=== PATIENT | female | born 1955 | race Caucasian/White ===

== ENCOUNTER 2016-08-11 07:30 | Outpatient (CLI) | payer OTHER ==
[~2016-08-11] VITALS: Ht 162.6 cm; Wt 79.4 kg
[~2016-08-11 07:30] MED LIST: ALBUTEROL MDI; ASPI1TAB PO; ATOR1TAB21 PO; COMBVENT; FISH100049 PO; GLIP5TAB15 PO; LEVA500T; LISI10TA2 PO; METF1000 PO; NICO21DI4; NS 1,000 ML IV SCH; PRED10TA2; PRED20TA; [UNRECOGNIZED DRUG - OTHER] PO
[2016-08-11] MEDS ORDERED: PROPOFOL 200 MG/20 ML VIAL As Ordered ONE (08:12)
--- NOTE | 2016-08-11 08:46 | ROOR ---
Patient Name: Ashlyn Moyer Procedure Date: 08/11/2016 8:18 AM Date of : 1955 Age: 60 Room: [facility] Gender: Female Note Status: Finalized Procedure: Colonoscopy Indications: High risk colon cancer surveillance: Personal history of colonic polyps Providers: Charles MACEDO MD Referring MD: Ace Brewster MD Requesting Provider: Medicines: Monitored Anesthesia Care Complications: No immediate complications. Procedure: Pre-Anesthesia Assessment: - The heart rate, respiratory rate, oxygen saturations, blood pressure, adequacy of pulmonary ventilation, and response to care were monitored throughout the procedure. The Colonoscope was introduced through the anus and advanced to the cecum, identified by appendiceal orifice and ileocecal valve. The colonoscopy was performed without difficulty. The patient tolerated the procedure well. The quality of the bowel preparation was good. Findings: The perianal and digital rectal examinations were normal. Two sessile polyps were found in the sigmoid colon. The polyps were 4 to 5 mm in size. These polyps were removed with a cold snare. Resection and retrieval were complete. Multiple medium-mouthed diverticula were found in the sigmoid colon. Internal hemorrhoids were found during retroflexion. The hemorrhoids were mild. The exam was otherwise without abnormality on direct and retroflexion views. (Exam: Complete, Prep: Good or Excellent.) Impression: - Two 4 to 5 mm polyps in the sigmoid colon, removed with a cold snare. Resected and retrieved. - Mild diverticulosis in the sigmoid colon. - Internal hemorrhoids. - The examination was otherwise normal on direct and retroflexion views. Recommendation: - Repeat colonoscopy in 5 years for surveillance. Charles Maecdo MD Charles MACEDO MD 08/11/2016 8:45:41 AM This report has been signed electronically. Number of Addenda: 0 Note Initiated On: 08/11/2016 8:18 AM Estimated Blood Loss: Estimated blood loss: none.
[2016-08-11 09:10] VITALS: BP 140/79
== END 2016-08-11 09:48 ==
LOC: M OPP 07:30
PROVIDERS: ATTEND Internal Medicine Gastroenterology
DX: Z12.11 Encounter for screening for malignant neoplasm of colon (principal); Z86.010 Personal history of colon polyps; D12.5 Benign neoplasm of sigmoid colon; K57.30 Diverticulosis of large intestine without perforation or abscess without bleeding; K64.8 Other hemorrhoids; I10 Essential (primary) hypertension; J44.9 Chronic obstructive pulmonary disease, unspecified; E11.9 Type 2 diabetes mellitus without complications; M19.90 Unspecified osteoarthritis, unspecified site; M54.2 Cervicalgia; Z79.82 Long term (current) use of aspirin; Z79.84 Long term (current) use of oral hypoglycemic drugs; Z79.899 Other long term (current) drug therapy

== ENCOUNTER 2016-08-21 15:43 | Inpatient (IN) | payer OTHER ==
[~2016-08-21] VITALS: Ht 162.6 cm; Wt 85.3 kg
[~2016-08-21 15:43] MED LIST changes: -NS 1,000 ML IV SCH
[2016-08-21] MEDS ORDERED: ANORO (16:09)
[2016-08-21] MEDS ORDERED: LASI40TA PO (16:09)
[2016-08-21] MEDS ORDERED: methylPREDNISolone INJ 125 MG/2 ML VIAL (J2930) IV ONE (16:30)
[2016-08-21] MEDS: IPRATROPIUM 0.5MG/ALBUTEROL 2.5MG INH SOL UD 3ML (DUONEB)(J7620) NEB PRN ×3 (16:44→18:00)
[2016-08-21 16:51] LABS: ABG BASE EXCESS 4.7 (-2.0-2.0); ABG HCO3 33.3 MEQ/L (22.0-26.0); ABG PARTIAL PRESSURE O2 71.5 mmHg (75.0-100.0); ABG STANDARD HCO3 28.6 MEQ/L (22.0-26.0); ABG TOTAL CO2 35.3 MEQ/L (23.0-31.0); ABG pH (ARTERIAL) 7.324 UNITS (7.350-7.450)
[2016-08-21 16:52] LABS: ABG PARTIAL PRESSURE CO2 65.5 mmHg (35.0-45.0)
[2016-08-21 17:06] LABS: BASO % 0.6 % (0.0-1.0); EOS % 0.4 % (0.0-3.0); LARGE UNSTAINED CELL # 0.2 K/mm3 (0.0-0.4); LARGE UNSTAINED CELL % 2.7 % (0.0-4.0); LYMPH # 1.1 K/mm3 (1.5-4.5); LYMPH % 19.5 % (24.0-44.0); MEAN CORPUSCULAR HEMOGLOBIN 30.6 pg (27.0-33.0); MEAN CORPUSCULAR HGB CONC 30.9 g/dl (32.0-36.5); MEAN CORPUSCULAR VOLUME 99.2 fl (80.0-96.0); MONO # 0.3 K/mm3 (0.0-0.8); MONO % 5.8 % (0.0-5.0); NEUTROPHILS % 70.9 % (36.0-66.0); PLATELET COUNT, AUTOMATED 190 k/mm3 (150-450); RED CELL DISTRIBUTION WIDTH 13.8 % (11.5-14.5); WHITE BLOOD COUNT 5.7 K/mm3 (4.0-10.0)
[2016-08-21 17:09] LABS: CREATININE FOR GFR 1.02 MG/DL (0.55-1.02); GLOMERULAR FILTRATION RATE 58.8 (>45); POTASSIUM SERUM 4.7 MEQ/L (3.5-5.1)
[2016-08-21] MEDS ORDERED: ISOVUE-370 76% 100ML VIAL (Q9967) As Ordered ONE (17:34)
--- NOTE | 2016-08-21 17:54 | REP ---
Portable chest x-ray: Single view. History: Dyspnea and cough. Comparison study: August 13, 2016. Findings: EKG monitoring electrodes overlie the chest. The lungs are well inflated and clear. Pleural angles are sharp. Heart is near the upper range of normal in size. Pulmonary vasculature appears slightly cephalized. There is no evidence of pulmonary edema or pleural effusion. Impression: Cephalization of pulmonary vasculature. Fullness in the azygos venous region. Question CHF. No acute infiltrate. No pleural effusion seen. Signed by Berhane Al MD 08/21/2016 07:02 P
[2016-08-21] MEDS ORDERED: ONGL1TAB9 PO (18:47)
[2016-08-21] MEDS ORDERED: GLIP5TAB8 PO (18:47)
[2016-08-21] MEDS ORDERED: LISI10TA4 PO (18:47)
[2016-08-21] MEDS ORDERED: COMBAER6 INH (18:47)
--- NOTE | 2016-08-21 19:02 | REP ---
CT pulmonary angiogram: With IV contrast. History: Question pulmonary embolism. Comparison studies: March 13, 2009 Contrast dose: 75 cc's of Isovue [address] technique: Helical scanning is acquired and overlapping 1.5 mm and contiguous 3 mm axial images are reformatted. In addition, a 3-D work station is deployed to generate thick slab maximum intensity projection images in sagittal and coronal imaging projections. CT pulmonary angiographic findings: There is good opacification of the pulmonary arterial tree. There is no CT evidence of pulmonary embolism. No hilar or mediastinal mass is seen. There are a few pretracheal and subcarinal and hilar lymph nodes, but these are not enlarged. Indeed they are unchanged from the 2009 prior study. Lung hinds show no evidence of infiltrate. No pleural effusion or pericardial effusion is seen. No extrathoracic mass or adenopathy is observed. No adrenal lesion is seen. The visualized upper abdominal structures are unremarkable. No bony lesion is seen. Impression: 1. No CT evidence of pulmonary embolism. 2. No active cardiopulmonary disease. Stable mediastinal and hilar lymph nodes. Signed by Berhane Al MD 08/21/2016 07:03 P
[2016-08-21] MEDS ORDERED: ACETAMINOPHEN TAB 650MG DOSE (2X325MG) PO PRN (20:00)
[2016-08-21] MEDS ORDERED: DEXTROSE 50% 50 ML SYRINGE IV PRN (20:00)
[2016-08-21] MEDS ORDERED: ALBUTEROL SULFATE 2.5 MG/0.5 ML INH NEB SOLN INH PRN (20:00)
[2016-08-21] MEDS ORDERED: GLUCAGON FOR INJ 1 MG VIAL (J1610) SC PRN (20:00)
[2016-08-21] MEDS ORDERED: ONDANSETRON 4MG/2ML VIAL (J2405) IV PRN (20:00)
[2016-08-21] MEDS ORDERED: GLUCOSE 4 GM CHEW TABLET PO PRN (20:00)
--- NOTE | 2016-08-21 20:49 | HPEPDOC ---
General Date of Admission Aug 21, 2016 at 19:46 Primary Care Physician: NIKA NEGRON MD [facility] Attending Physician: BRENDON GRANT MD Chief Complaint The patient is a 60-year-old female admitted with a reason for visit of Copd W/ Exacerbation. Source: Patient, Family Exam Limitations: No limitations Timing/Duration: Week(s), Constant, Getting worse Severity: Moderate Associated Symptoms: Cough, Shortness of breath History of Present Illness PRIMARY CARE PROVIDER: Hardeep Negron MD [facility] CHIEF COMPLAINT: Worsening shortness of breath HISTORY OF PRESENT ILLNESS: 60 year old female with past medical history of COPD, insulin- dependent diabetes mellitus, history of pneumonia many years ago, diverticulosis , sigmoid colon polyps status post near polypectomy with a path report stating: adenomatous polyps/tubular adenomas, heavy tobacco smoking is presenting today for a greater than 1 week history of progressively worsening shortness of breath which was the worst last night and today. Daughter at bedside states that patient had colonoscopy the week of August 14 at which time after the procedure, her oxygen level was not able to go above 78%, she was put on 4 L of oxygen which brought her O2 sat up to the low 90s. When taken off the oxygen, the O2 sat went back down to 82%. She was then referred to her PCP Dr. Negron to get oxygen. On August 13, she went to Dr. Negron realized that the patient was retaining fluid. He referred for a chest x-ray and echocardiogram. Chest x- ray was done at [facility] and the family had found out this week that there were fluid in the patient's lungs. Dr. Negron started the patient on water pills and doubled up the pills this week because the patient was still having symptoms of shortness of breath. [facility] [place] [facility] [place] [facility] [place] but the patient had gotten severe shortness of breath last night could not sleep and could not take deep breaths. She was then brought to the emergency department around 3 PM and her oxygen saturation was 69% as per daughter. Upon review of systems, the patient reports ankle swelling, retaining fluid, dry cough, and daytime sleepiness as per daughter. Daughter states that patient does fall asleep in the middle of a conversation. Patient denies fevers , chills, chest pain, dizziness, sore throat, runny nose, phlegm production, abdominal pain, nausea, vomiting, diarrhea, constipation, rashes or lesions. When the patient came to the ED, her vital signs were significant for a tachycardia with a pulse of 106, tachypnea with respiratory failure 4, a blood pressure was elevated at 167/80, and a pulse ox which was 82% on room air. In the ED, an ABG was done which showed a pH of 7.324/PCO2 65.5/PaO2 of 71.5 which is consistent with primary disorder of respiratory acidosis with metabolic alkalosis. Labs were significant for a bicarbonate of 39, a glucose of 369, a BNP of 424, a negative troponin of 0.03, CK-MB of 17, a TSH of 0.589, a lactic acid of 1.6, a neutrophil percent of 70.9, a lymphocyte percent of 19.5, a monocyte percent of 5.8, and a lymphocyte number of 1.1. EKG was done today that showed sinus rhythm with a short OR interval, normal axis, right ventricular hypertrophy and ST-T change with a ventricular rate of 98 bpm, OR interval 110 ms, QRS duration 78 ms, and a QTc interval 409 ms. Previous EKG done on 03/12/2009 had shown sinus tachycardia with a ventricular rate of 102. In addition, a CT and of the chest with IV contrast was done which showed no evidence of PE, no active cardiopulmonary disease, stable mediastinal and hilar lymph nodes. A portable chest x-ray that showed no evidence of pulmonary edema, pleural effusion, cephalization of pulmonary vasculature, fullness in the azygous vein venous region, no acute infiltrate, and questionable CHF. In the ED, the patient was administered 3 doses of DuoNeb 0.5 mg/2.5 mg every 20 minutes when necessary shortness of breath, Solu-Medrol 125 mg IV once, and 4 L of oxygen via nasal cannula. After the patient was placed on 4 L of oxygen, her pulse oximetry readings range from 92-98%. ALLERGIES: None reported. PAST MEDICAL HISTORY: COPD NIDDM History of pneumonia many years ago Diverticulosis Sigmoid colon: Polyps status post near polypectomy with adenomatous polyps/ tubular adenomas on pathology Umbilical hernia Wears eyeglasses for reading Heavy tobacco smoker PAST SURGICAL HISTORY: Tubal ligation Appendectomy with hernia repair 1996 Colonoscopy to cecum with cold snare polypectomy SOCIAL HISTORY: Smoked greater than one pack per day for at least 40 years," a couple cartons per week". Now, smokes a few cigarettes per day. Tried vaporizer cigarettes. No EtOH use. No illicit drug use. Lives with at home with one dog Does not work Has received the flu shot this season Admits she has received the pneumonia shot but cannot remember when FAMILY HISTORY: Multiple myeloma Heart disease Diabetes mellitus in mother, father, aunt Son who of esophageal cancer at age 39 Throat cancer CODE STATUS: FULL CODE for now and does not have MOLST form yet. Healthcare Proxy: Ethan Moyer REVIEW OF SYSTEMS: All review of systems were negative except for as stated above. PHYSICAL EXAMINATION: Vitals: T: 98.8, BP: 167/80, RR: 24, P:106, O2 Saturation: 82% room air General: Cooperative, obese elderly female sitting up at head of bed, in no acute distress. HEENT: Head: normocephalic, atraumatic. Eyes: sclera are nonicteric. Nose: No external lesions Throat: no pharyngeal erythema or exudates, moist buccal mucosa Neck: No thyromegaly. Respiratory: Positive and expiratory wheezes in all lung hinds bilaterally. Minimal crackles appreciated in right lung base. No accessory muscle usage noted. Cardiovascular: regular rate and rhythm, with no murmurs, rubs or gallops. Abdomen: soft, nontender, nondistended, no hepatosplenomegaly appreciated. Bowel sounds present. Extremities: +2 pitting lower extremity edema bilaterally. Neurological: No focal neurologic deficits appreciated bilaterally. Musculoskeletal: Normal range of motion. Lymphatics: No cervical lymphadenopathy bilaterally. Integumentary: No rashes or lesions appreciated. Vascular: +2 left radial pulse, +2 dorsalis pedis/+2 posterior tibialis pulses bilaterally LABORATORY DATA: Please see below. MICROBIOLOGY: Blood cultures pending. ELECTROCARDIOGRAM: As stated above. RADIOLOGY: CT scan of the chest with IV contrast: No evidence of PE, no active cardiopulmonary disease, stable mediastinal hilar lymph nodes. Portable chest x-ray: No evidence of pulmonary edema or pleural effusion, cephalization of pulmonary vasculature, fullness in the azygous venous region, no acute infiltrate, questionable CHF. ASSESSMENT: 60-year-old female with a past medical history significant for COPD, heavy tobacco smoking, history of pneumonia many years ago, xxa-cokirkd-ovmasthih diabetes mellitus, presents for acute on chronic hypoxic respiratory failure with chronic hypercapnic respiratory failure/acute on chronic COPD exacerbation. She also presents with lower extremity edema. PLAN: -Acute on Chronic Hypoxic Respiratory Failure with Chronic Hypercapnic Respiratory Failure/Acute on Chronic COPD exacerbation: Will start Solu-Medrol 60 mg IV every 8 hours, DuoNeb 3 mL nebulizer routine 4 times a day/every 20 minutes when necessary shortness of breath. Continue Proventil neb 2.5 mg every 2 hours when necessary shortness of breath/wheezing. We will keep on oxygen via nasal cannula and titrate to 88-92%. Will do accapella and do aggressive pulmonary toilet. Patient with no evidence of fever, leukocytosis or cough with sputum production. We'll hold off on antibiotics at this point in time. Have ordered blood cultures. We'll follow up when available. Have placed patient on nicotine patch 21 mg per 24 hours 1 patch TD daily. -Lower Extremity Edema: We'll give Lasix 40 mg IV twice a day. We'll monitor kidney function with BMPs daily and magnesium level daily. We'll replete electrolytes as necessary. Keep magnesium greater than 2 and potassium > 4. Monitor daily I's and O's and weights. -Insulin-dependent diabetes mellitus: We'll continue aspirin 81 mg by mouth daily, atorvastatin 20 mg by mouth daily, and placed on sliding scale insulin Humalog subcutaneous daily at bedtime and before meals. For hypoglycemia, have D50W 50% 25 mL IV when necessary, glucagon 1 mg subcutaneous when necessary, and glucose 16 grams PRN. -Heavy tobacco smoker: Had a long discussion regarding tobacco cessation. Have placed on nicotine patch as above. -Continue home medications. FULL CODE status for now. Will plan on discussing and completing MOLST form with patient tomorrow. DVT ppx: Lovenox 40 mg subcutaneous daily. Immunizations as per protocol. My preceptor for this patient encounter was Dr. Brendon Grant, and was physically present in the building during the encounter and was fully available. As needed , all aspects of the patient interview, examination, medical decision making process, and medical care plan development were reviewed and approved by the preceptor. Preceptor is aware and concurs with the plan as stated in the body of this note and will attest to such by his/her cosignature. Home Medications Scheduled Albuterol/Ipratropium (Combivent Respimat 20-100 Mcg/Act) 1 Aer Aer 1 PUFF INH QID (Reported) Aspirin (Aspirin 81) 81 Mg Tab 81 MG PO DAILY (Reported) Atorvastatin Calcium (Atorvastatin Calcium) 20 Mg Tab 20 MG PO DAILY (Reported ) Fish Oil (Fish Oil 1000 mg) 1 Cap Cap 1 CAP PO BID (Reported) Furosemide (Lasix) 40 Mg Tab 40 MG PO DAILY (Reported) Glipizide (Glipizide) 5 Mg Tab 5 MG PO BID (Reported) Lisinopril (Lisinopril) 10 Mg Tab 10 MG PO DAILY (Reported) Metformin Hydrochloride (Metformin HCl) 1,000 Mg Tab 1,000 MG PO BID (Reported ) Saxagliptin Hydrochloride (Onglyza) 5 Mg Tab 5 MG PO DAILY (Reported) Allergies Coded Allergies: No Known Drug Allergy (Verified Allergy, Unknown, 09/13/12) Vital Signs As above. Laboratory Data Labs 24H Laboratory Tests 2 08/21/16 16:37: B-Type Natriuretic Peptide 424H, White Blood Count 5.7, Red Blood Count 5.13, Hemoglobin 15.7, Hematocrit 50.9H, Mean Corpuscular Volume 99.2H, Mean Corpuscular Hemoglobin 30.6, Mean Corpuscular Hemoglobin Concent 30.9L, Red Cell Distribution Width 13.8, Platelet Count 190, Neutrophils (%) (Auto) 70.9H, Lymphocytes (%) (Auto) 19.5L, Monocytes (%) (Auto) 5.8H, Eosinophils (%) (Auto) 0.4, Basophils (%) (Auto) 0.6, Neutrophils # (Auto) 4.0, Lymphocytes # (Auto) 1.1L, Monocytes # (Auto) 0.3, Eosinophils # (Auto) 0.0, Basophils # (Auto) 0.0, Lactic Acid (Sepsis) 1.6, Large Unclassified Cells # 0.2, Large Unclassified Cells % 2.7, Thyroid Stimulating Hormone (TSH) 0.589 08/21/16 16:38: Anion Gap 5L, Blood Urea Nitrogen 15, Creatinine 1.02, Sodium Level 138, Potassium Level 4.7, Chloride Level 94L, Carbon Dioxide Level 39H, Calcium Level 8.0L, Total Creatine Kinase 68, Creatine Kinase MB 1.7, Creatine Kinase MB Relative Index 2.50, Glomerular Filtration Rate 58.8, Troponin I 0.03 08/21/16 16:39: Arterial Blood pH 7.324L, Arterial Blood Partial Pressure CO2 65.5*H, Arterial Blood Partial Pressure O2 71.5L, Arterial Blood Total CO2 35.3H, Arterial Blood HCO3 33.3H, Arterial Blood Base Excess 4.7H, Arterial Blood Oxygen Saturation 94.3L, Blood Gas Bicarbonate Standard 28.6H CBC/BMP Laboratory Tests 08/21/16 16:37 Red Blood Count 5.13, Mean Corpuscular Volume 99.2 H, Mean Corpuscular Hemoglobin 30.6, Mean Corpuscular Hemoglobin Concent 30.9 L, Red Cell Distribution Width 13.8, Neutrophils (%) (Auto) 70.9 H, Lymphocytes (%) (Auto) 19.5 L, Monocytes (%) (Auto) 5.8 H, Eosinophils (%) (Auto) 0.4, Basophils (%) ( Auto) 0.6, Neutrophils # (Auto) 4.0, Lymphocytes # (Auto) 1.1 L, Monocytes # ( Auto) 0.3, Eosinophils # (Auto) 0.0, Basophils # (Auto) 0.0 08/21/16 16:38 Calcium Level 8.0 L, Total Creatine Kinase 68 Microbiology Microbiology 08/21/16 Blood Culture, Received Pending 08/21/16 Blood Culture, Received Pending Plan / VTE VTE Prophylaxis Ordered?: Yes (Lovenox) [place] [facility] [place] 20:[place] [facility] [place] 2016 20:49
[2016-08-21] MEDS: IPRATROPIUM 0.5MG/ALBUTEROL 2.5MG INH SOL UD 3ML (DUONEB)(J7620) NEB SCH (21:17)
[2016-08-21] MEDS: NICOTINE 21MG/24HR 1 EA TRANSDERMAL TD SCH (22:10)
[2016-08-21] MEDS: HumaLOG INSULIN (NovoLOG) PER UNIT SC SCH (22:11)
[2016-08-21 22:25] VITALS: BP 140/58
[2016-08-21] MEDS: OMEGA-3 1050MG CAPSULE PO SCH (22:38)
[2016-08-21 23:00] VITALS: O2SAT 90
[2016-08-22] VITALS (17 sets, daily range): BP systolic 124–155; BP diastolic 62–81; O2SAT 92–98
[2016-08-22] MEDS: methylPREDNISolone INJ 125 MG/2 ML VIAL (J2930) IV SCH ×3 (00:10→20:30)
[2016-08-22] MEDS ORDERED: SLF 3 ML SYR IV PRN (00:30)
[2016-08-22] MEDS: SLF 3 ML SYR IV SCH ×3 (04:24→20:31)
[2016-08-22] MEDS ORDERED: HumaLOG INSULIN (NovoLOG) PER UNIT SC ONE (05:45)
[2016-08-22] MEDS: IPRATROPIUM 0.5MG/ALBUTEROL 2.5MG INH SOL UD 3ML (DUONEB)(J7620) NEB SCH ×4 (07:46→19:55)
[2016-08-22 07:59] LABS: MEAN CORPUSCULAR HEMOGLOBIN 30.3 pg (27.0-33.0); MEAN CORPUSCULAR HGB CONC 29.3 g/dl (32.0-36.5); MEAN CORPUSCULAR VOLUME 103.5 fl (80.0-96.0); RED CELL DISTRIBUTION WIDTH 13.5 % (11.5-14.5); WHITE BLOOD COUNT 3.5 K/mm3 (4.0-10.0)
[2016-08-22 08:07] LABS: CALCIUM LEVEL 8.5 MG/DL (8.8-10.2); CREATININE FOR GFR 1.09 MG/DL (0.55-1.02); GLOMERULAR FILTRATION RATE 54.5 (>45); MAGNESIUM LEVEL 2.1 MG/DL (1.8-2.4)
[2016-08-22 08:16] LABS: POTASSIUM SERUM 5.5 MEQ/L (3.5-5.1)
[2016-08-22] MEDS: ENOXAPARIN 40 MG/0.4 ML SYRINGE (J1650) SC SCH (08:53)
[2016-08-22] MEDS: FUROSEMIDE 40 MG/4 ML VIAL (J1940) IV SCH ×2 (08:54→17:07)
[2016-08-22] MEDS: ASPIRIN 81 MG ENTERIC TAB PO SCH (08:55)
[2016-08-22] MEDS: ATORVASTATIN 20 MG TAB PO SCH (08:55)
[2016-08-22] MEDS: NICOTINE 21MG/24HR 1 EA TRANSDERMAL TD SCH (08:55)
[2016-08-22] MEDS: OMEGA-3 1050MG CAPSULE PO SCH ×2 (08:55→20:31)
[2016-08-22] MEDS: HumaLOG INSULIN (NovoLOG) PER UNIT SC SCH ×4 (08:56→20:30)
[2016-08-22] MEDS: DOXYCYCLINE HYCLATE 100 MG in D5W MINI-BAG PLUS 100 ML IV SCH ×2 (10:18→21:41)
--- NOTE | 2016-08-22 12:17 | IPNPDOC ---
Text Note Date of Service The patient was seen on 08/22/16. NOTE SUBJECTIVE: 60 yo F was seen and examined at bedside. Denies fevers, chills, chest pain, dizziness, headache, nausea, vomiting, abdominal pain, diarrhea, constipation. Admits she still has leg swelling. Admits she has paroxysmal nocturnal dyspnea, orthopnea, and has to sleep with 3 pillows propped up. She admits to SOB with exertion. Patient's daughter at bedside also reports patient' s sugar level went into the 500s overnight, the patient became agitated and confused, and she refused her labs this morning because of that. According to day nursing report, patient became combative and her blood glucose was 593, 10 units of insulin were administered, and blood glucose is now down to 516. Labs were eventually drawn this morning at 8 AM. Please see below. In addition, daughter states patient has not had echocardiogram that was ordered by Dr. Brewster yet. Patient is also not on home oxygen or CPAP normally, but patient just got home oxygen last night that Dr. Brewster had ordered for her. In addition, patient has not had a sleep study nor does she follow with a receiving clerk. OBJECTIVE: Vitals: T: 98.1, BP: 141/76, RR: 22, P:96, O2 Saturation: 93% on 3 L nasal cannula. General: Cooperative, obese elderly female sitting up in middle of bed, in no acute distress, AAO x 3. HEENT: Head: normocephalic, atraumatic. Eyes: sclera are nonicteric. Nose: No external lesions Neck: No thyromegaly. Respiratory: Positive end expiratory wheezes in all lung hinds bilaterally. Minimal crackles appreciated in right lung base. No accessory muscle usage noted. Cardiovascular: regular rate and rhythm, with no murmurs, rubs or gallops. Abdomen: soft, nontender, nondistended, no hepatosplenomegaly appreciated. Bowel sounds present. Extremities: +2 pitting lower extremity edema bilaterally. Neurological: No focal neurologic deficits appreciated bilaterally. Musculoskeletal: Normal range of motion. Lymphatics: No cervical lymphadenopathy bilaterally. Integumentary: No rashes or lesions appreciated. Vascular: +2 left radial pulse, +2 dorsalis pedis pulses bilaterally. LABORATORY DATA: Please see below. Morning Labs from 08/22/16 WBC: 3.5 (L) K: 5.5 (H) CO2: 37 (H) BUN: 23 (H) Cr: 1.09 (H) Glucose: 516 (H) M.1 (N) MICROBIOLOGY: Blood cultures pending. ELECTROCARDIOGRAM from 08/22/16 (Repeat): Showed: Intervals [place] Rate: 98 P: 73 MA: 123 QRS: 105 QRSD: 94 T: 48 QT: 332 QTc: [address] Garcia: "Normal sinus rhythm at 98 bpm. P pulmonale? Right axis deviation with low voltages and poor precordial R-wave progression; body habitus versus pulmonary disease." RADIOLOGY: No new imaging today. Echocardiogram will be pending. ASSESSMENT: 60-year-old female with a past medical history significant for COPD, heavy tobacco smoking, history of pneumonia many years ago, xix-vrldbvw-rgedamvnv diabetes mellitus, presents for acute on chronic hypoxic respiratory failure with chronic hypercapnic respiratory failure/acute on chronic COPD exacerbation. She also presents with lower extremity edema. PLAN: -Acute on Chronic Hypoxic Respiratory Failure with Chronic Hypercapnic Respiratory Failure/Acute on Chronic COPD exacerbation: Suspect additionally obstructive sleep apnea that patient should definitely have evaluation for as outpatient as she reports PND. Also have some suspicion for R heart failure as patient reports SOB with exertion as well as orthopnea and has edema in lower extremities, for which we will order Echocardiogram today as it was not done when Dr. Brewster ordered it. Will decrease dose of Solu-Medrol from 60 mg IV every 8 hours to 40 mg IV q12 hours as it is most likely causing patient's hyperglycemia. Patient satting in 90s% on 3 L nasal cannula down from 4 L. Continue DuoNeb 3 mL nebulizer routine 4 times a day routine. Continue Proventil neb 2.5 mg every 2 hours when necessary shortness of breath/wheezing. We will keep on oxygen via nasal cannula and titrate to 88-92%. Will do accapella and do aggressive pulmonary toilet. Patient with no evidence of fever , leukocytosis or cough with sputum production. Will start doxycycline hyclate 100 mg PO BID to treat/prevent any potential for infection. Blood cx pending. We 'll follow up when available. Have placed patient on nicotine patch 21 mg per 24 hours 1 patch TD daily. -Lower Extremity Edema: Still some pitting edema in lower extremities bilaterally. Patient admits she has urinated a lot. We'll continue Lasix 40 mg IV twice a day. Echocardiogram later today. We'll monitor kidney function with BMPs daily and magnesium level daily. We'll replete electrolytes as necessary. Keep magnesium > 2 and potassium > 4. Monitor daily I's and O's and weights. -Acute Kidney Injury: BUN has gone up to 23 today from 15 yesterday. Cr has bumped up to 1.09 from 1.02 yesterday. This is likely due to lasix as well as dehydration. Will encourage oral rehydration for now and follow daily renal function with daily BMPs. -Insulin-dependent diabetes mellitus/Hyperglycemia: Fasting sugars are high in the 500s this AM. Anion gap is not high and is 5 (low). Bicarb is still high at 37. We'll continue on sliding scale insulin Humalog subcutaneous daily at bedtime and before meals and add Levemir long acting insulin, and titrate dose up until glucose levels reach between low 100s to 180. We'll continue aspirin 81 mg by mouth daily, atorvastatin 20 mg by mouth daily. For hypoglycemia, have D50W 50% 25 mL IV when necessary, glucagon 1 mg subcutaneous when necessary, and glucose 16 grams PRN. Continue carbohydrate consistent diet. -Heavy tobacco smoker: Had a long discussion regarding tobacco cessation. Have placed on nicotine patch as above. -Continue home medications. FULL CODE status for now. Will plan on discussing and completing MOLST form today. DVT ppx: Lovenox 40 mg subcutaneous daily. Immunizations as per protocol. My preceptor for this patient encounter was Dr. Charles Grant, and was physically present in the building during the encounter and was fully available. As needed , all aspects of the patient interview, examination, medical decision making process, and medical care plan development were reviewed and approved by the preceptor. Preceptor is aware and concurs with the plan as stated in the body of this note and will attest to such by his/her cosignature. VS,Fishbone, I+O VS, Fishbone, I+O Laboratory Tests 08/21/16 16:37 Red Blood Count 5.13, Mean Corpuscular Volume 99.2 H, Mean Corpuscular Hemoglobin 30.6, Mean Corpuscular Hemoglobin Concent 30.9 L, Red Cell Distribution Width 13.8, Neutrophils (%) (Auto) 70.9 H, Lymphocytes (%) (Auto) 19.5 L, Monocytes (%) (Auto) 5.8 H, Eosinophils (%) (Auto) 0.4, Basophils (%) ( Auto) 0.6, Neutrophils # (Auto) 4.0, Lymphocytes # (Auto) 1.1 L, Monocytes # ( Auto) 0.3, Eosinophils # (Auto) 0.0, Basophils # (Auto) 0.0 08/21/16 16:38 Calcium Level 8.0 L, Total Creatine Kinase 68 08/22/16 07:32 Red Blood Count 5.07, Mean Corpuscular Volume 103.5 H, Mean Corpuscular Hemoglobin 30.3, Mean Corpuscular Hemoglobin Concent 29.3 L, Red Cell Distribution Width 13.5, Calcium Level 8.5 L Vital Signs Date Time Temp Pulse Resp B/P Pulse Ox O2 Delivery O2 Flow Rate FiO2 08/22/16 08:00 97.7 101 20 124/66 94 Nasal Cannula 3.0 I&O- Last 24 Hours up to 6 AM 08/22/16 06:00 Output Total 750 ml Balance -750 ml GME ATTESTATION GME ATTESTATION My preceptor for this patient encounter was Dr. Charles Grant, and was physically present in the building during the encounter and was fully available. As needed , all aspects of the patient interview, examination, medical decision making process, and medical care plan development were reviewed and approved by the preceptor. Preceptor is aware and concurs with the plan as stated in the body of this note and will attest to such by his/her cosignature. MARISOL TURNER OGME-1 Aug 22, 2016 12:17
--- NOTE | 2016-08-22 13:46 | ECGEPIP ---
Stationary ECG Study [facility] Test Date: 2016-08-22 Pat Name: REBEL KENT Department: Room: Y9781-16 Gender: F Shipping Assistant: JOSE ARMANDO : 1955 Requested By: BRENDON Montenegro Order Number: [id number] Reading MD: Gabriele Garcia Measurements Intervals [place] Rate: 98 P: 73 CT: 123 QRS: 105 QRSD: 94 T: 48 QT: 332 QTc: 425 Interpretive Statements Normal sinus rhythm at 98 bpm. P pulmonale? Right axis deviation with low voltages and poor precordial R-wave progression; body habitus versus pulmonary disease. No prior tracing for comparison. Electronically Signed On 08-22-2016 13:45:49 EDT by Gabriele Garcia
[2016-08-22 17:34] LABS: CREATININE FOR GFR 1.22 MG/DL (0.55-1.02); GLOMERULAR FILTRATION RATE 47.9 (>45); POTASSIUM SERUM 5.1 MEQ/L (3.5-5.1)
--- NOTE | 2016-08-22 19:49 | ECGEPIP ---
Stationary ECG Study [facility] - ED Test Date: 2016-08-21 Pat Name: REBEL KENT Department: Room: - Gender: F Union Steward: jackie : 1955 Requested By: Rosalio Kuo Order Number: [id number] Reading MD: Diane rOtega Measurements Intervals [place] Rate: 98 P: 77 PA: 110 QRS: 117 QRSD: 78 T: 39 QT: 354 QTc: 453 Interpretive Statements SINUS RHYTHM WITH SHORT PA INTERVAL RIGHT AXIS DEVIATION PRWP NSTTW ABNORMALITY NO PRIOR FOR COMPARISON Electronically Signed On 08-22-2016 19:49:28 EDT by Diane Ortega
[2016-08-22] MEDS ORDERED: LEVEMIR (INSULIN DETEMIR) 1 UNITS/0.01ML SC SCH ×2 (21:00)
[2016-08-23] VITALS (16 sets, daily range): BP systolic 134–176; BP diastolic 71–82; O2SAT 88–99
[2016-08-23 05:28] LABS: MEAN CORPUSCULAR HEMOGLOBIN 30.8 pg (27.0-33.0); MEAN CORPUSCULAR HGB CONC 29.9 g/dl (32.0-36.5); MEAN CORPUSCULAR VOLUME 103.1 fl (80.0-96.0); RED CELL DISTRIBUTION WIDTH 13.6 % (11.5-14.5); WHITE BLOOD COUNT 7.5 K/mm3 (4.0-10.0)
[2016-08-23] MEDS: SLF 3 ML SYR IV SCH ×3 (05:39→21:20)
[2016-08-23 05:48] LABS: ANION GAP 1 MEQ/L (8-16); BLOOD UREA NITROGEN 26 MG/DL (7-18); CALCIUM LEVEL 8.8 MG/DL (8.8-10.2); CARBON DIOXIDE LEVEL 44 MEQ/L (21-32); CHLORIDE LEVEL 90 MEQ/L (98-107); CREATININE FOR GFR 0.93 MG/DL (0.55-1.02); GLOMERULAR FILTRATION RATE > 60.0 (>45); GLUCOSE, FASTING 353 MG/DL (80-110); MAGNESIUM LEVEL 1.9 MG/DL (1.8-2.4); SODIUM LEVEL 135 MEQ/L (136-145)
[2016-08-23] MEDS: IPRATROPIUM 0.5MG/ALBUTEROL 2.5MG INH SOL UD 3ML (DUONEB)(J7620) NEB SCH ×4 (07:25→19:54)
[2016-08-23] MEDS: HumaLOG INSULIN (NovoLOG) PER UNIT SC SCH ×4 (08:23→21:19)
[2016-08-23] MEDS: methylPREDNISolone INJ 125 MG/2 ML VIAL (J2930) IV SCH (08:23)
[2016-08-23] MEDS: ENOXAPARIN 40 MG/0.4 ML SYRINGE (J1650) SC SCH (08:23)
[2016-08-23] MEDS: FUROSEMIDE 40 MG/4 ML VIAL (J1940) IV SCH (08:23)
[2016-08-23] MEDS: OMEGA-3 1050MG CAPSULE PO SCH ×2 (08:24→21:20)
[2016-08-23] MEDS: NICOTINE 21MG/24HR 1 EA TRANSDERMAL TD SCH (08:24)
[2016-08-23] MEDS: ATORVASTATIN 20 MG TAB PO SCH (08:24)
[2016-08-23] MEDS: ASPIRIN 81 MG ENTERIC TAB PO SCH (08:24)
[2016-08-23] MEDS: DOXYCYCLINE HYCLATE 100 MG in D5W MINI-BAG PLUS 100 ML IV SCH ×2 (09:44→21:19)
[2016-08-23] MEDS: LEVEMIR (INSULIN DETEMIR) 1 UNITS/0.01ML SC SCH ×2 (09:44→21:20)
[2016-08-23] MEDS: predniSONE 20 MG TAB PO SCH (21:20)
[2016-08-24] VITALS (12 sets, daily range): BP systolic 125–153; BP diastolic 65–78; O2SAT 89–95
[2016-08-24 05:52] LABS: MEAN CORPUSCULAR HEMOGLOBIN 31.3 pg (27.0-33.0); MEAN CORPUSCULAR HGB CONC 30.6 g/dl (32.0-36.5); MEAN CORPUSCULAR VOLUME 102.5 fl (80.0-96.0); RED CELL DISTRIBUTION WIDTH 13.5 % (11.5-14.5); WHITE BLOOD COUNT 7.2 K/mm3 (4.0-10.0)
[2016-08-24] MEDS: SLF 3 ML SYR IV SCH ×3 (06:00→21:22)
[2016-08-24 06:09] LABS: ANION GAP 4 MEQ/L (8-16); BLOOD UREA NITROGEN 29 MG/DL (7-18); CALCIUM LEVEL 8.8 MG/DL (8.8-10.2); CARBON DIOXIDE LEVEL 44 MEQ/L (21-32); CHLORIDE LEVEL 89 MEQ/L (98-107); CREATININE FOR GFR 0.88 MG/DL (0.55-1.02); GLOMERULAR FILTRATION RATE > 60.0 (>45); GLUCOSE, FASTING 395 MG/DL (80-110); MAGNESIUM LEVEL 1.8 MG/DL (1.8-2.4); POTASSIUM SERUM 4.3 MEQ/L (3.5-5.1); SODIUM LEVEL 137 MEQ/L (136-145)
--- NOTE | 2016-08-24 06:12 | ECHO ---
DATE OF PROCEDURE: 08/23/2016 AGE: 60 GENDER: Female REFERRING PHYSICIAN: Dr. Bryn Pleitez. HEIGHT: 64 inches. WEIGHT: 200 pounds. BODY SURFACE AREA: 1.96 sq m. INPATIENT: PCU Room 3216. INDICATION: Edema. MEASUREMENTS: 2D MEASUREMENTS: RV - 3.6 cm LV- 4.3 cm Septum - 1.2 cm Posterior wall - 1.2 cm Aortic root: 3.4 cm LA - 3.8 cm LVEF - 65% DOPPLER MEASUREMENTS: AV - 1.3 m/s LVOT - 1.2 m/s LVOT diameter - 1.8 cm MV - 110 E- 100 EA ratio 1.1 Early mitral deacceleration time - 180 ms E-prime - 9 A-prime - 9.6 E/E prime ratio 12 PV - 1.0 m/s Pulmonary artery acceleration time - 82 ms PASP - 42 mmHg IVC - 1.8 cm COMMENT: Normal sinus rhythm without intraventricular conduction disturbance. Technically challenging study in light of the patient's body habitus but diagnostically useful information was still obtained. Left atrial size was upper limits of normal to mildly dilated. Normal left ventricular size. Right heart chamber sizes appear to be normal. On real-time imaging from the parasternal and apical projections, there appeared to be a localized proximal septal wall motion abnormality suspected to be due to right ventricular pressure overload. Other left ventricular blake move normally or were hyperkinetic. Right ventricular wall motion appeared to be normal. Normal appearing mitral valvular apparatus and leaflet excursion with no posterior systolic buckling. Three equal size aortic cusps of normal thickness and cusp separation. Normal aortic root size. No apparent intracardiac mass or pericardial effusion. Color flow Doppler study taken from the parasternal and apical projection showed trace mitral, very mild tricuspid and no aortic insufficiency. Guided continuous wave Doppler of her aortic valve showed a normal peak systolic velocity against LV outflow tract obstruction. Pulsed and continuous wave Doppler of her LV inflow tract taken from the apical four-chamber projection showed normal diastolic filling velocities against mitral stenosis. The filling pattern was also normal. This was confirmed by tissue Doppler of her mitral annulus with estimated mean left atrial pressure within normal limits. Pulsed and continuous wave Doppler of her pulmonary trunk taken from the parasternal short axis projection showed a normal peak systolic velocity against RV outflow tract obstruction. Her pulmonary artery acceleration time was abbreviated in keeping with an elevation in pulmonary vascular resistance. Her estimated pulmonary arterial systolic pressure was moderately increased. We attempted to further estimate her right ventricular systolic pressure using guided continuous wave Doppler of her tricuspid valve but could not get a clear spectral envelope. Her inferior vena cava appeared to be at least upper limits of normal to mildly dilated with reduced respiratory collapse suggestive of a slightly elevated central venous pressure. CONCLUSIONS: Somewhat technically challenging study in light of the patient's body habitus. Borderline concentric left ventricle hypertrophy with localized septal wall motion abnormality attributed to right ventricular pressure overload. Preserved global left ventricular systolic function. Borderline left atrial enlargement with currently normal Doppler assessment of LV diastolic function and estimated mean left atrial pressure. Normal right heart chamber sizes and motion with Doppler sign of moderate pulmonary hypertension. IVC size upper limits of normal to mildly dilated with reduced respiratory collapse suggestive of a slightly elevated central venous pressure. The above test findings are consistent with cor pulmonale. Recommend rule out obstructive sleep apnea.
[2016-08-24] MEDS: IPRATROPIUM 0.5MG/ALBUTEROL 2.5MG INH SOL UD 3ML (DUONEB)(J7620) NEB SCH ×3 (07:25→20:32)
[2016-08-24] MEDS: HumaLOG INSULIN (NovoLOG) PER UNIT SC SCH ×4 (08:56→21:22)
[2016-08-24] MEDS: predniSONE 20 MG TAB PO SCH ×2 (08:57→21:22)
[2016-08-24] MEDS: ASPIRIN 81 MG ENTERIC TAB PO SCH (08:57)
[2016-08-24] MEDS: OMEGA-3 1050MG CAPSULE PO SCH ×2 (08:57→21:22)
[2016-08-24] MEDS: FUROSEMIDE 40 MG TAB PO SCH (08:57)
[2016-08-24] MEDS: ATORVASTATIN 20 MG TAB PO SCH (08:57)
[2016-08-24] MEDS: NICOTINE 21MG/24HR 1 EA TRANSDERMAL TD SCH (08:58)
[2016-08-24] MEDS: ENOXAPARIN 40 MG/0.4 ML SYRINGE (J1650) SC SCH (08:58)
[2016-08-24] MEDS: LEVEMIR (INSULIN DETEMIR) 1 UNITS/0.01ML SC SCH ×2 (08:58→21:21)
[2016-08-24] MEDS: DOXYCYCLINE HYCLATE 100 MG in D5W MINI-BAG PLUS 100 ML IV SCH (08:59)
--- NOTE | 2016-08-24 10:24 | IPN ---
DATE: 08/24/2016 Ms Moyer is feeling much better today. She has no complaints of pain, chest pain, shortness of breath. She is tolerating a diet. She does become hypoxic at night. She was somewhat confused this morning as she thought I was the respiratory therapist who had been here earlier today but apart from that was alert and oriented times three. Temperature 99.0, pulse 103, respiratory rate 24, blood pressure 129/71, 94% on 4 liters. Ins and outs notable for a negative fluid balance of -2080, weight 87.7 kilograms. She is awake and appropriately interactive, pleasantly conversant. No acute distress. Breathing is notable for an I/E ratio of 1:4 improved aeration but still diminished from normal. Heart is distant sounding. Normal S1, S2. No significant arrhythmia, moderate. Pedal pulses are 2+. Capillary refill is less than 2 seconds. Abdomen soft, doughy, not tender. No lower extremity edema. White cell count 7.2 hemoglobin 15.5, BUN 29, creatinine 0.88, potassium 4.3. Blood culture negative at 48 hours. Echocardiogram shows a normal ejection fraction, normal diastolic dysfunction. Evidence of some right-sided heart failure. ASSESSMENT: This is a 60-year-old with acute on chronic hypoxic respiratory failure with chronic hypercapnic respiratory failure due to COPD exacerbation and as follows: 1. Patient's respiratory failure is improved. She is still on supplemental oxygen, which she will likely need at the time of discharge. Would like followup with pulmonology, which is currently scheduled for initial visit sometime in November. We have weaned her steroids and we have changed her Lasix to oral. I believe the combination of steroids and diuresis has improved her status. We are also continuing on doxycycline, which can also be switched to oral. 2. Patient has evidence of acute kidney injury during her stay, which has resolved to baseline. 3. Patient has insulin dependent diabetes. Fingersticks have been quite high during her stay. We will adjust the sliding scale again today. Will likely need increase in her long-acting medications tomorrow. 4. Patient is currently DO NOT RESUSCITATE.
--- NOTE | 2016-08-24 21:16 | IPN ---
DATE: 08/23/2016 Ms. Moyer is feeling much better. She is breathing more easily. No complaints of chest pain. Feels somewhat short of breath, but much better than she was yesterday. The patient has been using Acapella device without much success, but will continue using it today. Temperature is 98.7, pulse 101, respirations 22, blood pressure 128/72, 93% on 4 liters nasal cannula. Intake and output normal for a negative fluid balance of -810 yesterday and -1040 thus far today. Weighs 87.8 kg with body mass index (BMI) of 33.2. She is awake, sitting up at bedside making jokes, generally her harassing her medical staff. Mucous membranes moist. Neck is supple. Breathing is symmetrical. I:E ratio is 1 to 4. Somewhat diminished throughout but improved. Heart: Distant sounds, normal S1, S2. No significant arrhythmia on monitor. Abdomen is soft, nontender with normoactive bowel sounds. White cell count is 7.5, hemoglobin 15.1, BUN 26, creatine 0.93. My assessment is as follows: This is a 60-year-old with a chronic obstructive pulmonary disease (COPD) exacerbation and acute on chronic hypoxic respiratory failure and chronic hypercapnic respiratory failure. Plan is as follows: 1. Respiratory: The patient is generally improving. Had to wean steroids. Continue aggressive pulmonary toilet. Treat her malclearance of secretions with current use of Acapella device. Continue empiric antibiotics. 2. The patient has lower extremity edema, which has improved. Will switch Lasix to once daily orally at this point. 3. The patient has decline in renal function, which has actually improved with the use of Lasix. At this point, she would appear to be at baseline. 4. The patient has insulin-dependent diabetes and difficult to control hyperglycemia in the setting of steroid use. Will decrease the dose of her steroids and I have added Levemir. 5. The patient is an ongoing user of tobacco. We have had a long discussion regarding tobacco cessation. Hopefully, that will be successful.
[2016-08-24] MEDS: DOXYCYCLINE HYCLATE 100 MG TAB PO SCH (21:22)
[2016-08-25] MEDS: SLF 3 ML SYR IV SCH ×3 (05:04→21:26)
[2016-08-25 06:00] VITALS: BP 142/84
[2016-08-25] MEDS: IPRATROPIUM 0.5MG/ALBUTEROL 2.5MG INH SOL UD 3ML (DUONEB)(J7620) NEB SCH ×4 (08:00→20:42)
[2016-08-25 08:14] LABS: MEAN CORPUSCULAR HEMOGLOBIN 31.9 pg (27.0-33.0); MEAN CORPUSCULAR HGB CONC 31.9 g/dl (32.0-36.5); MEAN CORPUSCULAR VOLUME 100.2 fl (80.0-96.0); RED CELL DISTRIBUTION WIDTH 13.4 % (11.5-14.5); WHITE BLOOD COUNT 7.8 K/mm3 (4.0-10.0)
[2016-08-25 08:29] LABS: ANION GAP 3 MEQ/L (8-16); BLOOD UREA NITROGEN 29 MG/DL (7-18); CALCIUM LEVEL 8.7 MG/DL (8.8-10.2); CARBON DIOXIDE LEVEL 44 MEQ/L (21-32); CHLORIDE LEVEL 92 MEQ/L (98-107); CREATININE FOR GFR 0.71 MG/DL (0.55-1.02); GLOMERULAR FILTRATION RATE > 60.0 (>45); GLUCOSE, FASTING 278 MG/DL (80-110); MAGNESIUM LEVEL 1.8 MG/DL (1.8-2.4); POTASSIUM SERUM 4.6 MEQ/L (3.5-5.1); SODIUM LEVEL 139 MEQ/L (136-145)
[2016-08-25] MEDS: ENOXAPARIN 40 MG/0.4 ML SYRINGE (J1650) SC SCH (08:34)
[2016-08-25] MEDS: HumaLOG INSULIN (NovoLOG) PER UNIT SC SCH ×4 (08:35→21:23)
[2016-08-25] MEDS: LEVEMIR (INSULIN DETEMIR) 1 UNITS/0.01ML SC SCH ×2 (08:36→21:22)
[2016-08-25] MEDS: NICOTINE 21MG/24HR 1 EA TRANSDERMAL TD SCH (08:37)
[2016-08-25] MEDS: ASPIRIN 81 MG ENTERIC TAB PO SCH (08:38)
[2016-08-25] MEDS: ATORVASTATIN 20 MG TAB PO SCH (08:38)
[2016-08-25] MEDS: predniSONE 20 MG TAB PO SCH (08:38)
[2016-08-25] MEDS: DOXYCYCLINE HYCLATE 100 MG TAB PO SCH ×2 (08:38→21:22)
[2016-08-25] MEDS: FUROSEMIDE 40 MG TAB PO SCH (08:39)
[2016-08-25] MEDS: OMEGA-3 1050MG CAPSULE PO SCH ×2 (08:39→21:22)
[2016-08-25 09:23] VITALS: BP 133/78
[2016-08-25] MEDS: MAG SULF 1GM/100ML (MAG RUN) 1 GM in APPROPRIATE DILUENT 1 EA IV SCH ×2 (11:30→12:46)
[2016-08-25 14:00] VITALS: BP 161/78
[2016-08-25 15:10] VITALS: BP 144/76
[2016-08-25 22:00] VITALS: BP 142/84
--- NOTE | 2016-08-25 23:30 | IPNPDOC ---
Text Note Date of Service The patient was seen on 08/25/16. NOTE SUBJECTIVE: 60 yo F was seen and examined at bedside. Denies fevers, chills, chest pain, dizziness, headache, nausea, vomiting, abdominal pain, diarrhea, constipation. Denies any significant leg swelling. Admits to SOB with exertion. Asking whether she can have some sugar in her tea, whether she can go home today and have her IV taken out, and asking whether she can get her Pulmonology appointment that is scheduled in November to be pushed earlier. OBJECTIVE: Vitals: T: 97.4, BP: 142/84, RR: 20, P:100, O2 Saturation: 91% on 3 L nasal cannula. BMs: 1 today General: Cooperative, obese elderly female lying in bed in no acute distress, AAO x 3. HEENT: Head: normocephalic, atraumatic. Eyes: sclera are nonicteric. Nose: No external lesions Neck: No thyromegaly. Respiratory: Minimal but audible end expiratory wheezes in all lung hinds bilaterally. No rales or rhonchi appreciated. No accessory muscle usage noted. Cardiovascular: regular rate and rhythm, with no murmurs, rubs or gallops. Abdomen: soft, nontender, nondistended, no hepatosplenomegaly appreciated. Bowel sounds present. Extremities: very mild edema in lower extremities bilaterally. Neurological: No focal neurologic deficits appreciated bilaterally. Musculoskeletal: Normal range of motion. Lymphatics: No cervical lymphadenopathy bilaterally. Integumentary: No rashes or lesions appreciated. Vascular: +2 left radial pulse, +2 dorsalis pedis pulses bilaterally. LABORATORY DATA: Please see below. CBC WNL. BMP showed CO2 44, BUN 29, Cr 0.71, Ca: 8.7, Fasting Glucose: 278, and fingerstick POC at 7:31 of 253 this AM. MICROBIOLOGY: Blood cultures: NGTD x 72 hours. RADIOLOGY: No new imaging today. ASSESSMENT: 60-year-old female with a past medical history significant for COPD, heavy tobacco smoking, history of pneumonia many years ago, lti-kxjepxl-fjaiwisji diabetes mellitus, presents for acute on chronic hypoxic respiratory failure with chronic hypercapnic respiratory failure/acute on chronic COPD exacerbation. She also presents with lower extremity edema. PLAN: -Acute on Chronic Hypoxic Respiratory Failure with Chronic Hypercapnic Respiratory Failure/Acute on Chronic COPD exacerbation: Suspect additionally obstructive sleep apnea that patient should definitely have evaluation for as outpatient as she reports PND. Also have some suspicion for R heart failure as patient reports SOB with exertion as well as orthopnea and has edema in lower extremities. Echocardiogram showed findings consistent with Cor Pulmonale and it was recommended for patient to have PETE ruled out. She has an appointment with Dr. Hurtado Pulmonology on November 16 at 1:30, however patient does not wish to quit smoking despite our counseling/recommendations which will make it difficult to get an early appointment at the Pulmonology office. Patient satting in 90s% on 3 L nasal cannula down from 4 L. Walk test on room air today showed O2 saturation drop to 82% Patient in need of full-time oxygen at this time. Have prescribed continous oxygen therapy for home. Continue DuoNeb 3 mL nebulizer routine 4 times a day. Continue Proventil neb 2.5 mg every 2 hours when necessary shortness of breath/wheezing. Will taper prednisone down from 40 mg BID to 40 mg PO qdaily. We will keep on oxygen via nasal cannula and titrate to 88-92%. Will do accapella and do aggressive pulmonary toilet. Patient with no evidence of fever, leukocytosis or cough with sputum production. Will continue doxycycline hyclate 100 mg PO BID to treat/prevent any potential for infection. Blood cx show NGTD x 72 hours. We'll follow up when available. Have placed patient on nicotine patch 21 mg per 24 hours 1 patch TD daily. -Lower Extremity Edema: Much improved from prior but not completely resolved. We 'll continue Lasix 40 mg IV qdaily. We'll monitor kidney function with BMPs daily and magnesium level daily. We'll replete electrolytes as necessary. Keep magnesium > 2 and potassium > 4. Monitor daily I's and O's and weights. -Acute Kidney Injury: BUN is 29 and Cr 0.71. This is likely due to lasix as well as dehydration. Will encourage oral rehydration for now and follow daily renal function with daily BMPs. -Insulin-dependent diabetes mellitus/Hyperglycemia: Fasting sugars are high in the high 200s and 300s. Anion gap is not high and is 3 (low). Bicarb is still high at 44. We'll continue on sliding scale insulin Humalog subcutaneous daily at bedtime and before meals and continue Levemir 20 units BID. We'll continue aspirin 81 mg by mouth daily, atorvastatin 20 mg by mouth daily. For hypoglycemia, have D50W 50% 25 mL IV when necessary, glucagon 1 mg subcutaneous when necessary, and glucose 16 grams PRN. Continue carbohydrate consistent diet. -Heavy tobacco smoker: Had a long discussion regarding tobacco cessation. Continue nicotine patch. -Continue home medications. DNR/DNI as per MOLST form DVT ppx: Lovenox 40 mg subcutaneous daily. Immunizations as per protocol. My preceptor for this patient encounter was Dr. Hardeep Julio, and was physically present in the building during the encounter and was fully available. As needed , all aspects of the patient interview, examination, medical decision making process, and medical care plan development were reviewed and approved by the preceptor. Preceptor is aware and concurs with the plan as stated in the body of this note and will attest to such by his/her cosignature. VS,Fishbone, I+O VS, Fishbone, I+O Laboratory Tests 08/25/16 07:54 Calcium Level 8.7 L, Red Blood Count 4.98, Mean Corpuscular Volume 100.2 H, Mean Corpuscular Hemoglobin 31.9, Mean Corpuscular Hemoglobin Concent 31.9 L, Red Cell Distribution Width 13.4 Vital Signs Date Time Temp Pulse Resp B/P Pulse Ox O2 Delivery O2 Flow Rate FiO2 08/25/16 22:00 97.6 98 20 142/84 95 Nasal Cannula 3.0 I&O- Last 24 Hours up to 6 AM 08/25/16 06:00 Intake Total 1960 ml Output Total 1425 ml Balance 535 ml MARISOL TURNER-1 Aug 25, 2016 23:30 Balance 535 ml MARISOL TURNER-1 Aug 25, 2016 23:30
[2016-08-26] MEDS: SLF 3 ML SYR IV SCH (05:03)
[2016-08-26 06:00] VITALS: BP 125/79
[2016-08-26 07:22] LABS: MEAN CORPUSCULAR HEMOGLOBIN 30.8 pg (27.0-33.0); MEAN CORPUSCULAR HGB CONC 31.1 g/dl (32.0-36.5); MEAN CORPUSCULAR VOLUME 99.1 fl (80.0-96.0); RED CELL DISTRIBUTION WIDTH 13.4 % (11.5-14.5); WHITE BLOOD COUNT 7.8 K/mm3 (4.0-10.0)
[2016-08-26 08:03] LABS: ANION GAP 3 MEQ/L (8-16); BLOOD UREA NITROGEN 29 MG/DL (7-18); CALCIUM LEVEL 8.9 MG/DL (8.8-10.2); CARBON DIOXIDE LEVEL 44 MEQ/L (21-32); CHLORIDE LEVEL 96 MEQ/L (98-107); CREATININE FOR GFR 0.76 MG/DL (0.55-1.02); GLOMERULAR FILTRATION RATE > 60.0 (>45); GLUCOSE, FASTING 78 MG/DL (80-110); MAGNESIUM LEVEL 1.9 MG/DL (1.8-2.4); POTASSIUM SERUM 3.5 MEQ/L (3.5-5.1); SODIUM LEVEL 143 MEQ/L (136-145)
[2016-08-26] MEDS: HumaLOG INSULIN (NovoLOG) PER UNIT SC SCH (08:19)
[2016-08-26] MEDS ORDERED: predniSONE 20 MG TAB PO SCH (09:00)
[2016-08-26] MEDS: ATORVASTATIN 20 MG TAB PO SCH (09:03)
[2016-08-26] MEDS: ASPIRIN 81 MG ENTERIC TAB PO SCH (09:03)
[2016-08-26] MEDS: OMEGA-3 1050MG CAPSULE PO SCH (09:04)
[2016-08-26] MEDS: DOXYCYCLINE HYCLATE 100 MG TAB PO SCH (09:04)
[2016-08-26] MEDS: FUROSEMIDE 40 MG TAB PO SCH (09:04)
[2016-08-26] MEDS: NICOTINE 21MG/24HR 1 EA TRANSDERMAL TD SCH (09:05)
[2016-08-26] MEDS: ENOXAPARIN 40 MG/0.4 ML SYRINGE (J1650) SC SCH (09:05)
[2016-08-26] MEDS: LEVEMIR (INSULIN DETEMIR) 1 UNITS/0.01ML SC SCH (09:05)
[2016-08-26] MEDS: IPRATROPIUM 0.5MG/ALBUTEROL 2.5MG INH SOL UD 3ML (DUONEB)(J7620) NEB SCH (09:17)
[2016-08-26] MEDS ORDERED: PRED10PA2 PO (10:51)
[2016-08-26] MEDS ORDERED: DOXY10CA PO (10:51)
[2016-08-26] MEDS ORDERED: ADV250INH INH (10:51)
[2016-08-26] MEDS ORDERED: NICO21PAT TD (10:51)
[2016-08-26] MEDS ORDERED: DOXY100T16 PO (15:53)
[2016-08-26] MEDS ORDERED: BREO1INH INH (15:53)
--- NOTE | 2016-08-26 20:01 | DS.PDOC ---
Discharge Summary General Date of Admission Aug 21, 2016 at 19:46 Date of Discharge Aug 26, 2016 at 11:59 Primary Care Physician: NIKA NEGRON MD [facility] Attending Physician: GAGANDEEP HANKINS MD Discharge Summary Consults: None Discharge diagnosis: Acute on Chronic Hypoxic Respiratory Failure with Chronic Hypercapnic Respiratory Failure Acute on Chronic COPD exacerbation Secondary diagnosis: Acute Kidney Injury IDDM/Hyperglycemia Lower Extremity Edema Echocardiogram findings consistent with Cor Pulmonale--recommendation for ruling out PETE History of pneumonia many years ago Diverticulosis Sigmoid colon: Polyps status post near polypectomy with adenomatous polyps/ tubular adenomas on pathology Umbilical hernia Wears eyeglasses for reading Heavy tobacco smoker Hospital course: 60 year old female with past medical history of COPD, insulin- dependent diabetes mellitus, history of pneumonia many years ago, diverticulosis , sigmoid colon polyps status post near polypectomy with a path report stating: adenomatous polyps/tubular adenomas, heavy tobacco smoking is presenting today for a greater than 1 week history of progressively worsening shortness of breath which was the worst last night and today. Daughter at bedside states that patient had colonoscopy the week of August 14 at which time after the procedure, her oxygen level was not able to go above 78%, she was put on 4 L of oxygen which brought her O2 sat up to the low 90s. When taken off the oxygen, the O2 sat went back down to 82%. She was then referred to her PCP Dr. Negron to get oxygen. On August 13, she went to Dr. Negron realized that the patient was retaining fluid. He referred for a chest x-ray and echocardiogram. Chest x- ray was done at [facility] and the family had found out this week that there were fluid in the patient's lungs. Dr. Negron started the patient on water pills and doubled up the pills this week because the patient was still having symptoms of shortness of breath. He was going to give night oxygen starting tonight, but the patient had gotten severe shortness of breath last night could not sleep and could not take deep breaths. She was then brought to the emergency department around 3 PM and her oxygen saturation was 69% as per daughter. Upon review of systems, the patient reports ankle swelling, retaining fluid, dry cough, and daytime sleepiness as per daughter. Daughter states that patient does fall asleep in the middle of a conversation. Patient denies fevers , chills, chest pain, dizziness, sore throat, runny nose, phlegm production, abdominal pain, nausea, vomiting, diarrhea, constipation, rashes or lesions. When the patient came to the ED, her vital signs were significant for a tachycardia with a pulse of 106, tachypnea with respiratory failure 4, a blood pressure was elevated at 167/80, and a pulse ox which was 82% on room air. In the ED, an ABG was done which showed a pH of 7.324/PCO2 65.5/PaO2 of 71.5 which is consistent with primary disorder of respiratory acidosis with metabolic alkalosis. Labs were significant for a bicarbonate of 39, a glucose of 369, a BNP of 424, a negative troponin of 0.03, CK-MB of 17, a TSH of 0.589, a lactic acid of 1.6, a neutrophil percent of 70.9, a lymphocyte percent of 19.5, a monocyte percent of 5.8, and a lymphocyte number of 1.1. EKG was done today that showed sinus rhythm with a short ID interval, normal axis, right ventricular hypertrophy and ST-T change with a ventricular rate of 98 bpm, ID interval 110 ms, QRS duration 78 ms, and a QTc interval 409 ms. Previous EKG done on 03/12/2009 had shown sinus tachycardia with a ventricular rate of 102. In addition, a CT and of the chest with IV contrast was done which showed no evidence of PE, no active cardiopulmonary disease, stable mediastinal and hilar lymph nodes. A portable chest x-ray that showed no evidence of pulmonary edema, pleural effusion, cephalization of pulmonary vasculature, fullness in the azygous vein venous region, no acute infiltrate, and questionable CHF. In the ED, the patient was administered 3 doses of DuoNeb 0.5 mg/2.5 mg every 20 minutes when necessary shortness of breath, Solu-Medrol 125 mg IV once, and 4 L of oxygen via nasal cannula. After the patient was placed on 4 L of oxygen, her pulse oximetry readings range from 92-98%. Progress note on date of discharge: Subjective: 60 yo F was seen and examined at bedside. Denies fevers, chills, chest pain, dizziness, headache, nausea, vomiting, abdominal pain, diarrhea, constipation. Denies any significant leg swelling. Admits to SOB with exertion. Is truly wanting to go home now. Objective: Vitals: T: 97.8, BP: 125/79, RR: 19, P:92, O2 Saturation: 96% on 3 L nasal cannula. General: Cooperative, obese elderly female lying in bed in no acute distress, AAO x 3. HEENT: Head: normocephalic, atraumatic. Eyes: sclera are nonicteric. Nose: No external lesions Neck: No thyromegaly. Respiratory: Minimal but audible end expiratory wheezes in all lung hinds bilaterally. No rales or rhonchi appreciated. No accessory muscle usage noted. Cardiovascular: regular rate and rhythm, with no murmurs, rubs or gallops. Abdomen: soft, nontender, nondistended, no hepatosplenomegaly appreciated. Bowel sounds present. Extremities: very mild edema in lower extremities bilaterally. Neurological: No focal neurologic deficits appreciated bilaterally. Musculoskeletal: Normal range of motion. Lymphatics: No cervical lymphadenopathy bilaterally. Integumentary: No rashes or lesions appreciated. Vascular: +2 left radial pulse, +2 dorsalis pedis pulses bilaterally. Labs: Please see below. Assessment: Blood cultures: NGTD x 72 hours. RADIOLOGY: No new imaging today. ASSESSMENT: 60-year-old female with a past medical history significant for COPD, heavy tobacco smoking, history of pneumonia many years ago, [id number] diabetes mellitus, presents for acute on chronic hypoxic respiratory failure with chronic hypercapnic respiratory failure/acute on chronic COPD exacerbation. She also presents with lower extremity edema. PLAN: -Acute on Chronic Hypoxic Respiratory Failure with Chronic Hypercapnic Respiratory Failure/Acute on Chronic COPD exacerbation: Suspect additionally obstructive sleep apnea that patient should definitely have evaluation for as outpatient as she reports PND. Also have some suspicion for R heart failure as patient reports SOB with exertion as well as orthopnea and has edema in lower extremities. Echocardiogram showed findings consistent with Cor Pulmonale and it was recommended for patient to have PETE ruled out. She has an appointment with Dr. Hurtado Pulmonology on November 16 at 1:30, however patient does not wish to quit smoking despite our counseling/recommendations which will make it difficult to get an early appointment at the Pulmonology office. Patient satting in 90s% on 3 L nasal cannula down from 4 L. Walk test on room air today showed O2 saturation drop to 82% Patient in need of full-time oxygen at this time. Have prescribed continous oxygen therapy for home. Continue DuoNeb 3 mL nebulizer routine 4 times a day. Continue Proventil neb 2.5 mg every 2 hours when necessary shortness of breath/wheezing. Will taper prednisone down from 40 mg BID to 40 mg PO qdaily. We will keep on oxygen via nasal cannula and titrate to 88-92%. Will do accapella and do aggressive pulmonary toilet. Patient with no evidence of fever, leukocytosis or cough with sputum production. Will continue doxycycline hyclate 100 mg PO BID to treat/prevent any potential for infection. Blood cx show NGTD x 72 hours. We'll follow up when available. Have placed patient on nicotine patch 21 mg per 24 hours 1 patch TD daily. -Lower Extremity Edema: Much improved from prior but not completely resolved. We 'll continue Lasix 40 mg IV qdaily. We'll monitor kidney function with BMPs daily and magnesium level daily. We'll replete electrolytes as necessary. Keep magnesium > 2 and potassium > 4. Monitor daily I's and O's and weights. -Acute Kidney Injury: BUN is 29 and Cr 0.71. This is likely due to lasix as well as dehydration. Will encourage oral rehydration for now and follow daily renal function with daily BMPs. -Insulin-dependent diabetes mellitus/Hyperglycemia: Fasting sugars are high in the high 200s and 300s. Anion gap is not high and is 3 (low). Bicarb is still high at 44. We'll continue on sliding scale insulin Humalog subcutaneous daily at bedtime and before meals and continue Levemir 20 units BID. We'll continue aspirin 81 mg by mouth daily, atorvastatin 20 mg by mouth daily. For hypoglycemia, have D50W 50% 25 mL IV when necessary, glucagon 1 mg subcutaneous when necessary, and glucose 16 grams PRN. Continue carbohydrate consistent diet. -Heavy tobacco smoker: Had a long discussion regarding tobacco cessation. Continue nicotine patch. -Continue home medications. DNR/DNI as per [facility]OLST form DVT ppx: Lovenox 40 mg subcutaneous daily. Immunizations as per protocol. Disposition: Follow-up: Activity: Diet: Medications on discharge: Cc: Time spent on discharge: Vital Signs/I&Os Vital Signs Date Time Temp Pulse Resp B/P Pulse Ox O2 Delivery O2 Flow Rate FiO2 08/26/16 09:04 Nasal Cannula 3.0 08/26/16 06:00 97.8 92 19 125/79 96 I&O- Last 24 Hours up to 6 AM 08/26/16 06:00 Intake Total 1730 ml Output Total 3350 ml Balance -1620 ml Laboratory Data Labs 24H Laboratory Tests 2 08/25/16 20:14: Bedside Glucose (Misc Panel) 400H 08/26/16 07:02: Anion Gap 3L, Blood Urea Nitrogen 29H, Creatinine 0.76, Sodium Level 143, Potassium Level 3.5#, Chloride Level 96L, Carbon Dioxide Level 44H, Calcium Level 8.9, Glomerular Filtration Rate > 60.0, Magnesium Level 1.9 08/26/16 09:02: Bedside Glucose (Misc Panel) 173H CBC/BMP Laboratory Tests 08/26/16 07:02 Calcium Level 8.9, Red Blood Count 5.35, Mean Corpuscular Volume 99.1 H, Mean Corpuscular Hemoglobin 30.8, Mean Corpuscular Hemoglobin Concent 31.1 L, Red Cell Distribution Width 13.4 FSBS Laboratory Tests Test 08/25/16 20:14 08/26/16 09:02 Range/Units Bedside Glucose (Misc Panel) 400 173 80-115 MG/DL Microbiology Microbiology 08/21/16 Blood Culture - Final, Complete NO GROWTH AFTER 5 DAYS 08/21/16 Blood Culture - Final, Complete NO GROWTH AFTER 5 DAYS Discharge Medications Scheduled Albuterol/Ipratropium (Combivent Respimat 20-100 Mcg/Act) 1 Aer Aer 1 PUFF INH QID (Reported) Aspirin (Aspirin 81) 81 Mg Tab 81 MG PO DAILY (Reported) Atorvastatin Calcium (Atorvastatin Calcium) 20 Mg Tab 20 MG PO DAILY (Reported ) Doxycycline Monohydrate (Doxycycline Monohydrate) 100 Mg Tab 100 MG PO BID Fish Oil (Fish Oil 1000 mg) 1 Cap Cap 1 CAP PO BID (Reported) Fluticasone/Vilanterol (Breo Ellipta 100-25 Mcg/INH) 1 Inh Inh 1 PUFF INH DAILY Furosemide (Lasix) 40 Mg Tab 40 MG PO DAILY (Reported) Glipizide (Glipizide) 5 Mg Tab 5 MG PO BID (Reported) Lisinopril (Lisinopril) 10 Mg Tab 10 MG PO DAILY (Reported) Metformin Hydrochloride (Metformin HCl) 1,000 Mg Tab 1,000 MG PO BID (Reported ) Nicotine (Nicotine Transdermal Syst) 21 Mg/24 Hr Dis 1 PATCH TD DAILY Prednisone (Prednisone) 10 Mg Get 10 MG PO DAILY Saxagliptin Hydrochloride (Onglyza) 5 Mg Tab 5 MG PO DAILY (Reported) Allergies Coded Allergies: No Known Drug Allergy (Verified Allergy, Unknown, 09/13/12) MARISOL TURNER OGME-1 Aug 26, 2016 20:01
== END 2016-08-26 11:59 | disposition home or self-care (01) | DRG 133 ==
LOC: M ED 16:49 → M ED INP 19:46 → M PCU 22:18 → M MSPAV 08-24 14:54
PROVIDERS: ADMIT Internal Medicine; ATTEND Internal Medicine
DX: J96.21 Acute and chronic respiratory failure with hypoxia (principal); N17.9 Acute kidney failure, unspecified; I27.81 Cor pulmonale (chronic); E11.65 Type 2 diabetes mellitus with hyperglycemia; J44.1 Chronic obstructive pulmonary disease with (acute) exacerbation; F17.210 Nicotine dependence, cigarettes, uncomplicated; Z66 Do not resuscitate; G47.33 Obstructive sleep apnea (adult) (pediatric); K42.9 Umbilical hernia without obstruction or gangrene; R60.0 Localized edema; K57.90 Diverticulosis of intestine, part unspecified, without perforation or abscess without bleeding; Z79.82 Long term (current) use of aspirin; Z79.52 Long term (current) use of systemic steroids; Z97.3 Presence of spectacles and contact lenses; Z79.84 Long term (current) use of oral hypoglycemic drugs; Z98.51 Tubal ligation status; Z83.3 Family history of diabetes mellitus; Z82.49 Family history of ischemic heart disease and other diseases of the circulatory system; Z80.0 Family history of malignant neoplasm of digestive organs; J96.12 Chronic respiratory failure with hypercapnia

== ENCOUNTER → 2016-09-16 | Outpatient (CLI) | payer OTHER ==
[~2016-09-16] MED LIST changes: +ADV250INH INH; +ANORO; +BREO1INH INH; +COMBAER6 INH; +DOXY100T16 PO; +DOXY10CA PO; +GLIP5TAB8 PO; +LASI40TA PO; +LISI10TA4 PO; +NICO21PAT TD; +ONGL1TAB9 PO; +PRED10PA2 PO
== END ==
LOC: M SLEEP HO 09:52
PROVIDERS: ATTEND Internal Medicine Pulmonary Disease
DX: R40.0 Somnolence (principal)

== ENCOUNTER 2016-09-29 18:05 | Emergency (ER) | payer OTHER ==
[~2016-09-29] VITALS: Ht 162.6 cm; Wt 84.4 kg
[2016-09-29 18:51] VITALS: BP 145/69
[2016-09-29] MEDS ORDERED: FLUCONAZOLE 50MG TABLET PO ONE (20:00)
== END 2016-09-29 19:27 | disposition home or self-care (01) ==
LOC: M ED 19:01
DX: B37.3 Candidiasis of vulva and vagina (principal); E78.5 Hyperlipidemia, unspecified; K57.90 Diverticulosis of intestine, part unspecified, without perforation or abscess without bleeding; Z87.891 Personal history of nicotine dependence; Z79.2 Long term (current) use of antibiotics; Z79.899 Other long term (current) drug therapy; Z79.82 Long term (current) use of aspirin; Z79.84 Long term (current) use of oral hypoglycemic drugs

== ENCOUNTER → 2016-10-20 | Outpatient (CLI) | payer OTHER ==
--- NOTE | 2016-10-23 10:29 | SLEEPCENT ---
DATE OF PROCEDURE: 10/20/2016 ORDERED BY: Dr. Hurtado Nocturnal polysomnography was performed for the titration of pressure therapy in this patient with a clinical diagnosis of obstructive sleep apnea syndrome, respiratory event index of 38.5 on home testing. For testing, the patient was fit with a ResMed Quattro full face mask of small size. 4 cm of water pressure were applied to the circuit and the lights were extinguished. 7 hours and 34 minutes of data were reviewed. There were 431 minutes of sleep identified. Sleep latency was normal at 11 minutes. Rapid eye movement (REM) latency was mildly delayed at 103 minutes. Sleep architecture was good with prolonged REM late in the study suggesting REM rebound. Overall sleep efficiency 96.3%. EKG a sinus rhythm with an average heart rate of 76 beats per minute. EEG showed normal waveforms for awake and sleep. Respiratory events were fully palliated with CPAP at pressure of 13. Hypoventilatory oxygen desaturation seen early in the study prompted the addition of supplemental oxygen and optimal sleep was seen on a CPAP pressure of 13 with 3 liters of oxygen bled through the system. Significant limb activity was also noted during the study but arousals from the limb events were few. IMPRESSION: Obstructive sleep apnea syndrome (G47.33). RECOMMENDATION: Nightly use of pressure therapy 13 cm of water with 3 liters of oxygen bled through the system.
== END ==
LOC: M SLEEP 19:51
PROVIDERS: ATTEND Family Medicine
DX: G47.33 Obstructive sleep apnea (adult) (pediatric) (principal)

== ENCOUNTER → 2016-11-23 | Outpatient (CLI) | payer OTHER ==
[2016-11-23 17:07] LABS: ANION GAP 4 MEQ/L (8-16); BLOOD UREA NITROGEN 13 MG/DL (7-18); CARBON DIOXIDE LEVEL 39 MEQ/L (21-32); CHLORIDE LEVEL 95 MEQ/L (98-107); CREATININE FOR GFR 0.83 MG/DL (0.55-1.02); GLOMERULAR FILTRATION RATE > 60.0 (>45); GLUCOSE, FASTING 334 MG/DL (80-110); POTASSIUM SERUM 4.2 MEQ/L (3.5-5.1); SODIUM LEVEL 138 MEQ/L (136-145)
== END ==
LOC: M WUC 15:13
PROVIDERS: ATTEND Family Medicine
DX: E11.9 Type 2 diabetes mellitus without complications (principal); I27.81 Cor pulmonale (chronic)

== ENCOUNTER 2017-05-21 14:26 | Emergency (ER) | payer OTHER ==
[~2017-05-21] VITALS: Ht 170.2 cm; Wt 90.0 kg
[~2017-05-21 14:26] MED LIST changes: -CIPR-249 PO; -CIPR500T3 PO; -FLAG500T PO; -GLIP10TA6 PO; -METR1TAB66 PO; -OXYC1TAB23 PO; -PERC5TAB12 PO; -oxygen
[2017-05-21] MEDS ORDERED: oxygen (14:39)
[2017-05-21 16:31] LABS: BASO # 0.1 10^3/uL (0.0-0.2); BASO % 0.3 % (0.0-1.0); EOS # 0.1 10^3/uL (0.0-0.50); EOS % 0.8 % (0.0-3.0); IMMATURE GRANULOCYTE % 0.5 % (0-0); LYMPH # 2.7 10^3/uL (1.5-4.5); LYMPH % 15.9 % (24.0-44.0); MEAN CORPUSCULAR HEMOGLOBIN 32.8 pg (27.0-33.0); MEAN CORPUSCULAR HGB CONC 34.5 g/dl (32.0-36.5); MEAN CORPUSCULAR VOLUME 95.1 fl (80.0-96.0); MONO # 0.8 10^3/uL (0.0-0.8); MONO % 4.9 % (0.0-5.0); NEUTROPHILS # 13.3 10^3/uL (1.8-7.7); NEUTROPHILS % 77.6 % (36.0-66.0); PLATELET COUNT, AUTOMATED 264 10^3/uL (150-450); RED CELL DISTRIBUTION WIDTH 11.8 % (11.5-14.5); WHITE BLOOD COUNT 17.1 10^3/uL (4.0-10.0)
[2017-05-21 16:48] LABS: ALBUMIN 4.1 GM/DL (3.2-5.2); ALBUMIN/GLOBULIN RATIO 1.11 (1.00-1.93); ALKALINE PHOSPHATASE 96 U/L (45-117); ALT/SGPT 18 U/L (12-78); ANION GAP 7 MEQ/L (8-16); AST/SGOT 4 U/L (7-37); BLOOD UREA NITROGEN 14 MG/DL (7-18); CALCIUM LEVEL 9.2 MG/DL (8.8-10.2); CARBON DIOXIDE LEVEL 34 MEQ/L (21-32); CHLORIDE LEVEL 95 MEQ/L (98-107); CREATININE FOR GFR 0.88 MG/DL (0.55-1.02); GLOMERULAR FILTRATION RATE > 60.0 (>45); GLUCOSE, FASTING 180 MG/DL (80-110); POTASSIUM SERUM 3.7 MEQ/L (3.5-5.1); SODIUM LEVEL 136 MEQ/L (136-145); TOTAL PROTEIN 7.8 GM/DL (6.4-8.2)
[2017-05-21 16:53] LABS: MUCUS, URINE RFX SMALL (NEGATIVE); SPECIFIC GRAVITY UR AUTO RFX 1.016 (1.002-1.035); SQUAM EPITHELIAL CELL UR AURFX 0 /HPF (0-6)
[2017-05-21] MEDS ORDERED: ISOVUE-370 76% 100ML VIAL (Q9967) As Ordered ONE (16:58)
--- NOTE | 2017-05-21 17:39 | REP ---
CHEST, TWO VIEWS: There is no evidence of acute infiltrate. No pleural effusion is seen. The heart is normal in size. The mediastinal silhouette is unremarkable. The visualized osseous structures are intact. IMPRESSION: No acute pulmonary disease. Signed by Amari Kim MD 05/24/2017 05:52 P
--- NOTE | 2017-05-21 17:51 | REP ---
CT abdomen pelvis with IV contrast, without bowel contrast: There are no comparisons. There are numerous diverticula in the descending colon and sigmoid colon. There is pericolonic phlegmon at the splenic flexure of the colon compatible with acute diverticulitis. There is no focal fluid collection to suggest abscess. There is no pneumoperitoneum or ascites. There is no hydronephrosis. No renal calculi. No renal cysts or masses. The visualized lung hinds are unremarkable. The liver, gallbladder, pancreas, spleen, adrenals, aorta, bowel and mesentery are otherwise unremarkable. Pelvis: The uterus, adnexa and bladder are unremarkable. There is no adenopathy or ascites. Impression: Diverticulitis at the splenic flexure of the colon without pericolonic abscess. Otherwise, negative CT of the abdomen and pelvis. Signed by Amari Mario MD 05/21/2017 05:42 P
[2017-05-21] MEDS ORDERED: CIPR-249 PO (18:04)
[2017-05-21] MEDS ORDERED: FLAG500T PO (18:05)
[2017-05-21] MEDS ORDERED: PERC5TAB12 PO (18:06)
[2017-05-21 18:15] VITALS: BP 100/64
[2017-05-22] MEDS ORDERED: METR1TAB66 PO (09:51)
[2017-05-22] MEDS ORDERED: GLIP10TA6 PO (09:51)
[2017-05-22] MEDS ORDERED: CIPR500T3 PO (09:51)
[2017-05-22] MEDS ORDERED: OXYC1TAB23 PO (09:51)
== END 2017-05-21 18:15 | disposition home or self-care (01) ==
LOC: M ED 14:26
DX: K57.32 Diverticulitis of large intestine without perforation or abscess without bleeding (principal); E11.9 Type 2 diabetes mellitus without complications; I10 Essential (primary) hypertension; J44.9 Chronic obstructive pulmonary disease, unspecified; Z79.84 Long term (current) use of oral hypoglycemic drugs; Z79.899 Other long term (current) drug therapy; Z79.82 Long term (current) use of aspirin; Z98.890 Other specified postprocedural states; Z87.891 Personal history of nicotine dependence
CPT/HCPCS: 36415; 71020; 74177; 80053; 81001; 83690; 85025; 99284; Q9967

== ENCOUNTER → 2017-05-21 | Outpatient (REF) | payer OTHER ==
[~2017-05-21] MED LIST changes: +CIPR-249 PO; +CIPR500T3 PO; +DOXY100T2 PO; -DOXY10CA PO; +FLAG500T PO; +GLIP10TA6 PO; +GLIP1TAB49 PO; -GLIP5TAB15 PO; -METF1000 PO; +METF10004 PO; +METR1TAB66 PO; +OXYC1TAB23 PO; +PERC5TAB12 PO; +oxygen
== END ==
LOC: M LAB REF 16:38
PROVIDERS: ATTEND Physician Assistant
DX: R10.32 Left lower quadrant pain (principal)

== ENCOUNTER → 2017-05-21 | Outpatient (CLI) | payer OTHER ==
--- NOTE | 2017-05-21 15:02 | REP ---
Supine abdomen two AP views: There are no comparisons. The bowel gas pattern is normal. There are small nonspecific calcifications inferiorly in the pelvis bilaterally. These could be ureteral or phleboliths. There are calcific densities superimposed over the abdomen on the left, nonspecific: clothing artifact, ingested material in bowel loops versus renal calculi. Skeletal structures and soft tissues otherwise are unremarkable. Signed by Amari Mario MD 05/21/2017 02:54 P
[2017-05-21 18:42] LABS: BASO % 0.2 % (0.0-1.0); EOS # 0.2 10^3/uL (0.0-0.50); EOS % 1.5 % (0.0-3.0); IMMATURE GRANULOCYTE % 0.3 % (0-0); LYMPH # 2.4 10^3/uL (1.5-4.5); LYMPH % 14.9 % (24.0-44.0); MEAN CORPUSCULAR HEMOGLOBIN 32.9 pg (27.0-33.0); MEAN CORPUSCULAR HGB CONC 34.1 g/dl (32.0-36.5); MEAN CORPUSCULAR VOLUME 96.6 fl (80.0-96.0); MONO % 6.2 % (0.0-5.0); NEUTROPHILS # 12.2 10^3/uL (1.8-7.7); NEUTROPHILS % 76.9 % (36.0-66.0); PLATELET COUNT, AUTOMATED 274 10^3/uL (150-450); WHITE BLOOD COUNT 15.9 10^3/uL (4.0-10.0)
[2017-05-21 19:01] LABS: ALBUMIN 3.9 GM/DL (3.2-5.2); ALBUMIN/GLOBULIN RATIO 1.18 (1.00-1.93); ALKALINE PHOSPHATASE 91 U/L (45-117); ALT/SGPT 19 U/L (12-78); AMYLASE 24 U/L (25-115); ANION GAP 8 MEQ/L (8-16); AST/SGOT 6 U/L (7-37); BILIRUBIN,TOTAL 0.8 MG/DL (0.2-1.0); BLOOD UREA NITROGEN 13 MG/DL (7-18); CALCIUM LEVEL 8.8 MG/DL (8.8-10.2); CARBON DIOXIDE LEVEL 33 MEQ/L (21-32); CHLORIDE LEVEL 96 MEQ/L (98-107); CREATININE FOR GFR 0.88 MG/DL (0.55-1.02); GLOMERULAR FILTRATION RATE > 60.0 (>45); GLUCOSE, FASTING 206 MG/DL (80-110); POTASSIUM SERUM 3.7 MEQ/L (3.5-5.1); SODIUM LEVEL 137 MEQ/L (136-145); TOTAL PROTEIN 7.2 GM/DL (6.4-8.2)
== END ==
LOC: M WUC 13:32
PROVIDERS: ATTEND Physician Assistant
DX: R10.12 Left upper quadrant pain (principal)

== ENCOUNTER 2017-05-22 08:26 | Inpatient (IN) | payer OTHER ==
[~2017-05-22] VITALS: Ht 170.2 cm; Wt 90.0 kg
[~2017-05-22 08:26] MED LIST changes: +CIPR-249 PO; +FLAG500T PO; +PERC5TAB12 PO; +oxygen
[2017-05-22] MEDS ORDERED: ALBUTEROL SULFATE 2.5 MG/0.5 ML INH NEB SOLN INH ONE (09:00)
[2017-05-22] MEDS ORDERED: methylPREDNISolone INJ 125 MG/2 ML VIAL (J2930) IV ONE (09:00)
[2017-05-22] MEDS ORDERED: metroNIDAZOLE 500 MG in APPROPRIATE DILUENT 1 EA IV ONE (09:00)
[2017-05-22] MEDS ORDERED: IPRATROPIUM 0.5MG/ALBUTEROL 2.5MG INH SOL UD 3ML (DUONEB)(J7620) NEB ONE (09:00)
[2017-05-22] MEDS ORDERED: NS 1,000 ML IV ONE (09:00)
[2017-05-22 09:22] LABS: BASO % 0.1 % (0.0-1.0); EOS # 0.2 10^3/uL (0.0-0.50); IMMATURE GRANULOCYTE % 0.4 % (0-0); LYMPH # 1.2 10^3/uL (1.5-4.5); LYMPH % 7.8 % (24.0-44.0); MEAN CORPUSCULAR HGB CONC 34.7 g/dl (32.0-36.5); MEAN CORPUSCULAR VOLUME 94.9 fl (80.0-96.0); MONO # 0.7 10^3/uL (0.0-0.8); MONO % 4.6 % (0.0-5.0); NEUTROPHILS # 13.3 10^3/uL (1.8-7.7); NEUTROPHILS % 86.1 % (36.0-66.0); PLATELET COUNT, AUTOMATED 234 10^3/uL (150-450); RED CELL DISTRIBUTION WIDTH 11.9 % (11.5-14.5); WHITE BLOOD COUNT 15.5 10^3/uL (4.0-10.0)
--- NOTE | 2017-05-22 09:25 | REP ---
PA and lateral chest: Comparison is 05/21/2017. The lung hinds are clear. The cardiac size is normal The jayjay, mediastinum, and bony thorax are unremarkable. Impression: Negative PA and lateral chest. There is no interval change. Signed by Amari Mario MD 05/22/2017 09:16 A
--- NOTE | 2017-05-22 09:28 | REP ---
CT of the abdomen pelvis without IV or bowel contrast: There is focal diverticulitis at the splenic flexure of the colon, unchanged from 05/21/2017. There is no pericolonic fluid collection to suggest abscess. There is no pneumoperitoneum. No ascites. There is no hydronephrosis. There are no renal, ureteral or bladder calculi. No perinephric stranding. The visualized lung hinds are unremarkable. The unenhanced hepatic parenchyma, gallbladder, pancreas, spleen, adrenals, kidneys, abdominal aorta, remainder of the bowel and mesentery are unremarkable. Pelvis: There is diverticulosis of the descending colon and sigmoid colon. There is focal diverticulitis at the splenic flexure. No ascites or adenopathy. Uterus and adnexa are unremarkable. Focal diverticulitis at the splenic flexure of the colon. No associated fluid collection to suggest abscess. Signed by Amari Mario MD 05/22/2017 09:20 A
[2017-05-22] MEDS ORDERED: ONDANSETRON 4MG/2ML VIAL (J2405) IV ONE (09:30)
[2017-05-22 09:33] LABS: INR 0.98
[2017-05-22 09:35] LABS: ABG BASE EXCESS 3.4 (-2.0-2.0); ABG PARTIAL PRESSURE O2 110.6 mmHg (75.0-100.0); ABG STANDARD HCO3 27.5 MEQ/L (22.0-26.0); ABG TOTAL CO2 31.7 MEQ/L (23.0-31.0); ABG pH (ARTERIAL) 7.355 UNITS (7.350-7.450)
[2017-05-22 09:51] LABS: ALBUMIN 3.4 GM/DL (3.2-5.2); ALBUMIN/GLOBULIN RATIO 0.81 (1.00-1.93); ALKALINE PHOSPHATASE 82 U/L (45-117); ALT/SGPT 15 U/L (12-78); ANION GAP 6 MEQ/L (8-16); AST/SGOT 6 U/L (7-37); BILIRUBIN,DIRECT 0.2 MG/DL (0.0-0.2); BILIRUBIN,TOTAL 0.8 MG/DL (0.2-1.0); BLOOD UREA NITROGEN 22 MG/DL (7-18); CALCIUM LEVEL 9.2 MG/DL (8.8-10.2); CARBON DIOXIDE LEVEL 35 MEQ/L (21-32); CHLORIDE LEVEL 93 MEQ/L (98-107); GLUCOSE, FASTING 324 MG/DL (80-110); POTASSIUM SERUM 3.9 MEQ/L (3.5-5.1); SODIUM LEVEL 134 MEQ/L (136-145); TOTAL PROTEIN 7.6 GM/DL (6.4-8.2)
[2017-05-22] MEDS ORDERED: GLIP10TA6 PO (09:51)
[2017-05-22] MEDS ORDERED: METR1TAB66 PO (09:51)
[2017-05-22] MEDS ORDERED: CIPR500T3 PO (09:51)
[2017-05-22] MEDS ORDERED: OXYC1TAB23 PO (09:51)
[2017-05-22 10:00] LABS: AMYLASE 22 U/L (25-115)
[2017-05-22] MEDS ORDERED: CIPROFLOXACIN 400 MG in APPROPRIATE DILUENT 1 EA IV ONE (10:00)
[2017-05-22] MEDS ORDERED: DEXTROSE 50% 50 ML SYRINGE IV PRN (12:00)
[2017-05-22] MEDS ORDERED: GLUCAGON FOR INJ 1 MG VIAL (J1610) SC PRN (12:00)
[2017-05-22] MEDS ORDERED: GLUCOSE 4 GM CHEW TABLET PO PRN (12:00)
[2017-05-22] MEDS ORDERED: IPRATROPIUM 0.5MG/ALBUTEROL 2.5MG INH SOL UD 3ML (DUONEB)(J7620) NEB PRN (12:15)
--- NOTE | 2017-05-22 12:40 | HPE ---
DATE OF ADMISSION: 05/22/2017 ATTENDING PHYSICIAN: Dr. Hardeep Julio PRIMARY CARE PHYSICIAN: Dr. Ace Brewster PRINCIPAL DIAGNOSIS: Diverticulitis failing outpatient therapy. HISTORY: Ashlyn Moyer is a 61-year-old patient of Dr. Brewster who was admitted to the hospitalist service with diverticulitis. She was in the emergency room yesterday for abdominal pain. CT of the abdomen and pelvis showed diverticulitis at the splenic flexure without abscess. The patient was discharged home on oral antibiotics, but she had increased pain, dizziness and lightheadedness so returned to the emergency room and is being admitted for intravenous therapy. She has a history of chronic obstructive pulmonary disease (COPD) and was hospitalized in 08/2016 for exacerbation of COPD. She is on chronic supplemental oxygen. She has type 2 diabetes, hyperlipidemia, hypertension. She is intermittently on steroids but not on these chronically. SOCIAL HISTORY: Smoker. ALLERGIES: None known. SURGICAL HISTORY: Tubal ligation and appendectomy with hernia repair in 1996. Colonoscopy 08/2016 with tubular adenomas/adenomatous colon polyps removed. FAMILY HISTORY: Multiple myeloma, heart disease, diabetes, and esophageal cancer all in the family. REVIEW OF SYSTEMS: No rectal bleeding, hematemesis, fever, chills, night sweats. Her shortness of breath is not beyond her baseline. MEDICATIONS: - Combivent inhaler two puffs four times a day - aspirin 81 mg daily - atorvastatin 20 mg daily - fish oil daily - furosemide 40 mg daily - glipizide 10 mg twice a day - Lisinopril 10 mg daily - metformin 1000 mg twice a day She was recently placed on oxycodone/acetaminophen every 6 hours for pain. - metronidazole 500 mg every 8 hours - Cipro 500 mg twice a day, which was ordered yesterday PHYSICAL EXAMINATION: 110/58, pulse 72, respiratory rate 18, 94% oxygen saturation. Afebrile, 98.6 degrees. GENERAL APPEARANCE: Lying in bed, resting comfortably. Wearing supplemental oxygen. HEENT: Unremarkable. LUNGS: Decreased breath sounds. A few wheezes. HEART: Regular rate and rhythm without murmur. ABDOMEN: Soft. Left lower quadrant, as well as left upper quadrant without guarding, rebound, or referred pain. EXTREMITIES: No clubbing, cyanosis or edema. Normal strength in the arms and legs. LABORATORY DATA: White count 15.5, hemoglobin 11.7, platelets 234. Sodium 154, potassium 3.9, BUN 22, creatinine 1.0, glucose 342. We did a blood gas. She had chronic retained CO2, pH is 7.35, PCO2 of 55, PO2 of 110. IMPRESSION: 1. Diverticulitis, failed outpatient therapy. Admitted to a medical bed. IV Cipro, IV Flagyl and IV fluids ordered. Advance diet as tolerated. 2. Chronic obstructive pulmonary disease (COPD), stable. Continue supplemental oxygen. Continue bronchodilator. 3. Diabetes. Hold oral medications. Fingerstick blood sugars with coverage until oral intake is assured. 4. Hyperlipidemia. Stop the fish oil. Continue the statin therapy. 5. Hypertension. Blood pressure is soft, 90 to 100 in the emergency room. Antihypertensives will be held. The importance of smoking cessation was reviewed with the patient. Apparently, she still smokes a few cigarettes a day.
[2017-05-22 13:45] VITALS: BP 106/57
[2017-05-22] MEDS: IPRATROPIUM 0.5MG/ALBUTEROL 2.5MG INH SOL UD 3ML (DUONEB)(J7620) NEB SCH ×2 (14:00→19:25)
[2017-05-22] MEDS: HumaLOG INSULIN (NovoLOG) PER UNIT SC SCH ×3 (15:12→20:43)
[2017-05-22 16:00] VITALS: BP 95/52
[2017-05-22] MEDS: KCL 20MEQ IN 0.45NS 1000ML 1,000 ML IV SCH ×2 (16:42→20:43)
[2017-05-22] MEDS: metroNIDAZOLE 500 MG in APPROPRIATE DILUENT 1 EA IV SCH (18:05)
--- NOTE | 2017-05-22 19:34 | ECGEPIP ---
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
[2017-05-22 20:00] VITALS: BP 116/55
[2017-05-22] MEDS: ATORVASTATIN 20 MG TAB PO SCH (20:42)
[2017-05-22] MEDS: PERCOCET 5MG/325MG TAB PO PRN (20:42)
[2017-05-22] MEDS: CIPROFLOXACIN 400 MG in APPROPRIATE DILUENT 1 EA IV SCH (23:17)
[2017-05-23] VITALS: BP 113/66
[2017-05-23] MEDS: IPRATROPIUM 0.5MG/ALBUTEROL 2.5MG INH SOL UD 3ML (DUONEB)(J7620) NEB SCH ×4 (01:45→20:25)
[2017-05-23] MEDS: metroNIDAZOLE 500 MG in APPROPRIATE DILUENT 1 EA IV SCH ×3 (02:38→17:39)
[2017-05-23 04:00] VITALS: BP 127/64
[2017-05-23 06:46] LABS: BASO % 0.1 % (0.0-1.0); IMMATURE GRANULOCYTE % 0.6 % (0-0); LYMPH # 0.8 10^3/uL (1.5-4.5); LYMPH % 6.2 % (24.0-44.0); MEAN CORPUSCULAR HEMOGLOBIN 32.7 pg (27.0-33.0); MEAN CORPUSCULAR HGB CONC 34.2 g/dl (32.0-36.5); MEAN CORPUSCULAR VOLUME 95.6 fl (80.0-96.0); MONO # 0.6 10^3/uL (0.0-0.8); MONO % 4.3 % (0.0-5.0); NEUTROPHILS # 11.5 10^3/uL (1.8-7.7); NEUTROPHILS % 88.8 % (36.0-66.0); PLATELET COUNT, AUTOMATED 211 10^3/uL (150-450); RED CELL DISTRIBUTION WIDTH 11.9 % (11.5-14.5)
[2017-05-23 07:06] LABS: ANION GAP 7 MEQ/L (8-16); BLOOD UREA NITROGEN 17 MG/DL (7-18); CALCIUM LEVEL 8.6 MG/DL (8.8-10.2); CARBON DIOXIDE LEVEL 29 MEQ/L (21-32); CHLORIDE LEVEL 101 MEQ/L (98-107); CREATININE FOR GFR 0.74 MG/DL (0.55-1.02); GLOMERULAR FILTRATION RATE > 60.0 (>45); GLUCOSE, FASTING 219 MG/DL (80-110); POTASSIUM SERUM 4.2 MEQ/L (3.5-5.1); SODIUM LEVEL 137 MEQ/L (136-145)
[2017-05-23] MEDS: KCL 20MEQ IN 0.45NS 1000ML 1,000 ML IV SCH ×2 (07:59→17:39)
[2017-05-23] MEDS: HumaLOG INSULIN (NovoLOG) PER UNIT SC SCH ×5 (07:59→20:52)
[2017-05-23 08:00] VITALS: BP 112/56
[2017-05-23] MEDS: ASPIRIN 81 MG ENTERIC TAB PO SCH (09:08)
[2017-05-23] MEDS: CIPROFLOXACIN 400 MG in APPROPRIATE DILUENT 1 EA IV SCH ×2 (11:15→22:38)
--- NOTE | 2017-05-23 11:25 | IPNPDOC ---
Text Note Date of Service The patient was seen on 05/23/17. NOTE Subjective: Patient seen and examined at bedside. Still complains of some LLQ pain, although she states this has improved. Objective: GENERAL APPEARANCE: NAD, lying comfortably in bed HEENT: NC/AT, EOMI, PERRL, nasal cannula in place LUNGS: CTA B/L HEART: RRR, +S1S2 ABDOMEN: Soft, LLQ tenderness, +BS EXTREMITIES: No clubbing, cyanosis or edema. IMPRESSION: # Diverticulitis -failed outpatient therapy with oral abx - continue IV Cipro/Flagyl/fluids - CLD for now # COPD - stable - Continue supplemental oxygen - Continue bronchodilator - active smoker # Diabetes. - ISS # Hyperlipidemia - Continue the statin therapy. # HTN - home antihypertensives on hold - continue to follow clinically #nicotine abuse - counselling provided at bedside #DVT prophylaxis VS,Fishbone, I+O VS, Fishbone, I+O Laboratory Tests 05/23/17 06:20 Red Blood Count 3.15 L, Mean Corpuscular Volume 95.6, Mean Corpuscular Hemoglobin 32.7, Mean Corpuscular Hemoglobin Concent 34.2, Red Cell Distribution Width 11.9, Neutrophils (%) (Auto) 88.8 H, Lymphocytes (%) (Auto) 6.2 L, Monocytes (%) (Auto) 4.3, Eosinophils (%) (Auto) 0.0, Basophils (%) (Auto ) 0.1, Neutrophils # (Auto) 11.5 H, Lymphocytes # (Auto) 0.8 L, Monocytes # ( Auto) 0.6, Eosinophils # (Auto) 0.0, Basophils # (Auto) 0.0, Calcium Level 8.6 L Vital Signs Date Time Temp Pulse Resp B/P (MAP) Pulse Ox O2 Delivery O2 Flow Rate FiO2 05/23/17 08:00 Nasal Cannula 3.0 05/23/17 08:00 97.5 70 18 112/56 (56) 97 I&O- Last 24 Hours up to 6 AM 05/24/17 06:00 Intake Total 555 ml Output Total 800 ml Balance -245 ml GAGANDEEP HANKINS MD May 23, 2017 11:25
[2017-05-23 12:00] VITALS: BP 116/56
[2017-05-23 16:00] VITALS: BP 127/60
[2017-05-23 20:00] VITALS: BP 124/59
[2017-05-23] MEDS: ATORVASTATIN 20 MG TAB PO SCH (20:37)
[2017-05-23] MEDS: PERCOCET 5MG/325MG TAB PO PRN (20:38)
[2017-05-24] VITALS: BP 115/65
[2017-05-24] MEDS: metroNIDAZOLE 500 MG in APPROPRIATE DILUENT 1 EA IV SCH ×3 (01:19→18:02)
[2017-05-24 04:00] VITALS: BP 111/72
[2017-05-24] MEDS: KCL 20MEQ IN 0.45NS 1000ML 1,000 ML IV SCH (04:00)
[2017-05-24 06:55] LABS: BASO % 0.2 % (0.0-1.0); EOS # 0.1 10^3/uL (0.0-0.50); EOS % 0.7 % (0.0-3.0); IMMATURE GRANULOCYTE % 0.4 % (0-0); LYMPH # 2.9 10^3/uL (1.5-4.5); LYMPH % 34.7 % (24.0-44.0); MEAN CORPUSCULAR HEMOGLOBIN 33.2 pg (27.0-33.0); MEAN CORPUSCULAR HGB CONC 33.9 g/dl (32.0-36.5); MEAN CORPUSCULAR VOLUME 97.9 fl (80.0-96.0); MONO # 0.5 10^3/uL (0.0-0.8); MONO % 5.7 % (0.0-5.0); NEUTROPHILS % 58.3 % (36.0-66.0); PLATELET COUNT, AUTOMATED 201 10^3/uL (150-450); RED CELL DISTRIBUTION WIDTH 12.2 % (11.5-14.5); WHITE BLOOD COUNT 8.5 10^3/uL (4.0-10.0)
[2017-05-24 07:20] LABS: ANION GAP 7 MEQ/L (8-16); BLOOD UREA NITROGEN 11 MG/DL (7-18); CARBON DIOXIDE LEVEL 30 MEQ/L (21-32); CHLORIDE LEVEL 104 MEQ/L (98-107); GLOMERULAR FILTRATION RATE > 60.0 (>45); GLUCOSE, FASTING 163 MG/DL (80-110); POTASSIUM SERUM 3.7 MEQ/L (3.5-5.1); SODIUM LEVEL 141 MEQ/L (136-145)
[2017-05-24] MEDS: IPRATROPIUM 0.5MG/ALBUTEROL 2.5MG INH SOL UD 3ML (DUONEB)(J7620) NEB SCH ×3 (07:38→19:44)
--- NOTE | 2017-05-24 07:38 | IPNPDOC ---
Text Note Date of Service The patient was seen on 05/24/17. NOTE Subjective: Patient seen and examined at bedside. States her pain is very minimal today, would like to advance her diet. Denies any other medical complaints. Objective: GENERAL APPEARANCE: NAD, lying comfortably in bed HEENT: NC/AT, EOMI, PERRL, nasal cannula in place LUNGS: CTA B/L HEART: RRR, +S1S2 ABDOMEN: Soft, NT, +BS EXTREMITIES: No clubbing, cyanosis or edema. IMPRESSION: # Diverticulitis -failed outpatient therapy with oral abx - continue IV Cipro/Flagyl dc IV fluids - advance to full liquids - if tolerated, can advance diet to 2 gram sodium/ carb consistent for dinner # COPD - stable - Continue supplemental oxygen - Continue bronchodilator - active smoker # Diabetes. - ISS # Hyperlipidemia - Continue the statin therapy. # HTN - home antihypertensives on hold - continue to follow clinically #nicotine abuse - counselling provided at bedside #DVT prophylaxis VS,Fishbone, I+O VS, Fishbone, I+O Laboratory Tests 05/24/17 06:29 Red Blood Count 2.89 L, Mean Corpuscular Volume 97.9 H, Mean Corpuscular Hemoglobin 33.2 H, Mean Corpuscular Hemoglobin Concent 33.9, Red Cell Distribution Width 12.2, Neutrophils (%) (Auto) 58.3, Lymphocytes (%) (Auto) 34.7, Monocytes (%) (Auto) 5.7 H, Eosinophils (%) (Auto) 0.7, Basophils (%) ( Auto) 0.2, Neutrophils # (Auto) 5.0, Lymphocytes # (Auto) 2.9, Monocytes # (Auto ) 0.5, Eosinophils # (Auto) 0.1, Basophils # (Auto) 0.0, Calcium Level 8.0 L Vital Signs Date Time Temp Pulse Resp B/P (MAP) Pulse Ox O2 Delivery O2 Flow Rate FiO2 05/24/17 04:00 97.5 84 16 111/72 (85) 96 NIPPV (BIPAP/CPAP) 05/24/17 04:00 3.0 I&O- Last 24 Hours up to 6 AM 05/25/17 05:59 Intake Total 200 ml Output Total 200 ml Balance 0 ml GAGANDEEP HANKINS MD May 24, 2017 07:37
[2017-05-24] MEDS: ASPIRIN 81 MG ENTERIC TAB PO SCH (08:19)
[2017-05-24] MEDS: HumaLOG INSULIN (NovoLOG) PER UNIT SC SCH ×4 (08:19→21:00)
[2017-05-24 08:20] VITALS: BP 136/63
[2017-05-24] MEDS: CIPROFLOXACIN 400 MG in APPROPRIATE DILUENT 1 EA IV SCH ×2 (11:24→23:52)
[2017-05-24 12:00] VITALS: BP 121/61
[2017-05-24 16:00] VITALS: BP 136/70
[2017-05-24 20:00] VITALS: BP 136/73
[2017-05-24] MEDS: ATORVASTATIN 20 MG TAB PO SCH (21:27)
[2017-05-25] VITALS: BP 124/70
--- NOTE | 2017-05-25 00:01 | DS.PDOC ---
Discharge Summary General Date of Admission May 22, 2017 at 12:00 Date of Discharge Anticipated for 05/25/17 Discharge Summary PROCEDURES PERFORMED DURING STAY: [None]. DISCHARGE DIAGNOSES: 1. Diverticulitis failing outpatient therapy 2. HTN. 3. DM 4. Dyslipidemia 5. COPD 6. Chronic hypoxic respiratory failure requiring supplemental oxygen. COMPLICATIONS/CHIEF COMPLAINT: Acute Diverticulitis. HISTORY OF PRESENT ILLNESS: 61 yo female presents for worsening abdominal pain. Seen by her PCP and failed treatment as outpatient for acute diverticulitis. HOSPITAL COURSE: Patient admitted for further evaluation and treatment. Started parenteral antimicrobial therapy with IV fluids and clear liquid diet. Patient' s symptoms improved, and diet was advanced as tolerated. Hospital stay otherwise unremarkable. Patient is anticipated for discharge 05/25/17. DISCHARGE MEDICATIONS: Please see below. ALLERGIES: Please see below. LABORATORY DATA: Please see below. IMAGING: PROGNOSIS: ACTIVITY: [As tolerated]. DIET: Low residue, 2 gram sodium carb consistent DISCHARGE PLAN: Discharge home DISCHARGE INSTRUCTIONS: 1. Follow up with PCP in 3-5 days. 2. Dietary restriction as instructed 3. Medications as directed DISCHARGE CONDITION: [Stable]. TIME SPENT ON DISCHARGE: Greater than 30 minutes. Vital Signs/I&Os Vital Signs Date Time Temp Pulse Resp B/P (MAP) Pulse Ox O2 Delivery O2 Flow Rate FiO2 05/24/17 20:00 97.9 80 20 136/73 (94) 97 Nasal Cannula 3.0 I&O- Last 24 Hours up to 6 AM 05/25/17 06:00 Intake Total 2700 ml Output Total 2650 ml Balance 50 ml Laboratory Data Labs 24H Laboratory Tests 2 05/24/17 06:29: Immature Granulocyte % (Auto) 0.4H, White Blood Count 8.5, Red Blood Count 2.89L , Hemoglobin 9.6L, Hematocrit 28.3L, Mean Corpuscular Volume 97.9H, Mean Corpuscular Hemoglobin 33.2H, Mean Corpuscular Hemoglobin Concent 33.9, Red Cell Distribution Width 12.2, Platelet Count 201, Neutrophils (%) (Auto) 58.3, Lymphocytes (%) (Auto) 34.7, Monocytes (%) (Auto) 5.7H, Eosinophils (%) (Auto) 0.7, Basophils (%) (Auto) 0.2, Neutrophils # (Auto) 5.0, Lymphocytes # (Auto) 2.9, Monocytes # (Auto) 0.5, Eosinophils # (Auto) 0.1, Basophils # (Auto) 0.0, Immature Granulocyte # (Auto) 0.0, Nucleated Red Blood Cells % (auto) 0.0, Anion Gap 7L, Glomerular Filtration Rate > 60.0, Blood Urea Nitrogen 11, Creatinine 0.70, Sodium Level 141, Potassium Level 3.7, Chloride Level 104, Carbon Dioxide Level 30, Calcium Level 8.0L 05/24/17 12:05: Bedside Glucose (Misc Panel) 271H 05/24/17 17:06: Bedside Glucose (Misc Panel) 233H 05/24/17 21:16: Bedside Glucose (Misc Panel) 206H CBC/BMP Laboratory Tests 05/24/17 06:29 Red Blood Count 2.89 L, Mean Corpuscular Volume 97.9 H, Mean Corpuscular Hemoglobin 33.2 H, Mean Corpuscular Hemoglobin Concent 33.9, Red Cell Distribution Width 12.2, Neutrophils (%) (Auto) 58.3, Lymphocytes (%) (Auto) 34.7, Monocytes (%) (Auto) 5.7 H, Eosinophils (%) (Auto) 0.7, Basophils (%) ( Auto) 0.2, Neutrophils # (Auto) 5.0, Lymphocytes # (Auto) 2.9, Monocytes # (Auto ) 0.5, Eosinophils # (Auto) 0.1, Basophils # (Auto) 0.0, Calcium Level 8.0 L FSBS Laboratory Tests Test 05/24/17 12:05 05/24/17 17:06 05/24/17 21:16 Range/Units Bedside Glucose (Misc Panel) 271 233 206 80-115 MG/DL Microbiology Microbiology 05/22/17 Blood Culture - Preliminary, Resulted No Growth after 48 hours. All Specime... 05/22/17 Blood Culture - Preliminary, Resulted No Growth after 48 hours. All Specime... Discharge Medications Scheduled Aspirin (Aspirin 81) 81 Mg Tab, 81 MG PO DAILY, (Reported) Atorvastatin Calcium (Atorvastatin Calcium) 20 Mg Tab, 20 MG PO DAILY, (Reported ) Ciprofloxacin HCl (Ciprofloxacin HCl) 500 Mg Tab, 500 MG PO BID, (Reported) 10 DAY SUPPLY FILLED 05/21 Fish Oil (Fish Oil 1000 mg) 1 Cap Cap, 1 CAP PO BID, (Reported) Furosemide (Lasix) 40 Mg Tab, 40 MG PO DAILY, (Reported) Glipizide (Glipizide) 10 Mg Tab, 10 MG PO BID, (Reported) Lisinopril (Lisinopril) 10 Mg Tab, 10 MG PO DAILY, (Reported) Metformin Hydrochloride (Metformin HCl) 1,000 Mg Tab, 1,000 MG PO BID, (Reported ) Metronidazole (Metronidazole) 500 Mg Tab, 500 MG PO Q8H, (Reported) 10 DAY SUPPLY FILLED 05/21 Scheduled PRN Albuterol/Ipratropium (Combivent Respimat 20-100 Mcg/Act) 1 Aer Aer, 1 PUFF INH QID PRN for SHORTNESS OF BREATH, (Reported) Oxycodone/Acetaminophen (Oxycodone/Acetaminophen 5-325 mg) 1 Tab Tab, 1 TAB PO Q6H PRN for PAIN, (Reported) Allergies Coded Allergies: No Known Drug Allergy (Verified Allergy, Unknown, 09/13/12) GAGANDEEP HANKINS MD May 25, 2017 00:01
[2017-05-25] MEDS: IPRATROPIUM 0.5MG/ALBUTEROL 2.5MG INH SOL UD 3ML (DUONEB)(J7620) NEB SCH ×2 (01:29→07:23)
[2017-05-25] MEDS: metroNIDAZOLE 500 MG in APPROPRIATE DILUENT 1 EA IV SCH (02:20)
[2017-05-25 04:00] VITALS: BP 144/73
[2017-05-25 07:06] LABS: BASO % 0.4 % (0.0-1.0); EOS # 0.2 10^3/uL (0.0-0.50); IMMATURE GRANULOCYTE % 0.4 % (0-0); LYMPH # 2.3 10^3/uL (1.5-4.5); LYMPH % 34.4 % (24.0-44.0); MEAN CORPUSCULAR HEMOGLOBIN 32.1 pg (27.0-33.0); MEAN CORPUSCULAR HGB CONC 33.2 g/dl (32.0-36.5); MEAN CORPUSCULAR VOLUME 96.6 fl (80.0-96.0); MONO # 0.5 10^3/uL (0.0-0.8); MONO % 6.8 % (0.0-5.0); NEUTROPHILS # 3.7 10^3/uL (1.8-7.7); PLATELET COUNT, AUTOMATED 223 10^3/uL (150-450); RED CELL DISTRIBUTION WIDTH 11.9 % (11.5-14.5); WHITE BLOOD COUNT 6.8 10^3/uL (4.0-10.0)
[2017-05-25 07:28] LABS: ANION GAP 7 MEQ/L (8-16); BLOOD UREA NITROGEN 8 MG/DL (7-18); CALCIUM LEVEL 8.7 MG/DL (8.8-10.2); CARBON DIOXIDE LEVEL 31 MEQ/L (21-32); CHLORIDE LEVEL 102 MEQ/L (98-107); CREATININE FOR GFR 0.77 MG/DL (0.55-1.02); GLOMERULAR FILTRATION RATE > 60.0 (>45); GLUCOSE, FASTING 214 MG/DL (80-110); POTASSIUM SERUM 3.9 MEQ/L (3.5-5.1); SODIUM LEVEL 140 MEQ/L (136-145)
[2017-05-25 08:00] VITALS: BP 130/70
[2017-05-25] MEDS: ASPIRIN 81 MG ENTERIC TAB PO SCH (08:42)
[2017-05-25] MEDS: HumaLOG INSULIN (NovoLOG) PER UNIT SC SCH (08:42)
[2017-05-25] MEDS: PERCOCET 5MG/325MG TAB PO PRN (10:03)
== END 2017-05-25 10:10 | disposition home or self-care (01) | DRG 244 ==
LOC: M ED 08:26 → M ED INP 12:00 → M PED 13:46
PROVIDERS: ADMIT Family Medicine; ATTEND Internal Medicine
DX: K57.92 Diverticulitis of intestine, part unspecified, without perforation or abscess without bleeding (principal); J96.11 Chronic respiratory failure with hypoxia; J44.9 Chronic obstructive pulmonary disease, unspecified; I10 Essential (primary) hypertension; E11.9 Type 2 diabetes mellitus without complications; E78.5 Hyperlipidemia, unspecified; Z79.82 Long term (current) use of aspirin; Z79.899 Other long term (current) drug therapy; F17.200 Nicotine dependence, unspecified, uncomplicated

== ENCOUNTER → 2017-10-08 | Outpatient (CLI) | payer OTHER ==
[2017-10-08 14:09] LABS: ANION GAP 4 MEQ/L (8-16); BLOOD UREA NITROGEN 15 MG/DL (7-18); CALCIUM LEVEL 9.2 MG/DL (8.8-10.2); CARBON DIOXIDE LEVEL 34 MEQ/L (21-32); CHLORIDE LEVEL 103 MEQ/L (98-107); CREATININE FOR GFR 0.79 MG/DL (0.55-1.30); GLOMERULAR FILTRATION RATE > 60.0 (>45); GLUCOSE, FASTING 131 MG/DL (70-100); POTASSIUM SERUM 4.1 MEQ/L (3.5-5.1); SODIUM LEVEL 141 MEQ/L (136-145)
== END ==
LOC: M WUC 11:06
DX: I27.81 Cor pulmonale (chronic) (principal)
CPT/HCPCS: 80048

== ENCOUNTER → 2017-11-22 | Outpatient (CLI) | payer OTHER | LOC: M RAD 08:28 | DX: J44.9 Chronic obstructive pulmonary disease, unspecified (principal); F17.210 Nicotine dependence, cigarettes, uncomplicated; Z12.2 Encounter for screening for malignant neoplasm of respiratory organs | CPT/HCPCS: G0297 ==

== ENCOUNTER → 2019-01-03 | Outpatient (CLI) | payer OTHER ==
[~2019-01-03] MED LIST changes: -ASPI1TAB PO; +ASPI81TA26 PO; +CIPR500T3 PO; +GLIP10TA6 PO; -GLIP1TAB49 PO; +GLIP5TAB20 PO; -LASI40TA PO; +LASI40TA9 PO; +METR-265 PO; +OXYC1TAB23 PO
[2019-01-03 10:10] LABS: BASO % 0.3 % (0.0-1.0); EOS # 0.3 10^3/uL (0.0-0.50); HEMATOCRIT 39.6 % (36.0-47.0); HEMOGLOBIN 13.2 g/dl (12.0-15.5); LYMPH % 29.2 % (24.0-44.0); MEAN CORPUSCULAR HEMOGLOBIN 32.9 pg (27.0-33.0); MEAN CORPUSCULAR HGB CONC 33.3 g/dl (32.0-36.5); MEAN CORPUSCULAR VOLUME 98.8 fl (80.0-96.0); MONO # 0.5 10^3/uL (0.0-0.8); MONO % 6.8 % (0.0-5.0); NEUTROPHILS # 3.9 10^3/uL (1.8-7.7); NEUTROPHILS % 58.3 % (36.0-66.0); PLATELET COUNT, AUTOMATED 238 10^3/uL (150-450); RED BLOOD COUNT 4.01 10^6/uL (4.00-5.40); WHITE BLOOD COUNT 6.8 10^3/uL (4.0-10.0)
[2019-01-03 10:49] LABS: HEMOGLOBIN A1c 9.8 %
[2019-01-03 10:54] LABS: ALBUMIN 3.5 GM/DL (3.2-5.2); ALT/SGPT 18 U/L (12-78); BILIRUBIN,TOTAL 0.4 MG/DL (0.2-1.0); BLOOD UREA NITROGEN 13 MG/DL (7-18); CALCIUM LEVEL 8.9 MG/DL (8.8-10.2); CARBON DIOXIDE LEVEL 34 MEQ/L (21-32); CHLORIDE LEVEL 102 MEQ/L (98-107); CHOLESTEROL LEVEL 112 MG/DL (<200); CHOLESTEROL RISK RATIO 3.294 (<5); CREATININE FOR GFR 0.85 MG/DL (0.55-1.30); GLOMERULAR FILTRATION RATE > 60.0 (>45); GLUCOSE, FASTING 243 MG/DL (70-100); HDL CHOLESTEROL 34 MG/DL (>40); LDL CHOLESTEROL 46 MG/DL (<100); NON-HDL-C 78 MG/DL; POTASSIUM SERUM 4.4 MEQ/L (3.5-5.1); SODIUM LEVEL 139 MEQ/L (136-145); TOTAL PROTEIN 6.6 GM/DL (6.4-8.2); TRIGLYCERIDES LEVEL 161 MG/DL (<150)
[2019-01-03 10:58] LABS: MAU/CREAT RATIO 31.1 MCG/MG (0.0-30.0)
== END ==
LOC: M WUC 08:57
PROVIDERS: ATTEND Family Medicine
DX: E11.9 Type 2 diabetes mellitus without complications (principal)

== ENCOUNTER 2019-02-10 19:44 | Emergency (ER) | payer OTHER ==
[~2019-02-10] VITALS: Ht 165.1 cm; Wt 90.0 kg
[~2019-02-10 19:44] MED LIST changes: +LISI10TA15 PO; -LISI10TA2 PO
[2019-02-10] MEDS ORDERED: NS 1,000 ML IV ONE (21:15)
[2019-02-10] MEDS ORDERED: KETOROLAC 30 MG/ML VIAL (J1885) IV ONE (22:00)
[2019-02-10 22:01] LABS: BASO % 0.3 % (0.0-1.0); EOS # 0.2 10^3/uL (0.0-0.5); HEMATOCRIT 40.6 % (36.0-47.0); HEMOGLOBIN 13.9 g/dl (12.0-15.5); LYMPH # 2.6 10^3/uL (1.5-5.0); LYMPH % 23.7 % (24.0-44.0); MEAN CORPUSCULAR HEMOGLOBIN 34.2 pg (27.0-33.0); MEAN CORPUSCULAR HGB CONC 34.2 g/dl (32.0-36.5); MEAN CORPUSCULAR VOLUME 99.8 fl (80.0-96.0); MONO # 0.7 10^3/uL (0.0-0.8); MONO % 6.6 % (0.0-5.0); NEUTROPHILS # 7.3 10^3/uL (1.5-8.5); PLATELET COUNT, AUTOMATED 249 10^3/uL (150-450); RED BLOOD COUNT 4.07 10^6/uL (4.00-5.40)
[2019-02-10] MEDS ORDERED: ISOVUE-370 76% 100ML VIAL (Q9967) As Ordered ONE (22:06)
[2019-02-10 22:42] LABS: ALBUMIN 3.5 GM/DL (3.2-5.2); ALT/SGPT 18 U/L (12-78); BILIRUBIN,DIRECT 0.2 MG/DL (0.0-0.2); BILIRUBIN,TOTAL 0.6 MG/DL (0.2-1.0); TOTAL PROTEIN 7.4 GM/DL (6.4-8.2)
--- NOTE | 2019-02-10 23:00 | REPVR ---
EXAM: CT Abdomen and Pelvis With Contrast EXAM DATE/TIME: 02/10/2019 10:13 PM CLINICAL HISTORY: 63 years old, female; Abdominal pain; Localized; Left lower quadrant (llq); Additional info: Llq pain TECHNIQUE: Imaging protocol: Computed tomography of the abdomen and pelvis with intravenous contrast. Axial, coronal and sagittal reformatted images were created and reviewed. Radiation optimization: All CT scans at this facility use at least one of these dose optimization techniques: automated exposure control; mA and/or kV adjustment per patient size (includes targeted exams where dose is matched to clinical indication); or iterative reconstruction. Contrast material: ISOVUE 370; Contrast volume: 100 ml; Contrast route: IV; COMPARISON: CT ABD/PEL W/IV CONTRAST ONLY 05/21/2017 4:59 PM FINDINGS: Lungs: Mild linear stranding at the lung bases, consistent with atelectasis and/or scarring. Mediastinum: Small hiatal hernia. Liver: Diffuse hepatic steatosis. Gallbladder and bile ducts: No radiodense gallstones. No biliary ductal dilatation. Pancreas: Mildly enlarged, edematous pancreatic tail with associated peripancreatic stranding and edema. No necrosis or hemorrhage. Spleen: Unremarkable. Adrenals: 1 cm low-density left adrenal nodule, likely a benign adenoma. Kidneys and ureters: 1.4 cm right renal cyst. No radiodense calculi. No hydronephrosis. Stomach and bowel: Colonic diverticulosis without evidence of diverticulitis. No obstruction. No bowel wall thickening. No pneumatosis. Right spigelian hernia containing a nonobstructed portion of a loop of ascending colon. Appendix: Appendix not identified with certainty but no right lower quadrant inflammatory change to suggest acute appendicitis. Intraperitoneal space: No free fluid. No organized fluid collection. No free air. Vasculature: Moderate atherosclerotic disease. No aneurysm or dissection. Lymph nodes: No pathologically enlarged lymph nodes. Bladder: Decompressed urinary bladder, which limits evaluation for wall thickening. Reproductive: Unremarkable. Bones/joints: No acute osseous abnormality. Osteopenia. Degenerative changes. Soft tissues: Small, fat-containing umbilical and inguinal hernias. IMPRESSION: 1. Acute pancreatitis, as described above. Correlate with serum amylase and lipase levels. No drainable fluid collection. No necrosis or hemorrhage. 2. Additional findings, as above. Electronically signed by: Rm Earl On 02/10/2019 22:59:52 PM
[2019-02-10 23:39] LABS: LIPASE 953 U/L (73-393)
[2019-02-10] MEDS ORDERED: NORC1TAB7 PO (23:52)
[2019-02-10] MEDS ORDERED: ONDA4TAB6 PO (23:52)
[2019-02-11 00:13] VITALS: BP 110/58
== END 2019-02-11 00:17 | disposition home or self-care (01) ==
LOC: M ED 19:44
DX: K85.90 Acute pancreatitis without necrosis or infection, unspecified (principal); E11.9 Type 2 diabetes mellitus without complications; I10 Essential (primary) hypertension; E78.5 Hyperlipidemia, unspecified; G47.33 Obstructive sleep apnea (adult) (pediatric); Z79.82 Long term (current) use of aspirin; Z79.84 Long term (current) use of oral hypoglycemic drugs; Z79.899 Other long term (current) drug therapy; Z87.891 Personal history of nicotine dependence
CPT/HCPCS: 74177; 80047; 80076; 81001; 83690; 85025; 96374; 99284; J1885; Q9967

== ENCOUNTER 2019-04-07 12:41 | Emergency (ER) | payer OTHER ==
[~2019-04-07] VITALS: Ht 162.6 cm; Wt 85.5 kg
[~2019-04-07 12:41] MED LIST changes: -DOXY100T16 PO; +DOXY100T27 PO; +NORC1TAB7 PO; +ONDA4TAB6 PO
[2019-04-07 12:42] VITALS: BP 157/75
== END 2019-04-07 13:19 | disposition home or self-care (01) ==
LOC: M ED 12:41
DX: B35.1 Tinea unguium (principal); E11.9 Type 2 diabetes mellitus without complications; I10 Essential (primary) hypertension; J44.9 Chronic obstructive pulmonary disease, unspecified; F17.210 Nicotine dependence, cigarettes, uncomplicated; Z99.81 Dependence on supplemental oxygen; Z79.899 Other long term (current) drug therapy; Z79.82 Long term (current) use of aspirin

== ENCOUNTER → 2019-05-24 | Outpatient (CLI) | payer OTHER ==
--- NOTE | 2019-05-24 13:04 | REP ---
LOW DOSE LUNG SCREENING CT: Axial low dose lung screening CT performed without the use of intravenous contrast and compared to a prior study of 11/22/2017. In the left upper lobe there is a 4 mm ground glass opacity focally. This is of doubtful significance. No other nodule is seen bilaterally. Previously noted curvilinear lingular density has resolved. Heart is not enlarged. Mediastinal countours appear unremarkable. There is mild atherosclerotic calcification of the thoracic aorta without aneurysm. There are degenerative changes of the spine. IMPRESSION: Lung-RADS category 2 benign. There is a 4 mm ground glass opacity in the left upper lobe. This is of doubtful significance. It is not seen on the prior study. As per lung-RADS recommendations yearly followup lung screening CT is recommended. Electronically Signed by Amari Kim MD 05/24/2019 08:00 P
== END ==
LOC: M RAD 10:51
PROVIDERS: ATTEND Nurse Practitioner Adult Health
DX: Z12.2 Encounter for screening for malignant neoplasm of respiratory organs (principal); R91.8 Other nonspecific abnormal finding of lung field; F17.218 Nicotine dependence, cigarettes, with other nicotine-induced disorders

== ENCOUNTER 2019-10-04 11:58 | Emergency (ER) | payer OTHER ==
[~2019-10-04] VITALS: Ht 162.6 cm; Wt 88.9 kg
[2019-10-04] MEDS ORDERED: ASPIRIN 81 MG CHEW TABLET PO ONE (13:00)
[2019-10-04 13:05] LABS: BASO % 0.3 % (0.0-1.0); EOS # 0.3 10^3/uL (0.0-0.5); EOS % 2.4 % (0.0-3.0); HEMATOCRIT 41.9 % (36.0-47.0); HEMOGLOBIN 14.4 g/dl (12.0-15.5); LYMPH # 2.9 10^3/uL (1.5-5.0); MEAN CORPUSCULAR HGB CONC 34.4 g/dl (32.0-36.5); MEAN CORPUSCULAR VOLUME 98.8 fl (80.0-96.0); MONO # 0.6 10^3/uL (0.0-0.8); MONO % 5.3 % (0.0-5.0); NEUTROPHILS # 7.6 10^3/uL (1.5-8.5); NEUTROPHILS % 66.7 % (36.0-66.0); PLATELET COUNT, AUTOMATED 252 10^3/uL (150-450); RED BLOOD COUNT 4.24 10^6/uL (4.00-5.40); WHITE BLOOD COUNT 11.4 10^3/uL (4.0-10.0)
[2019-10-04 13:34] LABS: BLOOD UREA NITROGEN 14 MG/DL (7-18); CALCIUM LEVEL 9.4 MG/DL (8.8-10.2); CARBON DIOXIDE LEVEL 34 MEQ/L (21-32); CHLORIDE LEVEL 100 MEQ/L (98-107); CK-MB VALUE MASS < 1.0 NG/ML (<3.6); CPK CREATINE PHOSPHOKINASE 53 U/L (26-192); CREATININE FOR GFR 0.81 MG/DL (0.55-1.30); GLOMERULAR FILTRATION RATE > 60.0 (>45); GLUCOSE, FASTING 156 MG/DL (70-100); MB/CK RELATIVE INDEX 1.89 (< OR =4); POTASSIUM SERUM 3.5 MEQ/L (3.5-5.1); SODIUM LEVEL 139 MEQ/L (136-145); TROPONIN I < 0.02 NG/ML (< 0.10)
[2019-10-04] MEDS ORDERED: COMBIVENT RESPIMAT 100-20MCG INHALER 4GM INH PRN (13:45)
[2019-10-04] MEDS ORDERED: IBUP-1022 PO (14:04)
[2019-10-04 14:08] VITALS: BP 118/62
--- NOTE | 2019-10-04 14:42 | REP ---
CHEST, SINGLE VIEW: There is no evidence of acute infiltrate. No pleural effusion is seen. The heart is normal in size. The mediastinal silhouette is unremarkable. The visualized osseous structures are intact. IMPRESSION: No acute pulmonary disease. Electronically Signed by Amari Kim MD 10/04/2019 02:58 P
--- NOTE | 2019-10-04 16:45 | ECGEPIP ---
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
== END 2019-10-04 14:17 | disposition home or self-care (01) ==
LOC: M ED 11:58
DX: R09.1 Pleurisy (principal); I10 Essential (primary) hypertension; J44.9 Chronic obstructive pulmonary disease, unspecified; Z99.81 Dependence on supplemental oxygen; E78.49 Other hyperlipidemia; E11.9 Type 2 diabetes mellitus without complications

== ENCOUNTER → 2020-02-07 | Outpatient (CLI) | payer OTHER ==
[~2020-02-07] MED LIST changes: +IBUP-1022 PO
[2020-02-07 07:14] LABS: HEMATOCRIT 39.3 % (36.0-47.0); HEMOGLOBIN 12.9 g/dl (12.0-15.5); MEAN CORPUSCULAR HEMOGLOBIN 33.1 pg (27.0-33.0); MEAN CORPUSCULAR HGB CONC 32.8 g/dl (32.0-36.5); MEAN CORPUSCULAR VOLUME 100.8 fl (80.0-96.0); PLATELET COUNT, AUTOMATED 256 10^3/uL (150-450); WHITE BLOOD COUNT 8.6 10^3/uL (4.0-10.0)
[2020-02-07 07:39] LABS: ALBUMIN 3.3 GM/DL (3.2-5.2); ALT/SGPT 35 U/L (12-78); BILIRUBIN,TOTAL 0.4 MG/DL (0.2-1.0); BLOOD UREA NITROGEN 12 MG/DL (7-18); CALCIUM LEVEL 8.9 MG/DL (8.8-10.2); CARBON DIOXIDE LEVEL 34 MEQ/L (21-32); CHLORIDE LEVEL 102 MEQ/L (98-107); CHOLESTEROL LEVEL 113 MG/DL (<200); CHOLESTEROL RISK RATIO 3.054 (<5); CREATININE FOR GFR 0.84 MG/DL (0.55-1.30); GLOMERULAR FILTRATION RATE > 60.0 (>45); GLUCOSE, FASTING 168 MG/DL (70-100); HDL CHOLESTEROL 37 MG/DL (>40); LDL CHOLESTEROL 30 MG/DL (<100); NON-HDL-C 76 MG/DL; POTASSIUM SERUM 4.3 MEQ/L (3.5-5.1); SODIUM LEVEL 141 MEQ/L (136-145); TOTAL PROTEIN 6.5 GM/DL (6.4-8.2); TRIGLYCERIDES LEVEL 229 MG/DL (<150)
[2020-02-07 08:02] LABS: MALB URINE SIEMENS 56.7 MG/L; MAU/CREAT RATIO 14.2 MCG/MG (0.0-30.0)
== END ==
LOC: M LAB 06:19
PROVIDERS: ATTEND Family Medicine
DX: E11.9 Type 2 diabetes mellitus without complications (principal)

== ENCOUNTER → 2020-06-20 | Outpatient (CLI) | payer OTHER ==
[~2020-06-20] MED LIST changes: +LISI10TA22 PO; -LISI10TA4 PO
--- NOTE | 2020-06-21 06:58 | REP ---
INDICATION: NICOTINE DEPENDENCE, CIGARETTES, W OTH DISORDERS COMPARISON: 05/24/2019 TECHNIQUE: Axial noncontrast images from the thoracic inlet to the upper abdomen using low-dose lung screening technique (LDCT). FINDINGS: The bilateral lung hinds are relatively well aerated and clear. Previously noted small 4 mm nodule in the periphery of the left upper lobe now measures 2 mm and may represent small residual scarring. No consolidation, suspicious nodule or mass lesion. No pleural effusion. IMPRESSION: Lung-RADS category 2. Small 2 mm nodule in the periphery of the left upper lobe likely represents scar and decreased from prior examination. Annual low-dose CT evaluation recommended. <Electronically signed by Rickie Urias > 06/21/20 [id number]
== END ==
LOC: M RAD 10:12
PROVIDERS: ATTEND Nurse Practitioner Adult Health
DX: R91.1 Solitary pulmonary nodule (principal); F17.218 Nicotine dependence, cigarettes, with other nicotine-induced disorders

== ENCOUNTER → 2020-08-13 | Outpatient (CLI) | payer OTHER ==
[2020-08-13 08:30] LABS: HEMOGLOBIN 12.4 g/dl (12.0-15.5); MEAN CORPUSCULAR HEMOGLOBIN 31.2 pg (27.0-33.0); MEAN CORPUSCULAR HGB CONC 31.8 g/dl (32.0-36.5); PLATELET COUNT, AUTOMATED 231 10^3/uL (150-450); RED BLOOD COUNT 3.98 10^6/uL (4.00-5.40); WHITE BLOOD COUNT 7.4 10^3/uL (4.0-10.0)
[2020-08-13 08:56] LABS: HEMOGLOBIN A1c 8.3 %
[2020-08-13 09:03] LABS: ALBUMIN 3.7 GM/DL (3.2-5.2); BILIRUBIN,TOTAL 0.3 MG/DL (0.2-1.0); CALCIUM LEVEL 9.1 MG/DL (8.8-10.2); CHOLESTEROL RISK RATIO 3.342 (<5); CREATININE FOR GFR 1.02 MG/DL (0.55-1.30); GLOMERULAR FILTRATION RATE 58.1 (>45); POTASSIUM SERUM 4.4 MEQ/L (3.5-5.1); TOTAL PROTEIN 6.9 GM/DL (6.4-8.2)
[2020-08-13 09:08] LABS: MALB URINE SIEMENS 93.7 MG/L; MAU/CREAT RATIO 34.1 MCG/MG (0.0-30.0)
== END ==
LOC: M LAB 07:16
PROVIDERS: ATTEND Family Medicine
DX: E11.9 Type 2 diabetes mellitus without complications (principal)

== ENCOUNTER → 2021-06-25 | Outpatient (CLI) | payer MEDICARE, OTHER ==
[~2021-06-25] MED LIST changes: -LISI10TA15 PO; +LISI10TA24 PO
== END ==
LOC: M RAD 06:46
PROVIDERS: ATTEND Nurse Practitioner Adult Health
DX: Z87.891 Personal history of nicotine dependence (principal)

== ENCOUNTER → 2022-03-05 | Outpatient (CLI) | payer OTHER ==
[2022-03-05 08:08] LABS: HEMATOCRIT 38.1 % (36.0-47.0); HEMOGLOBIN 12.1 g/dl (12.0-15.5); MEAN CORPUSCULAR HEMOGLOBIN 32.9 pg (27.0-33.0); MEAN CORPUSCULAR HGB CONC 31.8 g/dl (32.0-36.5); MEAN CORPUSCULAR VOLUME 103.5 fl (80.0-96.0); PLATELET COUNT, AUTOMATED 243 10^3/uL (150-450); RED BLOOD COUNT 3.68 10^6/uL (4.00-5.40); WHITE BLOOD COUNT 6.5 10^3/uL (4.0-10.0)
[2022-03-05 08:30] LABS: HEMOGLOBIN A1c 7.9 %
[2022-03-05 08:47] LABS: ALBUMIN 3.4 GM/DL (3.2-5.2); ALT/SGPT 18 U/L (12-78); BILIRUBIN,TOTAL 0.4 MG/DL (0.2-1.0); BLOOD UREA NITROGEN 12 MG/DL (7-18); CALCIUM LEVEL 9.1 MG/DL (8.8-10.2); CARBON DIOXIDE LEVEL 37 MEQ/L (21-32); CHLORIDE LEVEL 99 MEQ/L (98-107); CHOLESTEROL LEVEL 106 MG/DL (<200); CHOLESTEROL RISK RATIO 2.523 (<5); CREATININE FOR GFR 0.91 MG/DL (0.55-1.30); GLOMERULAR FILTRATION RATE > 60.0 (>45); GLUCOSE, FASTING 219 MG/DL (70-100); HDL CHOLESTEROL 42 MG/DL (>40); LDL CHOLESTEROL 12 MG/DL (<100); NON-HDL-C 64 MG/DL; POTASSIUM SERUM 4.6 MEQ/L (3.5-5.1); SODIUM LEVEL 138 MEQ/L (136-145); TOTAL PROTEIN 6.9 GM/DL (6.4-8.2); TRIGLYCERIDES LEVEL 262 MG/DL (<150)
[2022-03-05 10:23] LABS: MALB URINE SIEMENS 87.2 MG/L; MAU/CREAT RATIO 30.9 MCG/MG (0.0-30.0)
== END ==
LOC: M LAB 06:14 → M PLALAB 06:14
PROVIDERS: ATTEND Family Medicine
DX: E11.9 Type 2 diabetes mellitus without complications (principal)

== ENCOUNTER 2022-08-14 09:09 | Inpatient (IN) | payer MEDICARE, OTHER ==
[~2022-08-14] VITALS: Ht 160 cm; Wt 91.0 kg
[2022-08-14] VITALS (9 sets, daily range): BP systolic 87–109; BP diastolic 51–55
[2022-08-14] MEDS: ENOXAPARIN 40MG/0.4ML SYRINGE (J1650 PER 10MG) SC SCH (09:00)
[2022-08-14] MEDS ORDERED: NS 2,590 ML in IV 1 EA IV ONE (09:55)
[2022-08-14] MEDS ORDERED: methylPREDNISolone 125MG 2ML VIAL IV ONE (09:55)
[2022-08-14] MEDS ORDERED: cefTRIAXone SOD 2 GM in D5W MINI-BAG PLUS 50 ML IV ONE (09:55)
[2022-08-14] MEDS: IPRATROPIUM 0.5MG/ALBUTEROL 2.5MG INH SOL UD 3ML (DUONEB) NEB PRN ×3 (09:57→11:16)
[2022-08-14 10:31] LABS: HEMATOCRIT 34.4 % (36.0-47.0); HEMOGLOBIN 10.8 g/dl (12.0-15.5); MEAN CORPUSCULAR HGB CONC 31.4 g/dl (32.0-36.5); MEAN CORPUSCULAR VOLUME 105.2 fl (80.0-96.0); PLATELET COUNT, AUTOMATED 214 10^3/uL (150-450); RED BLOOD COUNT 3.27 10^6/uL (4.00-5.40); WHITE BLOOD COUNT 15.3 10^3/uL (4.0-10.0)
[2022-08-14 10:40] LABS: ANISOCYTOSIS 1+; LYMPHOCYTES 3 % (16-44); MONOCYTES 3 % (0-5); NEUTROPHILS 87 % (28-66); PLATELET ESTIMATE NORMAL (NORMAL); POLYCHROMASIA 1+
[2022-08-14 10:41] LABS: INR 1.13; PROTHROMBIN TIME 14.7 SECONDS (12.5-14.5)
[2022-08-14 10:45] LABS: ALBUMIN 2.7 G/DL (3.2-5.2); BILIRUBIN,DIRECT 0.2 MG/DL (<0.4); BILIRUBIN,TOTAL 0.6 MG/DL (0.3-1.2); CALCIUM LEVEL 8.5 MG/DL (8.3-10.6); CREATININE FOR GFR 1.24 MG/DL (0.55-1.30); FREE T4 0.95 NG/DL (0.89-1.76); GLOMERULAR FILTRATION RATE 46.1 (>45); POTASSIUM SERUM 4.3 MMOL/L (3.5-5.1); THYROID STIMULATING HORMONE 0.36 uIU/ML (0.55-4.78); TOTAL PROTEIN 5.9 G/DL (5.7-8.2)
[2022-08-14] MEDS ORDERED: HumuLIN R (REGULAR) INSULIN (NovoLIN R) **100U/ML** PER UNIT IV ONE (11:00)
[2022-08-14] MEDS ORDERED: JANU100T PO (11:23)
[2022-08-14] MEDS ORDERED: ALOG25TA PO (11:23)
[2022-08-14] MEDS ORDERED: FISH1CAP26 PO (11:23)
[2022-08-14] MEDS ORDERED: TOUJ1.2I SC (11:23)
[2022-08-14] MEDS ORDERED: FLUT1INH2 PO (11:23)
[2022-08-14] MEDS ORDERED: ALBU8.5H PO (11:23)
[2022-08-14] MEDS ORDERED: ACET-897 PO (11:27)
[2022-08-14] MEDS ORDERED: VITMTA PO (11:27)
[2022-08-14] MEDS ORDERED: TAB-TAB3 (11:27)
[2022-08-14] MEDS ORDERED: HOME MED LIST COMPLETE! XX SCH (11:35)
[2022-08-14] MEDS ORDERED: DEXTROSE 50% 50ML SYRINGE IV PRN (11:40)
[2022-08-14] MEDS ORDERED: GLUCOSE 4GM CHEW TABLET PO PRN (11:40)
[2022-08-14] MEDS ORDERED: ACETAMINOPHEN TAB 650MG DOSE (2X325MG) PO PRN (11:40)
[2022-08-14] MEDS ORDERED: GLUCAGON INJ 1MG VIAL SC PRN (11:40)
[2022-08-14] MEDS ORDERED: IPRATROPIUM 0.5MG/ALBUTEROL 2.5MG INH SOL UD 3ML (DUONEB) NEB PRN (11:50)
[2022-08-14] MEDS ORDERED: cefTRIAXone SOD 1 GM in D5W MINI-BAG PLUS 50 ML IV SCH (12:00)
[2022-08-14] MEDS ORDERED: AZITHROMYCIN INJ 500 MG, VIAL MATE ADAPTER 1 EACH in NS 250 ML IV SCH (12:00)
[2022-08-14] MEDS ORDERED: ALBUTEROL SULFATE 2.5MG/0.5ML INH NEB SOLN NEB PRN (12:05)
[2022-08-14] MEDS ORDERED: COMBIVENT RESPIMAT 100-20MCG INHALER 4GM INH SCH (12:05)
[2022-08-14] MEDS ORDERED: ISOVUE-370 76% 100ML VIAL As Ordered ONE (12:14)
[2022-08-14] MEDS ORDERED: NS 1,000 ML IV SCH (13:15)
[2022-08-14] MEDS ORDERED: IPRATROPIUM 0.5MG/ALBUTEROL 2.5MG INH SOL UD 3ML (DUONEB) NEB SCH (14:00)
[2022-08-14] MEDS ORDERED: LEVEMIR (INSULIN DETEMIR) 1 UNITS/0.01ML SC ONE (14:00)
[2022-08-14] MEDS: INSULIN LISPRO (NovoLOG) PER UNIT SC SCH ×3 (14:51→21:22)
[2022-08-14 15:02] LABS: ABG HCO3 29.4 MEQ/L (22.0-26.0); ABG O2 SATURATION 96.9 % (95.0-99.0); ABG PARTIAL PRESSURE O2 99.5 mmHg (75.0-100.0); ABG STANDARD HCO3 24.5 MEQ/L (22.0-26.0); ABG TOTAL CO2 31.7 MEQ/L (23.0-31.0); ABG pH (ARTERIAL) 7.205 UNITS (7.350-7.450)
[2022-08-14] MEDS: IPRATROPIUM 0.5MG/ALBUTEROL 2.5MG INH SOL UD 3ML (DUONEB) NEB SCH ×3 (15:43→23:21)
[2022-08-14] MEDS ORDERED: VANCOMYCIN HCL 1,000 MG, VIAL MATE ADAPTER 1 EACH in NS 250 ML IV SCH (16:25)
[2022-08-14] MEDS: PIPERACILLIN/TAZOBACTAM SOD 3.375 GM in D5W MINI-BAG PLUS 50 ML IV SCH ×2 (17:51→23:41)
[2022-08-14] MEDS: methylPREDNISolone 125MG 2ML VIAL IV SCH (17:51)
[2022-08-14 18:27] LABS: ABG HCO3 27.4 MEQ/L (22.0-26.0); ABG O2 SATURATION 91.6 % (95.0-99.0); ABG PARTIAL PRESSURE CO2 58.2 mmHg (35.0-45.0); ABG STANDARD HCO3 24.4 MEQ/L (22.0-26.0); ABG TOTAL CO2 29.2 MEQ/L (23.0-31.0); ABG pH (ARTERIAL) 7.291 UNITS (7.350-7.450)
[2022-08-14] MEDS ORDERED: VANCOMYCIN HCL 1,000 MG, VIAL MATE ADAPTER 1 EACH in D5W 250 ML IV ONE (20:00)
[2022-08-14] MEDS ORDERED: VANCOMYCIN HCL 750 MG, VIAL MATE ADAPTER 1 EACH in D5W 250 ML IV ONE (21:00)
[2022-08-15] VITALS (22 sets, daily range): BP systolic 91–117; BP diastolic 52–62
[2022-08-15] MEDS: methylPREDNISolone 125MG 2ML VIAL IV SCH ×3 (02:28→17:22)
[2022-08-15] MEDS: IPRATROPIUM 0.5MG/ALBUTEROL 2.5MG INH SOL UD 3ML (DUONEB) NEB SCH ×5 (04:13→19:17)
[2022-08-15] MEDS: PIPERACILLIN/TAZOBACTAM SOD 3.375 GM in D5W MINI-BAG PLUS 50 ML IV SCH ×4 (04:15→23:40)
[2022-08-15 05:49] LABS: ABG BASE EXCESS 0.9 (-2.0-2.0); ABG HCO3 29.6 MEQ/L (22.0-26.0); ABG O2 SATURATION 94.9 % (95.0-99.0); ABG PARTIAL PRESSURE CO2 70.6 mmHg (35.0-45.0); ABG PARTIAL PRESSURE O2 80.8 mmHg (75.0-100.0); ABG STANDARD HCO3 25.3 MEQ/L (22.0-26.0); ABG TOTAL CO2 31.8 MEQ/L (23.0-31.0); ABG pH (ARTERIAL) 7.241 UNITS (7.350-7.450)
[2022-08-15 06:32] LABS: MEAN CORPUSCULAR HEMOGLOBIN 33.3 pg (27.0-33.0); MEAN CORPUSCULAR HGB CONC 31.3 g/dl (32.0-36.5); MEAN CORPUSCULAR VOLUME 106.7 fl (80.0-96.0); PLATELET COUNT, AUTOMATED 216 10^3/uL (150-450); WHITE BLOOD COUNT 11.8 10^3/uL (4.0-10.0)
[2022-08-15 07:11] LABS: CALCIUM LEVEL 8.2 MG/DL (8.3-10.6); CREATININE FOR GFR 1.62 MG/DL (0.55-1.30); GLOMERULAR FILTRATION RATE 33.8 (>45); POTASSIUM SERUM 4.4 MMOL/L (3.5-5.1)
[2022-08-15] MEDS ORDERED: VANCOMYCIN HCL 750 MG, VIAL MATE ADAPTER 1 EACH in D5W 250 ML IV SCH (08:00)
[2022-08-15] MEDS: ASPIRIN 81MG ENTERIC TABLET PO SCH (08:29)
[2022-08-15] MEDS: ATORVASTATIN 20 MG TAB PO SCH (08:29)
[2022-08-15] MEDS: ENOXAPARIN 40MG/0.4ML SYRINGE (J1650 PER 10MG) SC SCH (08:30)
[2022-08-15] MEDS: AZITHROMYCIN 250MG TABLET PO SCH (08:30)
[2022-08-15] MEDS: INSULIN LISPRO (NovoLOG) PER UNIT SC SCH ×4 (08:30→21:43)
[2022-08-15] MEDS: PANTOPRAZOLE 40MG TAB (PROTONIX) PO SCH (08:30)
[2022-08-15] MEDS ORDERED: DOXYCYCLINE HYCLATE 100MG TABLET PO SCH (09:00)
[2022-08-15] MEDS ORDERED: cefTRIAXone SOD 1 GM in D5W MINI-BAG PLUS 50 ML IV SCH (09:00)
[2022-08-15] MEDS ORDERED: VANCOMYCIN HCL 500 MG in D5W MINI-BAG PLUS 100 ML IV SCH (09:00)
[2022-08-15] MEDS ORDERED: SODIUM CHLORIDE 0.9% 1000ML IV ONE (10:30)
[2022-08-15] MEDS ORDERED: LR 1,000 ML IV SCH (10:35)
[2022-08-15] MEDS ORDERED: NS 1,000 ML IV SCH (10:50)
[2022-08-15 11:50] LABS: ABG BASE EXCESS 3.1 (-2.0-2.0); ABG HCO3 30.7 MEQ/L (22.0-26.0); ABG O2 SATURATION 52.9 % (95.0-99.0); ABG STANDARD HCO3 26.4 MEQ/L (22.0-26.0); ABG TOTAL CO2 32.7 MEQ/L (23.0-31.0); ABG pH (ARTERIAL) 7.296 UNITS (7.350-7.450)
[2022-08-15 11:51] LABS: ABG PARTIAL PRESSURE CO2 64.5 mmHg (35.0-45.0); ABG PARTIAL PRESSURE O2 27.2 mmHg (75.0-100.0)
[2022-08-15] MEDS ORDERED: NICOTINE 14 MG/24 HR TRANSDERMAL TD PRN (15:10)
[2022-08-15] MEDS ORDERED: MAG SULF 1GM/100ML (MAG RUN) 1 GM in IV 1 EA IV ONE (15:10)
[2022-08-15] MEDS ORDERED: VANCOMYCIN HCL 750 MG, VIAL MATE ADAPTER 1 EACH in NS 250 ML IV SCH (20:00)
[2022-08-15] MEDS ORDERED: LEVEMIR (INSULIN DETEMIR) 1 UNITS/0.01ML SC SCH (21:00)
[2022-08-15] MEDS ORDERED: VANCOMYCIN HCL 500 MG, VIAL MATE ADAPTER 1 EACH in NS 100 ML IV SCH (21:00)
[2022-08-15] MEDS: LEVEMIR (INSULIN DETEMIR) 1 UNITS/0.01ML SC SCH (21:43)
[2022-08-16] VITALS (11 sets, daily range): BP systolic 100–124; BP diastolic 55–66
[2022-08-16] MEDS: IPRATROPIUM 0.5MG/ALBUTEROL 2.5MG INH SOL UD 3ML (DUONEB) NEB SCH ×7 (00:01→23:04)
[2022-08-16] MEDS: methylPREDNISolone 125MG 2ML VIAL IV SCH ×3 (03:05→17:18)
[2022-08-16] MEDS: PIPERACILLIN/TAZOBACTAM SOD 3.375 GM in D5W MINI-BAG PLUS 50 ML IV SCH ×4 (04:47→23:14)
[2022-08-16 04:49] LABS: HEMATOCRIT 31.3 % (36.0-47.0); HEMOGLOBIN 9.6 g/dl (12.0-15.5); MEAN CORPUSCULAR HEMOGLOBIN 32.4 pg (27.0-33.0); MEAN CORPUSCULAR HGB CONC 30.7 g/dl (32.0-36.5); MEAN CORPUSCULAR VOLUME 105.7 fl (80.0-96.0); PLATELET COUNT, AUTOMATED 252 10^3/uL (150-450); RED BLOOD COUNT 2.96 10^6/uL (4.00-5.40); WHITE BLOOD COUNT 13.5 10^3/uL (4.0-10.0)
[2022-08-16 05:11] LABS: CALCIUM LEVEL 8.3 MG/DL (8.3-10.6); CREATININE FOR GFR 1.49 MG/DL (0.55-1.30); GLOMERULAR FILTRATION RATE 37.3 (>45); MAGNESIUM LEVEL 1.9 MG/DL (1.8-2.4); POTASSIUM SERUM 4.8 MMOL/L (3.5-5.1)
[2022-08-16 06:06] LABS: ABG BASE EXCESS 0.2 (-2.0-2.0); ABG HCO3 26.9 MEQ/L (22.0-26.0); ABG PARTIAL PRESSURE CO2 53.7 mmHg (35.0-45.0); ABG PARTIAL PRESSURE O2 91.2 mmHg (75.0-100.0); ABG STANDARD HCO3 24.7 MEQ/L (22.0-26.0); ABG TOTAL CO2 28.6 MEQ/L (23.0-31.0); ABG pH (ARTERIAL) 7.318 UNITS (7.350-7.450)
[2022-08-16] MEDS: ADVAIR HFA 115/21MCG INHALER INH SCH ×2 (08:00→19:45)
[2022-08-16] MEDS: PANTOPRAZOLE 40MG TAB (PROTONIX) PO SCH (08:03)
[2022-08-16] MEDS: ENOXAPARIN 40MG/0.4ML SYRINGE (J1650 PER 10MG) SC SCH (08:03)
[2022-08-16] MEDS: AZITHROMYCIN 250MG TABLET PO SCH (08:03)
[2022-08-16] MEDS: ASPIRIN 81MG ENTERIC TABLET PO SCH (08:03)
[2022-08-16] MEDS: ATORVASTATIN 20 MG TAB PO SCH (08:03)
[2022-08-16] MEDS: INSULIN LISPRO (NovoLOG) PER UNIT SC SCH ×4 (08:03→21:14)
[2022-08-16] MEDS ORDERED: IPRATROPIUM 0.5MG/ALBUTEROL 2.5MG INH SOL UD 3ML (DUONEB) NEB ONE (13:35)
[2022-08-16] MEDS ORDERED: guaiFENesin DM LIQ 10ML UD PO PRN (14:05)
[2022-08-16] MEDS: MONTELUKAST 4MG CHEW TABLET PO SCH (17:27)
[2022-08-16] MEDS ORDERED: VANCOMYCIN HCL 500 MG, VIAL MATE ADAPTER 1 EACH in NS 100 ML IV SCH (20:00)
[2022-08-16] MEDS ORDERED: VANCOMYCIN HCL 750 MG, VIAL MATE ADAPTER 1 EACH in NS 250 ML IV SCH ×2 (20:00→21:00)
[2022-08-16] MEDS: LEVEMIR (INSULIN DETEMIR) 1 UNITS/0.01ML SC SCH (21:14)
[2022-08-17] VITALS: BP 130/64
[2022-08-17] MEDS: methylPREDNISolone 125MG 2ML VIAL IV SCH ×2 (01:58→14:52)
[2022-08-17] MEDS: IPRATROPIUM 0.5MG/ALBUTEROL 2.5MG INH SOL UD 3ML (DUONEB) NEB SCH ×6 (03:43→23:13)
[2022-08-17 04:00] VITALS: BP 124/68
[2022-08-17 05:00] LABS: HEMATOCRIT 32.2 % (36.0-47.0); MEAN CORPUSCULAR HEMOGLOBIN 32.7 pg (27.0-33.0); MEAN CORPUSCULAR HGB CONC 31.1 g/dl (32.0-36.5); MEAN CORPUSCULAR VOLUME 105.2 fl (80.0-96.0); PLATELET COUNT, AUTOMATED 264 10^3/uL (150-450); RED BLOOD COUNT 3.06 10^6/uL (4.00-5.40); WHITE BLOOD COUNT 9.7 10^3/uL (4.0-10.0)
[2022-08-17] MEDS: PIPERACILLIN/TAZOBACTAM SOD 3.375 GM in D5W MINI-BAG PLUS 50 ML IV SCH ×4 (05:07→23:25)
[2022-08-17 05:30] LABS: CALCIUM LEVEL 8.5 MG/DL (8.3-10.6); CREATININE FOR GFR 1.1 MG/DL (0.55-1.30); GLOMERULAR FILTRATION RATE 52.9 (>45); MAGNESIUM LEVEL 1.9 MG/DL (1.8-2.4); PHOSPHORUS LEVEL 3.2 MG/DL (2.4-5.1); POTASSIUM SERUM 4.9 MMOL/L (3.5-5.1)
[2022-08-17] MEDS: ADVAIR HFA 115/21MCG INHALER INH SCH ×2 (07:35→19:12)
[2022-08-17 08:00] VITALS: BP 120/66
[2022-08-17 08:13] LABS: PERCENT SATURATION 24.4 % (13.2-45.0)
[2022-08-17 08:14] LABS: FERRITIN 111.9 NG/ML (7.3-270.7); FOLATE 8.8 NG/ML (>5.4)
[2022-08-17] MEDS: ASPIRIN 81MG ENTERIC TABLET PO SCH (08:20)
[2022-08-17] MEDS: ATORVASTATIN 20 MG TAB PO SCH (08:20)
[2022-08-17] MEDS: INSULIN LISPRO (NovoLOG) PER UNIT SC SCH ×5 (08:20→20:03)
[2022-08-17] MEDS: PANTOPRAZOLE 40MG TAB (PROTONIX) PO SCH (08:20)
[2022-08-17] MEDS: AZITHROMYCIN 250MG TABLET PO SCH (08:20)
[2022-08-17] MEDS: LEVEMIR (INSULIN DETEMIR) 1 UNITS/0.01ML SC SCH ×2 (08:20→20:03)
[2022-08-17] MEDS: ENOXAPARIN 40MG/0.4ML SYRINGE (J1650 PER 10MG) SC SCH (08:21)
[2022-08-17] MEDS: MONTELUKAST 4MG CHEW TABLET PO SCH (10:49)
[2022-08-17 12:31] VITALS: BP 128/62
[2022-08-17 16:13] VITALS: BP 129/60
[2022-08-17] MEDS ORDERED: INSULIN LISPRO (NovoLOG) PER UNIT SC ONE (17:20)
[2022-08-17] MEDS: CYANOCOBALAMIN 500 MCG TAB PO SCH (17:43)
[2022-08-17 20:15] VITALS: BP 132/62
[2022-08-18] VITALS: BP 118/60
[2022-08-18] MEDS: methylPREDNISolone 125MG 2ML VIAL IV SCH (01:24)
[2022-08-18] MEDS: IPRATROPIUM 0.5MG/ALBUTEROL 2.5MG INH SOL UD 3ML (DUONEB) NEB SCH ×2 (03:05→07:43)
[2022-08-18 04:00] VITALS: BP 144/67
[2022-08-18 04:53] LABS: HEMATOCRIT 32.6 % (36.0-47.0); HEMOGLOBIN 10.2 g/dl (12.0-15.5); MEAN CORPUSCULAR HEMOGLOBIN 32.8 pg (27.0-33.0); MEAN CORPUSCULAR HGB CONC 31.3 g/dl (32.0-36.5); MEAN CORPUSCULAR VOLUME 104.8 fl (80.0-96.0); PLATELET COUNT, AUTOMATED 260 10^3/uL (150-450); RED BLOOD COUNT 3.11 10^6/uL (4.00-5.40); WHITE BLOOD COUNT 9.5 10^3/uL (4.0-10.0)
[2022-08-18] MEDS: PIPERACILLIN/TAZOBACTAM SOD 3.375 GM in D5W MINI-BAG PLUS 50 ML IV SCH (05:08)
[2022-08-18 05:19] LABS: CALCIUM LEVEL 8.5 MG/DL (8.3-10.6); CREATININE FOR GFR 1.06 MG/DL (0.55-1.30); GLOMERULAR FILTRATION RATE 55.2 (>45); MAGNESIUM LEVEL 1.8 MG/DL (1.8-2.4); PHOSPHORUS LEVEL 3.1 MG/DL (2.4-5.1); POTASSIUM SERUM 4.7 MMOL/L (3.5-5.1)
[2022-08-18] MEDS: ADVAIR HFA 115/21MCG INHALER INH SCH (07:43)
[2022-08-18 08:00] VITALS: BP 133/62
[2022-08-18] MEDS: INSULIN LISPRO (NovoLOG) PER UNIT SC SCH ×2 (08:36→08:37)
[2022-08-18] MEDS: ENOXAPARIN 40MG/0.4ML SYRINGE (J1650 PER 10MG) SC SCH (08:39)
[2022-08-18] MEDS: MONTELUKAST 4MG CHEW TABLET PO SCH (08:40)
[2022-08-18] MEDS: CYANOCOBALAMIN 500 MCG TAB PO SCH (08:41)
[2022-08-18] MEDS: ATORVASTATIN 20 MG TAB PO SCH (08:42)
[2022-08-18] MEDS: PANTOPRAZOLE 40MG TAB (PROTONIX) PO SCH (08:42)
[2022-08-18] MEDS: AZITHROMYCIN 250MG TABLET PO SCH (08:42)
[2022-08-18] MEDS: ASPIRIN 81MG ENTERIC TABLET PO SCH (08:43)
[2022-08-18] MEDS ORDERED: predniSONE 20 MG TAB PO SCH (09:00)
[2022-08-18] MEDS ORDERED: LEVEMIR (INSULIN DETEMIR) 1 UNITS/0.01ML SC SCH (09:00)
[2022-08-18] MEDS ORDERED: AZIT-12 PO (09:21)
[2022-08-18] MEDS ORDERED: PRED10TA2 PO (09:21)
[2022-08-18] MEDS ORDERED: LEVO1TAB40 PO (09:27)
[2022-08-18] MEDS ORDERED: VITA100018 PO (09:49)
[2022-08-18] MEDS ORDERED: TREL1AER PO (10:43)
[2022-08-18] MEDS ORDERED: PRED20TA PO (10:45)
[2022-08-18] MEDS ORDERED: ALBU8.5H INH (10:45)
[2022-08-18] MEDS ORDERED: PREVNAR-20 VACCINE 0.5ML SYRINGE IM.IMMUN ONE (11:00)
[2022-08-18 16:08] LABS: BODY FLUID CULTURE Not indicated. (.); LEGIONELLA ANTIGEN URINE Negative (Negative); ORGANISM ID Not indicated. (.); SPECIMEN SOURCE Urine (.); URINE STREP PNEUMONIAE ANTIGEN Negative (Negative)
== END 2022-08-18 11:51 | disposition home health service (06) | DRG 871 ==
LOC: M ED 09:09 → M ED INP 11:47 → M ICU 16:23
PROVIDERS: ADMIT Internal Medicine; ATTEND Internal Medicine
DX: A41.9 Sepsis, unspecified organism (principal); J96.21 Acute and chronic respiratory failure with hypoxia; J96.22 Acute and chronic respiratory failure with hypercapnia; J18.0 Bronchopneumonia, unspecified organism; J44.0 Chronic obstructive pulmonary disease with (acute) lower respiratory infection; J44.1 Chronic obstructive pulmonary disease with (acute) exacerbation; E87.20 Acidosis, unspecified; N17.9 Acute kidney failure, unspecified; I10 Essential (primary) hypertension; E78.5 Hyperlipidemia, unspecified; E11.65 Type 2 diabetes mellitus with hyperglycemia; G47.33 Obstructive sleep apnea (adult) (pediatric); K21.9 Gastro-esophageal reflux disease without esophagitis; M19.90 Unspecified osteoarthritis, unspecified site; D51.0 Vitamin B12 deficiency anemia due to intrinsic factor deficiency; F17.200 Nicotine dependence, unspecified, uncomplicated; E83.42 Hypomagnesemia; R65.20 Severe sepsis without septic shock; N28.1 Cyst of kidney, acquired; R59.0 Localized enlarged lymph nodes; Z98.49 Cataract extraction status, unspecified eye; Z79.82 Long term (current) use of aspirin; Z99.81 Dependence on supplemental oxygen; Z79.899 Other long term (current) drug therapy; Z79.4 Long term (current) use of insulin

== ENCOUNTER 2022-08-27 08:40 | Inpatient (IN) | payer MEDICARE, OTHER ==
[2022-08-27] VITALS (30 sets, daily range): BP systolic 70–111; BP diastolic 39–67
[~2022-08-27] VITALS: Ht 160 cm; Wt 85.0 kg
[~2022-08-27 08:40] MED LIST changes: +ACET-897 PO; +ALBU8.5H INH; +ALBU8.5H PO; +ALOG25TA PO; +AZIT-12 PO; +FISH1CAP26 PO; +FLUT1INH2 PO; +JANU100T PO; +LEVO1TAB40 PO; +PRED10TA2 PO; +PRED20TA PO; +TAB-TAB3; +TOUJ1.2I SC; +TREL1AER PO; +VITA100018 PO; +VITMTA PO
[2022-08-27] MEDS ORDERED: IPRATROPIUM 0.5MG/ALBUTEROL 2.5MG INH SOL UD 3ML (DUONEB) NEB ONE (08:50)
[2022-08-27] MEDS ORDERED: methylPREDNISolone 125MG 2ML VIAL IV ONE (08:55)
[2022-08-27] MEDS: PANTOPRAZOLE 40MG VIAL IV SCH (09:00)
[2022-08-27 09:08] LABS: ABG BASE EXCESS 8.6 (-2.0-2.0); ABG O2 SATURATION 93.7 % (95.0-99.0); ABG PARTIAL PRESSURE O2 73.6 mmHg (75.0-100.0); ABG STANDARD HCO3 32.3 MEQ/L (22.0-26.0)
[2022-08-27 09:15] LABS: ABG PARTIAL PRESSURE CO2 98.2 mmHg (35.0-45.0); ABG pH (ARTERIAL) 7.228 UNITS (7.350-7.450)
[2022-08-27 09:29] LABS: BASO % 0.3 % (0.0-1.0); EOS % 0.1 % (0.0-3.0); HEMATOCRIT 41.2 % (36.0-47.0); HEMOGLOBIN 12.6 g/dl (12.0-15.5); LYMPH # 0.6 10^3/uL (1.5-5.0); LYMPH % 5.1 % (24.0-44.0); MEAN CORPUSCULAR HEMOGLOBIN 32.7 pg (27.0-33.0); MEAN CORPUSCULAR HGB CONC 30.6 g/dl (32.0-36.5); MONO # 0.2 10^3/uL (0.0-0.8); NEUTROPHILS # 9.8 10^3/uL (1.5-8.5); NEUTROPHILS % 89.8 % (36.0-66.0); PLATELET COUNT, AUTOMATED 160 10^3/uL (150-450); RED BLOOD COUNT 3.85 10^6/uL (4.00-5.40); WHITE BLOOD COUNT 10.9 10^3/uL (4.0-10.0)
[2022-08-27 09:40] LABS: INR 0.92; PARTIAL THROMBOPLASTIN TIME 21.9 SECONDS (24.8-34.2); PROTHROMBIN TIME 12.6 SECONDS (12.5-14.5)
[2022-08-27 09:58] LABS: ETHYL ALCOHOL (ETHANOL) 0.004 % (0.000-0.010)
[2022-08-27 10:00] LABS: ACETAMINOPHEN LEVEL < 2.0 UG/ML (10.0-20.0); CPK CREATINE PHOSPHOKINASE 35 U/L (34-145); SALICYLATE LEVEL < 3.0 MG/DL (<30)
[2022-08-27 10:09] LABS: ALBUMIN 2.9 G/DL (3.2-5.2); ALKALINE PHOSPHATASE 77 U/L (46-116); ALT/SGPT 22 U/L (7.0-40); AST/SGOT 14 U/L (<34); BILIRUBIN,DIRECT 0.2 MG/DL (<0.4); BILIRUBIN,TOTAL 0.7 MG/DL (0.3-1.2); BLOOD UREA NITROGEN 21 MG/DL (9-23); CALCIUM LEVEL 7.8 MG/DL (8.3-10.6); CARBON DIOXIDE LEVEL > 40.0 MMOL/L (20-31); CHLORIDE LEVEL 95 MMOL/L (98-107); CREATININE FOR GFR 1.07 MG/DL (0.55-1.30); GLOMERULAR FILTRATION RATE 54.6 (>45); GLUCOSE, FASTING 263 MG/DL (74-106); MB/CK RELATIVE INDEX 2.85 (< OR =4); POTASSIUM SERUM 4.5 MMOL/L (3.5-5.1); SODIUM LEVEL 139 MMOL/L (136-145); THYROID STIMULATING HORMONE 0.171 uIU/ML (0.55-4.78); TOTAL PROTEIN 6.1 G/DL (5.7-8.2)
[2022-08-27 10:11] LABS: RSV AMPLIFICATION NEGATIVE (NEGATIVE)
[2022-08-27 10:17] LABS: AMPHETAMINES LEVEL URINE NEGATIVE (NEGATIVE); BARBITURATES URINE NEGATIVE (NEGATIVE); BENZODIAZEPINES URINE NEGATIVE (NEGATIVE); COCAINE METABOLITE URINE NEGATIVE (NEGATIVE); METHADONE URINE NEGATIVE (NEGATIVE); OPIATES URINE NEGATIVE (NEGATIVE); PHENCYCLIDINE URINE NEGATIVE (NEGATIVE)
[2022-08-27 10:18] LABS: CANNABINOIDS URINE NEGATIVE (NEGATIVE)
[2022-08-27 10:49] LABS: ABG BASE EXCESS 8.8 (-2.0-2.0); ABG HCO3 40.4 MEQ/L (22.0-26.0); ABG O2 SATURATION 93.8 % (95.0-99.0); ABG PARTIAL PRESSURE O2 75.4 mmHg (75.0-100.0); ABG STANDARD HCO3 32.5 MEQ/L (22.0-26.0); ABG TOTAL CO2 43.4 MEQ/L (23.0-31.0)
[2022-08-27 10:53] LABS: ABG pH (ARTERIAL) 7.223 UNITS (7.350-7.450)
[2022-08-27 10:54] LABS: ABG PARTIAL PRESSURE CO2 100.2 mmHg (35.0-45.0)
[2022-08-27] MEDS: INSULIN LISPRO (NovoLOG) PER UNIT SC SCH ×2 (12:00→18:23)
[2022-08-27] MEDS ORDERED: DEXTROSE 50% 50ML SYRINGE IV PRN (12:10)
[2022-08-27] MEDS ORDERED: GLUCAGON INJ 1MG VIAL SC PRN (12:10)
[2022-08-27] MEDS ORDERED: GLUCOSE 4GM CHEW TABLET PO PRN (12:10)
[2022-08-27] MEDS: AZITHROMYCIN INJ 500 MG, VIAL MATE ADAPTER 1 EACH in NS 250 ML IV SCH (13:08)
[2022-08-27] MEDS: IPRATROPIUM 0.5MG/ALBUTEROL 2.5MG INH SOL UD 3ML (DUONEB) NEB SCH ×2 (13:17→20:10)
[2022-08-27] MEDS ORDERED: PRED20TA PO (13:24)
[2022-08-27] MEDS ORDERED: B-12100010 PO (13:24)
[2022-08-27] MEDS ORDERED: TREL1AER INH (13:24)
[2022-08-27] MEDS ORDERED: PRED10TA2 PO (13:24)
[2022-08-27] MEDS ORDERED: HOME MED LIST COMPLETE! XX SCH (13:25)
[2022-08-27 13:49] LABS: ABG BASE EXCESS 2.7 (-2.0-2.0); ABG HCO3 33.8 MEQ/L (22.0-26.0); ABG O2 SATURATION 97.1 % (95.0-99.0); ABG PARTIAL PRESSURE O2 98.7 mmHg (75.0-100.0); ABG STANDARD HCO3 26.9 MEQ/L (22.0-26.0); ABG TOTAL CO2 36.7 MEQ/L (23.0-31.0)
[2022-08-27 13:52] LABS: ABG pH (ARTERIAL) 7.181 UNITS (7.350-7.450)
[2022-08-27 13:53] LABS: ABG PARTIAL PRESSURE CO2 92.5 mmHg (35.0-45.0)
[2022-08-27] MEDS: PIPERACILLIN/TAZOBACTAM SOD 3.375 GM in D5W MINI-BAG PLUS 50 ML IV SCH ×2 (14:00→21:32)
[2022-08-27] MEDS: methylPREDNISolone 40MG 1ML VIAL IV SCH ×2 (16:25→21:33)
[2022-08-27 16:42] LABS: ABG BASE EXCESS 7.5 (-2.0-2.0); ABG HCO3 37.7 MEQ/L (22.0-26.0); ABG O2 SATURATION 97.8 % (95.0-99.0); ABG PARTIAL PRESSURE O2 103.8 mmHg (75.0-100.0); ABG STANDARD HCO3 31.4 MEQ/L (22.0-26.0); ABG TOTAL CO2 40.3 MEQ/L (23.0-31.0); ABG pH (ARTERIAL) 7.266 UNITS (7.350-7.450)
[2022-08-27 16:56] LABS: ABG PARTIAL PRESSURE CO2 84.7 mmHg (35.0-45.0)
[2022-08-27] MEDS ORDERED: SODIUM CHLORIDE 0.9% 1000ML IV ONE (17:00)
[2022-08-27] MEDS ORDERED: NS 500 ML IV ONE (17:45)
[2022-08-27] MEDS: ENOXAPARIN 40MG/0.4ML SYRINGE (J1650 PER 10MG) SC SCH (21:33)
[2022-08-28] VITALS (25 sets, daily range): BP systolic 78–122; BP diastolic 45–59
[2022-08-28] MEDS ORDERED: DEXTROSE 50% 50ML SYRINGE IV PRN (00:10)
[2022-08-28] MEDS ORDERED: GLUCOSE 4GM CHEW TABLET PO PRN (00:10)
[2022-08-28] MEDS ORDERED: GLUCAGON INJ 1MG VIAL SC PRN (00:10)
[2022-08-28] MEDS: IPRATROPIUM 0.5MG/ALBUTEROL 2.5MG INH SOL UD 3ML (DUONEB) NEB SCH ×4 (02:28→19:00)
[2022-08-28] MEDS: PIPERACILLIN/TAZOBACTAM SOD 3.375 GM in D5W MINI-BAG PLUS 50 ML IV SCH ×4 (02:44→20:34)
[2022-08-28] MEDS: methylPREDNISolone 40MG 1ML VIAL IV SCH ×4 (04:02→21:49)
[2022-08-28 05:33] LABS: HEMATOCRIT 37.2 % (36.0-47.0); HEMOGLOBIN 11.4 g/dl (12.0-15.5); MEAN CORPUSCULAR HGB CONC 30.6 g/dl (32.0-36.5); MEAN CORPUSCULAR VOLUME 107.8 fl (80.0-96.0); PLATELET COUNT, AUTOMATED 192 10^3/uL (150-450); RED BLOOD COUNT 3.45 10^6/uL (4.00-5.40); WHITE BLOOD COUNT 6.4 10^3/uL (4.0-10.0)
[2022-08-28 05:50] LABS: ABG O2 SATURATION 98.5 % (95.0-99.0)
[2022-08-28 05:51] LABS: ABG BASE EXCESS 6.1 (-2.0-2.0); ABG HCO3 38.3 MEQ/L (22.0-26.0); ABG PARTIAL PRESSURE O2 135.6 mmHg (75.0-100.0); ABG TOTAL CO2 41.8 MEQ/L (23.0-31.0)
[2022-08-28 05:52] LABS: ABG pH (ARTERIAL) 7.155 UNITS (7.350-7.450)
[2022-08-28 05:53] LABS: ABG PARTIAL PRESSURE CO2 111.3 mmHg (35.0-45.0)
[2022-08-28 06:11] LABS: BLOOD UREA NITROGEN 45 MG/DL (9-23); CALCIUM LEVEL 7.6 MG/DL (8.3-10.6); CARBON DIOXIDE LEVEL > 40.0 MMOL/L (20-31); CHLORIDE LEVEL 94 MMOL/L (98-107); CREATININE FOR GFR 1.88 MG/DL (0.55-1.30); GLOMERULAR FILTRATION RATE 28.5 (>45); GLUCOSE, FASTING 420 MG/DL (74-106); POTASSIUM SERUM 4.7 MMOL/L (3.5-5.1); SODIUM LEVEL 137 MMOL/L (136-145)
[2022-08-28] MEDS ORDERED: HumuLIN R (REGULAR) INSULIN (NovoLIN R) **100U/ML** PER UNIT IV STA (06:12)
[2022-08-28] MEDS: PANTOPRAZOLE 40MG VIAL IV SCH (08:26)
[2022-08-28] MEDS: INSULIN LISPRO (NovoLOG) PER UNIT SC SCH ×5 (08:26→20:19)
[2022-08-28] MEDS: LEVEMIR (INSULIN DETEMIR) 1 UNITS/0.01ML SC SCH ×2 (08:27→20:35)
[2022-08-28] MEDS: AZITHROMYCIN INJ 500 MG, VIAL MATE ADAPTER 1 EACH in NS 250 ML IV SCH (08:30)
[2022-08-28] MEDS: BUDESONIDE 0.5 MG/2 ML INHALATION SUSPENSION INH SCH ×2 (11:16→19:00)
[2022-08-28] MEDS: ATORVASTATIN 20 MG TAB PO SCH (11:23)
[2022-08-28] MEDS: ASPIRIN 81MG ENTERIC TABLET PO SCH (11:23)
[2022-08-28] MEDS: CYANOCOBALAMIN 500 MCG TAB PO SCH (11:24)
[2022-08-28] MEDS: MULTIVITAMINS/MINERALS THERAP 1 TAB PO SCH (11:24)
[2022-08-28 12:43] LABS: ABG BASE EXCESS 4.9 (-2.0-2.0); ABG O2 SATURATION 97.3 % (95.0-99.0); ABG PARTIAL PRESSURE O2 92.3 mmHg (75.0-100.0); ABG STANDARD HCO3 28.9 MEQ/L (22.0-26.0); ABG TOTAL CO2 35.1 MEQ/L (23.0-31.0); ABG pH (ARTERIAL) 7.303 UNITS (7.350-7.450)
[2022-08-28 12:45] LABS: ABG PARTIAL PRESSURE CO2 68.2 mmHg (35.0-45.0)
[2022-08-28] MEDS ORDERED: SODIUM CHLORIDE 0.9% 1000ML IV ONE (18:34)
[2022-08-28] MEDS: ENOXAPARIN 40MG/0.4ML SYRINGE (J1650 PER 10MG) SC SCH (20:35)
[2022-08-29] VITALS (15 sets, daily range): BP systolic 84–138; BP diastolic 50–67
[2022-08-29] MEDS: IPRATROPIUM 0.5MG/ALBUTEROL 2.5MG INH SOL UD 3ML (DUONEB) NEB SCH ×4 (01:12→19:28)
[2022-08-29] MEDS: methylPREDNISolone 40MG 1ML VIAL IV SCH ×3 (03:28→17:59)
[2022-08-29] MEDS: PIPERACILLIN/TAZOBACTAM SOD 3.375 GM in D5W MINI-BAG PLUS 50 ML IV SCH ×2 (03:29→08:14)
[2022-08-29 04:20] LABS: HEMATOCRIT 32.9 % (36.0-47.0); HEMOGLOBIN 10.2 g/dl (12.0-15.5); MEAN CORPUSCULAR HEMOGLOBIN 32.2 pg (27.0-33.0); MEAN CORPUSCULAR VOLUME 103.8 fl (80.0-96.0); PLATELET COUNT, AUTOMATED 168 10^3/uL (150-450); RED BLOOD COUNT 3.17 10^6/uL (4.00-5.40); WHITE BLOOD COUNT 7.7 10^3/uL (4.0-10.0)
[2022-08-29 04:58] LABS: CALCIUM LEVEL 7.6 MG/DL (8.3-10.6); CREATININE FOR GFR 1.59 MG/DL (0.55-1.30); GLOMERULAR FILTRATION RATE 34.6 (>45); MAGNESIUM LEVEL 1.7 MG/DL (1.8-2.4); POTASSIUM SERUM 4.6 MMOL/L (3.5-5.1)
[2022-08-29 05:39] LABS: ABG BASE EXCESS 9.7 (-2.0-2.0); ABG HCO3 37.5 MEQ/L (22.0-26.0); ABG O2 SATURATION 94.3 % (95.0-99.0); ABG PARTIAL PRESSURE O2 73.1 mmHg (75.0-100.0); ABG STANDARD HCO3 33.4 MEQ/L (22.0-26.0); ABG TOTAL CO2 39.6 MEQ/L (23.0-31.0); ABG pH (ARTERIAL) 7.348 UNITS (7.350-7.450)
[2022-08-29] MEDS: MAG SULF 1GM/100ML (MAG RUN) 1 GM in IV 1 EA IV SCH ×2 (05:40→06:41)
[2022-08-29 05:43] LABS: ABG PARTIAL PRESSURE CO2 69.8 mmHg (35.0-45.0)
[2022-08-29] MEDS: ATORVASTATIN 20 MG TAB PO SCH (08:13)
[2022-08-29] MEDS: MULTIVITAMINS/MINERALS THERAP 1 TAB PO SCH (08:13)
[2022-08-29] MEDS: LEVEMIR (INSULIN DETEMIR) 1 UNITS/0.01ML SC SCH ×2 (08:13→20:26)
[2022-08-29] MEDS: PANTOPRAZOLE 40MG VIAL IV SCH (08:13)
[2022-08-29] MEDS: CYANOCOBALAMIN 500 MCG TAB PO SCH (08:13)
[2022-08-29] MEDS: ASPIRIN 81MG ENTERIC TABLET PO SCH (08:13)
[2022-08-29] MEDS: INSULIN LISPRO (NovoLOG) PER UNIT SC SCH ×4 (08:14→20:26)
[2022-08-29] MEDS: BUDESONIDE 0.5 MG/2 ML INHALATION SUSPENSION INH SCH ×2 (08:35→19:28)
[2022-08-29] MEDS ORDERED: AZITHROMYCIN 250MG TABLET PO SCH (09:00)
[2022-08-29] MEDS ORDERED: NS 1,000 ML IV SCH (16:35)
[2022-08-29] MEDS: NICOTINE 14 MG/24 HR TRANSDERMAL TD PRN (18:00)
[2022-08-29] MEDS: ADVAIR HFA 115/21MCG INHALER INH SCH (19:28)
[2022-08-29] MEDS: OMEGA-3 1000MG CAPSULE PO SCH (20:26)
[2022-08-29] MEDS: ENOXAPARIN 40MG/0.4ML SYRINGE (J1650 PER 10MG) SC SCH (20:26)
[2022-08-29 20:32] LABS: APPEARANCE, URINE CLEAR (CLEAR); BACTERIA, URINE AUTO NEGATIVE (NEGATIVE); BILIRUBIN, URINE AUTO NEGATIVE (NEGATIVE); BLOOD, URINE BLOOD 2+ (NEGATIVE); COLOR, URINE YELLOW (YELLOW); GLUCOSE, URINE (UA) AUTO 3+ mg/dL (NEGATIVE); KETONE, URINE AUTO NEGATIVE (NEGATIVE); LEUKOCYTE ESTERASE, URINE AUTO TRACE (NEGATIVE); NITRITE, URINE AUTO NEGATIVE (NEGATIVE); PROTEIN, URINE AUTO 1+ mg/dL (NEGATIVE); RBC, URINE AUTO 68 /HPF (0-3); SPECIFIC GRAVITY URINE AUTO 1.028 (1.002-1.035); SQUAMOUS EPITHELIAL CELL UR AU 0 /HPF (0-6); UROBILINOGEN, URINE AUTO 0.2 mg/dL (0.0-2.0); WBC, URINE AUTO 24 /HPF (0-3)
[2022-08-29 20:52] LABS: CREATININE,RANDOM URINE 77.4 MG/DL
[2022-08-30] VITALS (8 sets, daily range): BP systolic 111–152; BP diastolic 63–83; O2SAT 94–95
[2022-08-30] MEDS: methylPREDNISolone 40MG 1ML VIAL IV SCH (02:00)
[2022-08-30] MEDS: IPRATROPIUM 0.5MG/ALBUTEROL 2.5MG INH SOL UD 3ML (DUONEB) NEB SCH ×4 (02:29→20:05)
[2022-08-30 04:44] LABS: BASO % 0.1 % (0.0-1.0); HEMATOCRIT 34.8 % (36.0-47.0); HEMOGLOBIN 10.5 g/dl (12.0-15.5); LYMPH # 1.1 10^3/uL (1.5-5.0); LYMPH % 12.2 % (24.0-44.0); MEAN CORPUSCULAR HEMOGLOBIN 31.9 pg (27.0-33.0); MEAN CORPUSCULAR HGB CONC 30.2 g/dl (32.0-36.5); MEAN CORPUSCULAR VOLUME 105.8 fl (80.0-96.0); MONO # 0.4 10^3/uL (0.0-0.8); MONO % 4.8 % (2.0-8.0); NEUTROPHILS # 7.2 10^3/uL (1.5-8.5); NEUTROPHILS % 81.9 % (36.0-66.0); PLATELET COUNT, AUTOMATED 188 10^3/uL (150-450); RED BLOOD COUNT 3.29 10^6/uL (4.00-5.40); WHITE BLOOD COUNT 8.8 10^3/uL (4.0-10.0)
[2022-08-30 05:12] LABS: BLOOD UREA NITROGEN 36 MG/DL (9-23); CALCIUM LEVEL 8.3 MG/DL (8.3-10.6); CARBON DIOXIDE LEVEL > 40.0 MMOL/L (20-31); CHLORIDE LEVEL 102 MMOL/L (98-107); CREATININE FOR GFR 0.91 MG/DL (0.55-1.30); GLOMERULAR FILTRATION RATE > 60.0 (>45); GLUCOSE, FASTING 203 MG/DL (74-106); POTASSIUM SERUM 4.8 MMOL/L (3.5-5.1); SODIUM LEVEL 143 MMOL/L (136-145)
[2022-08-30] MEDS: LevoFLOXacin 750 MG TABLET PO SCH (05:49)
[2022-08-30] MEDS: INSULIN LISPRO (NovoLOG) PER UNIT SC SCH ×4 (07:27→20:53)
[2022-08-30] MEDS: CYANOCOBALAMIN 500 MCG TAB PO SCH (07:28)
[2022-08-30] MEDS: ATORVASTATIN 20 MG TAB PO SCH (07:28)
[2022-08-30] MEDS: ASPIRIN 81MG ENTERIC TABLET PO SCH (07:28)
[2022-08-30] MEDS: LEVEMIR (INSULIN DETEMIR) 1 UNITS/0.01ML SC SCH ×2 (07:28→20:53)
[2022-08-30] MEDS: MULTIVITAMINS/MINERALS THERAP 1 TAB PO SCH (07:29)
[2022-08-30] MEDS: OMEGA-3 1000MG CAPSULE PO SCH ×2 (07:29→20:52)
[2022-08-30] MEDS: PANTOPRAZOLE 40MG TAB (PROTONIX) PO SCH (07:29)
[2022-08-30] MEDS: predniSONE 20 MG TAB PO SCH (07:32)
[2022-08-30] MEDS: ADVAIR HFA 115/21MCG INHALER INH SCH ×2 (08:28→20:06)
[2022-08-30] MEDS: BUDESONIDE 0.5 MG/2 ML INHALATION SUSPENSION INH SCH ×2 (08:28→20:05)
[2022-08-30] MEDS: NICOTINE 14 MG/24 HR TRANSDERMAL TD PRN (17:14)
[2022-08-30] MEDS: ENOXAPARIN 40MG/0.4ML SYRINGE (J1650 PER 10MG) SC SCH (20:53)
[2022-08-31] MEDS: IPRATROPIUM 0.5MG/ALBUTEROL 2.5MG INH SOL UD 3ML (DUONEB) NEB SCH ×4 (01:03→19:57)
[2022-08-31 05:15] VITALS: BP 132/65
[2022-08-31] MEDS: INSULIN LISPRO (NovoLOG) PER UNIT SC SCH ×4 (07:30→20:59)
[2022-08-31] MEDS: ADVAIR HFA 115/21MCG INHALER INH SCH ×2 (07:38→19:58)
[2022-08-31] MEDS: BUDESONIDE 0.5 MG/2 ML INHALATION SUSPENSION INH SCH ×2 (07:38→19:57)
[2022-08-31 07:47] LABS: BASO % 0.1 % (0.0-1.0); EOS % 0.1 % (0.0-3.0); HEMATOCRIT 37.5 % (36.0-47.0); HEMOGLOBIN 11.5 g/dl (12.0-15.5); LYMPH # 3.5 10^3/uL (1.5-5.0); LYMPH % 32.9 % (24.0-44.0); MEAN CORPUSCULAR HEMOGLOBIN 32.2 pg (27.0-33.0); MEAN CORPUSCULAR HGB CONC 30.7 g/dl (32.0-36.5); MONO # 0.7 10^3/uL (0.0-0.8); MONO % 6.2 % (2.0-8.0); NEUTROPHILS # 6.3 10^3/uL (1.5-8.5); NEUTROPHILS % 60.1 % (36.0-66.0); PLATELET COUNT, AUTOMATED 221 10^3/uL (150-450); RED BLOOD COUNT 3.57 10^6/uL (4.00-5.40); WHITE BLOOD COUNT 10.5 10^3/uL (4.0-10.0)
[2022-08-31 07:56] LABS: BLOOD UREA NITROGEN 25 MG/DL (9-23); CALCIUM LEVEL 9.2 MG/DL (8.3-10.6); CARBON DIOXIDE LEVEL > 40.0 MMOL/L (20-31); CHLORIDE LEVEL 102 MMOL/L (98-107); CREATININE FOR GFR 0.85 MG/DL (0.55-1.30); GLOMERULAR FILTRATION RATE > 60.0 (>45); GLUCOSE, FASTING 47 MG/DL (74-106); MAGNESIUM LEVEL 1.7 MG/DL (1.8-2.4); POTASSIUM SERUM 4.1 MMOL/L (3.5-5.1); SODIUM LEVEL 145 MMOL/L (136-145)
[2022-08-31] MEDS: CYANOCOBALAMIN 500 MCG TAB PO SCH (09:43)
[2022-08-31] MEDS: MULTIVITAMINS/MINERALS THERAP 1 TAB PO SCH (09:44)
[2022-08-31] MEDS: ATORVASTATIN 20 MG TAB PO SCH (09:44)
[2022-08-31] MEDS: predniSONE 20 MG TAB PO SCH (09:44)
[2022-08-31] MEDS: PANTOPRAZOLE 40MG TAB (PROTONIX) PO SCH (09:44)
[2022-08-31] MEDS: ASPIRIN 81MG ENTERIC TABLET PO SCH (09:44)
[2022-08-31] MEDS: OMEGA-3 1000MG CAPSULE PO SCH ×2 (09:45→20:59)
[2022-08-31] MEDS: MAG SULF 1GM/100ML (MAG RUN) 1 GM in IV 1 EA IV SCH ×2 (09:55→11:05)
[2022-08-31] MEDS: LEVEMIR (INSULIN DETEMIR) 1 UNITS/0.01ML SC SCH ×3 (11:04→21:07)
[2022-08-31] MEDS ORDERED: LEVO1TAB40 PO (13:37)
[2022-08-31] MEDS ORDERED: PRED10TA2 PO (13:37)
[2022-08-31 14:00] VITALS: BP 157/64
[2022-08-31] MEDS: NICOTINE 14 MG/24 HR TRANSDERMAL TD PRN (17:17)
[2022-08-31 20:35] VITALS: BP 159/80
[2022-08-31] MEDS: ENOXAPARIN 40MG/0.4ML SYRINGE (J1650 PER 10MG) SC SCH (20:59)
[2022-08-31] MEDS ORDERED: IPRATROPIUM 0.5MG/ALBUTEROL 2.5MG INH SOL UD 3ML (DUONEB) NEB ONE (23:15)
[2022-08-31] MEDS ORDERED: guaiFENesin SYRUP 200MG 10ML UDC PO PRN (23:45)
[2022-09-01] MEDS: IPRATROPIUM 0.5MG/ALBUTEROL 2.5MG INH SOL UD 3ML (DUONEB) NEB SCH ×4 (02:16→21:34)
[2022-09-01 05:20] VITALS: BP 127/66
[2022-09-01] MEDS: LevoFLOXacin 750 MG TABLET PO SCH (05:25)
[2022-09-01 06:40] LABS: BASO % 0.1 % (0.0-1.0); EOS % 0.1 % (0.0-3.0); HEMATOCRIT 33.8 % (36.0-47.0); HEMOGLOBIN 10.4 g/dl (12.0-15.5); LYMPH # 2.3 10^3/uL (1.5-5.0); LYMPH % 28.6 % (24.0-44.0); MEAN CORPUSCULAR HEMOGLOBIN 31.7 pg (27.0-33.0); MEAN CORPUSCULAR HGB CONC 30.8 g/dl (32.0-36.5); MONO # 0.5 10^3/uL (0.0-0.8); NEUTROPHILS # 5.1 10^3/uL (1.5-8.5); NEUTROPHILS % 64.3 % (36.0-66.0); PLATELET COUNT, AUTOMATED 175 10^3/uL (150-450); RED BLOOD COUNT 3.28 10^6/uL (4.00-5.40); WHITE BLOOD COUNT 7.9 10^3/uL (4.0-10.0)
[2022-09-01 07:10] LABS: BLOOD UREA NITROGEN 20 MG/DL (9-23); CALCIUM LEVEL 8.3 MG/DL (8.3-10.6); CARBON DIOXIDE LEVEL > 40.0 MMOL/L (20-31); CHLORIDE LEVEL 101 MMOL/L (98-107); CREATININE FOR GFR 0.79 MG/DL (0.55-1.30); GLOMERULAR FILTRATION RATE > 60.0 (>45); GLUCOSE, FASTING 180 MG/DL (74-106); MAGNESIUM LEVEL 1.8 MG/DL (1.8-2.4); POTASSIUM SERUM 4.1 MMOL/L (3.5-5.1); SODIUM LEVEL 143 MMOL/L (136-145)
[2022-09-01] MEDS: ADVAIR HFA 115/21MCG INHALER INH SCH ×2 (07:20→21:33)
[2022-09-01] MEDS: BUDESONIDE 0.5 MG/2 ML INHALATION SUSPENSION INH SCH ×2 (07:20→21:33)
[2022-09-01 08:00] VITALS: BP 129/65
[2022-09-01] MEDS: INSULIN LISPRO (NovoLOG) PER UNIT SC SCH ×4 (09:54→20:49)
[2022-09-01] MEDS: OMEGA-3 1000MG CAPSULE PO SCH ×2 (10:16→20:49)
[2022-09-01] MEDS: predniSONE 20 MG TAB PO SCH (10:16)
[2022-09-01] MEDS: CYANOCOBALAMIN 500 MCG TAB PO SCH (10:16)
[2022-09-01] MEDS: PANTOPRAZOLE 40MG TAB (PROTONIX) PO SCH (10:16)
[2022-09-01] MEDS: MULTIVITAMINS/MINERALS THERAP 1 TAB PO SCH (10:16)
[2022-09-01] MEDS: ASPIRIN 81MG ENTERIC TABLET PO SCH (10:17)
[2022-09-01] MEDS: ATORVASTATIN 20 MG TAB PO SCH (10:17)
[2022-09-01] MEDS: LEVEMIR (INSULIN DETEMIR) 1 UNITS/0.01ML SC SCH ×2 (10:17→20:48)
[2022-09-01 14:00] VITALS: BP 139/59
[2022-09-01] MEDS: NICOTINE 14 MG/24 HR TRANSDERMAL TD PRN (17:09)
[2022-09-01] MEDS: ENOXAPARIN 40MG/0.4ML SYRINGE (J1650 PER 10MG) SC SCH (20:49)
[2022-09-02] MEDS: IPRATROPIUM 0.5MG/ALBUTEROL 2.5MG INH SOL UD 3ML (DUONEB) NEB SCH ×2 (02:28→08:01)
[2022-09-02 06:00] VITALS: BP 137/64
[2022-09-02 06:14] LABS: BASO % 0.2 % (0.0-1.0); EOS % 0.2 % (0.0-3.0); HEMATOCRIT 37.7 % (36.0-47.0); HEMOGLOBIN 11.6 g/dl (12.0-15.5); LYMPH # 1.9 10^3/uL (1.5-5.0); LYMPH % 21.1 % (24.0-44.0); MEAN CORPUSCULAR HGB CONC 30.8 g/dl (32.0-36.5); MEAN CORPUSCULAR VOLUME 104.1 fl (80.0-96.0); MONO # 0.5 10^3/uL (0.0-0.8); MONO % 5.7 % (2.0-8.0); NEUTROPHILS # 6.3 10^3/uL (1.5-8.5); PLATELET COUNT, AUTOMATED 184 10^3/uL (150-450); RED BLOOD COUNT 3.62 10^6/uL (4.00-5.40); WHITE BLOOD COUNT 8.8 10^3/uL (4.0-10.0)
[2022-09-02 06:52] LABS: BLOOD UREA NITROGEN 18 MG/DL (9-23); CALCIUM LEVEL 8.9 MG/DL (8.3-10.6); CARBON DIOXIDE LEVEL > 40.0 MMOL/L (20-31); CHLORIDE LEVEL 103 MMOL/L (98-107); CREATININE FOR GFR 0.86 MG/DL (0.55-1.30); GLOMERULAR FILTRATION RATE > 60.0 (>45); GLUCOSE, FASTING 183 MG/DL (74-106); MAGNESIUM LEVEL 1.8 MG/DL (1.8-2.4); POTASSIUM SERUM 4.7 MMOL/L (3.5-5.1); SODIUM LEVEL 143 MMOL/L (136-145)
[2022-09-02] MEDS: ADVAIR HFA 115/21MCG INHALER INH SCH (08:01)
[2022-09-02] MEDS: BUDESONIDE 0.5 MG/2 ML INHALATION SUSPENSION INH SCH (08:01)
[2022-09-02] MEDS ORDERED: SITagliptin 50 MG TAB (JANUVIA) PO SCH (09:00)
[2022-09-02] MEDS ORDERED: MAGNESIUM OXIDE 400MG TAB (MAG-OX) PO SCH (09:00)
[2022-09-02] MEDS ORDERED: predniSONE 20 MG TAB PO SCH (09:00)
[2022-09-02] MEDS ORDERED: FUROSEMIDE 40 MG TAB PO SCH (09:00)
[2022-09-02] MEDS: CYANOCOBALAMIN 500 MCG TAB PO SCH (09:10)
[2022-09-02] MEDS: PANTOPRAZOLE 40MG TAB (PROTONIX) PO SCH (09:10)
[2022-09-02] MEDS: MULTIVITAMINS/MINERALS THERAP 1 TAB PO SCH (09:10)
[2022-09-02] MEDS: ATORVASTATIN 20 MG TAB PO SCH (09:11)
[2022-09-02] MEDS: ASPIRIN 81MG ENTERIC TABLET PO SCH (09:11)
[2022-09-02] MEDS: INSULIN LISPRO (NovoLOG) PER UNIT SC SCH ×2 (09:12→12:36)
[2022-09-02] MEDS: LEVEMIR (INSULIN DETEMIR) 1 UNITS/0.01ML SC SCH (09:12)
[2022-09-02] MEDS: OMEGA-3 1000MG CAPSULE PO SCH (09:13)
[2022-09-02] MEDS ORDERED: MAGN400T2 PO (10:49)
[2022-09-02] MEDS ORDERED: IPRA0.00 INH (10:49)
[2022-09-02] MEDS ORDERED: PRED20TA PO (10:49)
[2022-09-02] MEDS ORDERED: AZIT-12 PO (10:49)
[2022-09-02] MEDS ORDERED: PRED10TA2 PO (10:49)
[2022-09-05] MEDS ORDERED: predniSONE 10MG TAB PO SCH (09:00)
== END 2022-09-02 14:29 | disposition home health service (06) | DRG 189 ==
LOC: M ED 08:40 → EDBD 08:40 → M ED INP 11:59 → ENRESERV 15:16 → M ICU 16:43 → M MSPAV 08-30 21:42
PROVIDERS: ADMIT Internal Medicine; ATTEND Internal Medicine
PROC: B246ZZZ Ultrasonography of Right and Left Heart (ICD-10-PCS; principal; 2022-08-31)
DX: J96.21 Acute and chronic respiratory failure with hypoxia (principal); G93.41 Metabolic encephalopathy; J44.1 Chronic obstructive pulmonary disease with (acute) exacerbation; N17.9 Acute kidney failure, unspecified; E87.29 Other acidosis; J44.0 Chronic obstructive pulmonary disease with (acute) lower respiratory infection; J96.22 Acute and chronic respiratory failure with hypercapnia; I10 Essential (primary) hypertension; E11.65 Type 2 diabetes mellitus with hyperglycemia; E78.5 Hyperlipidemia, unspecified; J20.9 Acute bronchitis, unspecified; E53.8 Deficiency of other specified B group vitamins; K21.9 Gastro-esophageal reflux disease without esophagitis; G47.33 Obstructive sleep apnea (adult) (pediatric); Z66 Do not resuscitate; Z99.81 Dependence on supplemental oxygen; Z87.891 Personal history of nicotine dependence; Z90.49 Acquired absence of other specified parts of digestive tract; Z98.49 Cataract extraction status, unspecified eye; Z79.4 Long term (current) use of insulin; Z79.899 Other long term (current) drug therapy; Z79.82 Long term (current) use of aspirin

== ENCOUNTER → 2022-09-02 | Outpatient (CLI) | payer MEDICARE ==
[~2022-09-02] MED LIST changes: +B-12100010 PO; +IPRA0.00 INH; +MAGN400T2 PO; +TREL1AER INH
== END ==
LOC: M SLEEP 20:00
PROVIDERS: ATTEND Internal Medicine Pulmonary Disease
DX: G47.33 Obstructive sleep apnea (adult) (pediatric) (principal)

== ENCOUNTER 2022-09-08 11:08 | Inpatient (IN) | payer MEDICARE, OTHER ==
[~2022-09-08] VITALS: Ht 170.2 cm; Wt 77.3 kg
[2022-09-08] MEDS ORDERED: methylPREDNISolone 125MG 2ML VIAL IV ONE (12:15)
[2022-09-08 13:02] LABS: CPK CREATINE PHOSPHOKINASE < 15 U/L (34-145)
[2022-09-08 13:03] LABS: BASO % 0.1 % (0.0-1.0); EOS # 0.1 10^3/uL (0.0-0.5); EOS % 0.6 % (0.0-3.0); HEMATOCRIT 35.2 % (36.0-47.0); HEMOGLOBIN 10.8 g/dl (12.0-15.5); LYMPH # 1.2 10^3/uL (1.5-5.0); LYMPH % 7.8 % (24.0-44.0); MEAN CORPUSCULAR HEMOGLOBIN 31.6 pg (27.0-33.0); MEAN CORPUSCULAR HGB CONC 30.7 g/dl (32.0-36.5); MEAN CORPUSCULAR VOLUME 102.9 fl (80.0-96.0); MONO # 0.9 10^3/uL (0.0-0.8); MONO % 5.7 % (2.0-8.0); NEUTROPHILS # 13.4 10^3/uL (1.5-8.5); NEUTROPHILS % 85.4 % (36.0-66.0); PLATELET COUNT, AUTOMATED 211 10^3/uL (150-450); RED BLOOD COUNT 3.42 10^6/uL (4.00-5.40); WHITE BLOOD COUNT 15.7 10^3/uL (4.0-10.0)
[2022-09-08 13:39] LABS: ALBUMIN 2.4 G/DL (3.2-5.2); ALKALINE PHOSPHATASE 99 U/L (46-116); ALT/SGPT 17 U/L (7.0-40); AST/SGOT < 8 U/L (<34); BILIRUBIN,DIRECT 0.2 MG/DL (<0.4); BILIRUBIN,TOTAL 0.5 MG/DL (0.3-1.2); BLOOD UREA NITROGEN 25 MG/DL (9-23); CALCIUM LEVEL 8.9 MG/DL (8.3-10.6); CARBON DIOXIDE LEVEL 39 MMOL/L (20-31); CHLORIDE LEVEL 97 MMOL/L (98-107); CK-MB VALUE MASS < 1.0 NG/ML (<3.6); CREATININE FOR GFR 1.09 MG/DL (0.55-1.30); GLOMERULAR FILTRATION RATE 53.5 (>45); GLUCOSE, FASTING 285 MG/DL (74-106); SODIUM LEVEL 134 MMOL/L (136-145); THYROID STIMULATING HORMONE 0.692 uIU/ML (0.55-4.78); TOTAL PROTEIN 5.8 G/DL (5.7-8.2)
[2022-09-08 13:54] LABS: RSV AMPLIFICATION NEGATIVE (NEGATIVE)
[2022-09-08] MEDS: IPRATROPIUM 0.5MG/ALBUTEROL 2.5MG INH SOL UD 3ML (DUONEB) NEB PRN (14:17)
[2022-09-08 14:18] LABS: ABG BASE EXCESS 9.5 (-2.0-2.0); ABG HCO3 37.2 MEQ/L (22.0-26.0); ABG O2 SATURATION 97.2 % (95.0-99.0); ABG PARTIAL PRESSURE O2 96.2 mmHg (75.0-100.0); ABG STANDARD HCO3 33.2 MEQ/L (22.0-26.0); ABG TOTAL CO2 39.2 MEQ/L (23.0-31.0); ABG pH (ARTERIAL) 7.358 UNITS (7.350-7.450)
[2022-09-08 14:21] LABS: ABG PARTIAL PRESSURE CO2 67.6 mmHg (35.0-45.0)
[2022-09-08] MEDS ORDERED: IPRA0.00 INH (15:23)
[2022-09-08] MEDS ORDERED: MAGN400T2 PO (15:23)
[2022-09-08] MEDS ORDERED: NICO1DIS12 TOP (15:23)
[2022-09-08] MEDS ORDERED: HOME MED LIST COMPLETE! XX SCH (15:30)
[2022-09-08] MEDS ORDERED: FUROSEMIDE 40MG/4ML VIAL IV ONE (15:40)
[2022-09-08] MEDS ORDERED: ISOVUE-370 76% 100ML VIAL As Ordered ONE (15:47)
[2022-09-08] MEDS ORDERED: IPRATROPIUM 0.5MG/ALBUTEROL 2.5MG INH SOL UD 3ML (DUONEB) NEB SCH (16:00)
[2022-09-08] MEDS: INSULIN LISPRO (NovoLOG) PER UNIT SC SCH ×2 (16:30→21:44)
[2022-09-08 17:30] VITALS: BP 93/55
[2022-09-08] MEDS: PIPERACILLIN/TAZOBACTAM SOD 3.375 GM in D5W MINI-BAG PLUS 50 ML IV SCH (17:53)
[2022-09-08] MEDS ORDERED: AZITHROMYCIN 250MG TABLET PO ONE (18:00)
[2022-09-08] MEDS ORDERED: ALBUTEROL SULFATE 2.5MG/0.5ML INH NEB SOLN NEB SCH (20:00)
[2022-09-08] MEDS ORDERED: SYMBICORT 80/4.5MCG INHALER 6GM INH SCH (20:00)
[2022-09-08] MEDS: LEVALBUTEROL 1.25MG 0.5ML CONCENTRATE NEB INH SCH (20:07)
[2022-09-08] MEDS: SYMBICORT 160/4.5MCG INHALER 6GM INH SCH (20:07)
[2022-09-08] MEDS ORDERED: LEVEMIR (INSULIN DETEMIR) 1 UNITS/0.01ML SC SCH (21:00)
[2022-09-08 21:13] VITALS: BP_SYST 112; BP_SYST 96; BP_DIAS 48; BP_DIAS 57
[2022-09-08] MEDS: ATORVASTATIN 20 MG TAB PO SCH (21:44)
[2022-09-08] MEDS: NICOTINE 21MG/24HR 1 EA TRANSDERMAL TD SCH (22:18)
[2022-09-09] MEDS: PIPERACILLIN/TAZOBACTAM SOD 3.375 GM in D5W MINI-BAG PLUS 50 ML IV SCH ×4 (01:39→18:20)
[2022-09-09 05:28] LABS: ABG BASE EXCESS 9.2 (-2.0-2.0); ABG HCO3 37.2 MEQ/L (22.0-26.0); ABG O2 SATURATION 93.8 % (95.0-99.0); ABG PARTIAL PRESSURE O2 72.8 mmHg (75.0-100.0); ABG STANDARD HCO3 32.9 MEQ/L (22.0-26.0); ABG TOTAL CO2 39.4 MEQ/L (23.0-31.0); ABG pH (ARTERIAL) 7.334 UNITS (7.350-7.450)
[2022-09-09 05:30] LABS: ABG PARTIAL PRESSURE CO2 71.5 mmHg (35.0-45.0)
[2022-09-09 06:00] VITALS: BP 110/52
[2022-09-09 07:02] LABS: HEMATOCRIT 31.4 % (36.0-47.0); HEMOGLOBIN 9.7 g/dl (12.0-15.5); MEAN CORPUSCULAR HEMOGLOBIN 31.4 pg (27.0-33.0); MEAN CORPUSCULAR HGB CONC 30.9 g/dl (32.0-36.5); MEAN CORPUSCULAR VOLUME 101.6 fl (80.0-96.0); PLATELET COUNT, AUTOMATED 236 10^3/uL (150-450); RED BLOOD COUNT 3.09 10^6/uL (4.00-5.40); WHITE BLOOD COUNT 8.1 10^3/uL (4.0-10.0)
[2022-09-09 07:24] LABS: CALCIUM LEVEL 8.5 MG/DL (8.3-10.6); CREATININE FOR GFR 1.21 MG/DL (0.55-1.30); GLOMERULAR FILTRATION RATE 47.4 (>45); POTASSIUM SERUM 5.5 MMOL/L (3.5-5.1)
[2022-09-09] MEDS: TIOTROPIUM INHALER/CAPSULE (SPIRIVA) INH SCH (07:31)
[2022-09-09] MEDS: LEVALBUTEROL 1.25MG 0.5ML CONCENTRATE NEB INH SCH ×4 (07:32→19:36)
[2022-09-09] MEDS ORDERED: INSULIN LISPRO (NovoLOG) PER UNIT SC ONE (07:55)
[2022-09-09] MEDS: LEVEMIR (INSULIN DETEMIR) 1 UNITS/0.01ML SC SCH ×2 (07:56→21:38)
[2022-09-09] MEDS: INSULIN LISPRO (NovoLOG) PER UNIT SC SCH ×4 (07:57→21:37)
[2022-09-09] MEDS: CYANOCOBALAMIN 500 MCG TAB PO SCH (08:09)
[2022-09-09 08:10] VITALS: BP 118/58
[2022-09-09] MEDS: FUROSEMIDE 40 MG TAB PO SCH (08:10)
[2022-09-09] MEDS: predniSONE 20 MG TAB PO SCH (08:10)
[2022-09-09] MEDS: ASPIRIN 81MG ENTERIC TABLET PO SCH (08:10)
[2022-09-09] MEDS: AZITHROMYCIN 250MG TABLET PO SCH (08:10)
[2022-09-09] MEDS: SYMBICORT 160/4.5MCG INHALER 6GM INH SCH ×2 (08:17→19:36)
[2022-09-09] MEDS ORDERED: AZITHROMYCIN 250MG TABLET PO SCH (09:00)
[2022-09-09] MEDS ORDERED: SITagliptin 50 MG TAB (JANUVIA) PO SCH (10:40)
[2022-09-09] MEDS ORDERED: HumuLIN R (REGULAR) INSULIN (NovoLIN R) **100U/ML** PER UNIT IV STA (11:01)
[2022-09-09] MEDS ORDERED: INSULIN LISPRO (NovoLOG) PER UNIT SC SCH (12:00)
[2022-09-09 14:00] VITALS: BP 106/48
[2022-09-09] MEDS: ATORVASTATIN 20 MG TAB PO SCH (20:36)
[2022-09-09] MEDS: NICOTINE 21MG/24HR 1 EA TRANSDERMAL TD SCH (20:37)
[2022-09-09] MEDS: ENOXAPARIN 40MG/0.4ML SYRINGE (J1650 PER 10MG) SC SCH (20:37)
[2022-09-09 21:00] VITALS: BP 106/59
[2022-09-09] MEDS ORDERED: NICOTINE 21MG/24HR 1 EA TRANSDERMAL TD ONE (23:00)
[2022-09-10] MEDS: PIPERACILLIN/TAZOBACTAM SOD 3.375 GM in D5W MINI-BAG PLUS 50 ML IV SCH ×2 (01:04→06:21)
[2022-09-10 01:48] VITALS: O2SAT 98
[2022-09-10 05:35] VITALS: BP 102/48
[2022-09-10 05:51] LABS: ABG BASE EXCESS 13.9 (-2.0-2.0); ABG HCO3 40.7 MEQ/L (22.0-26.0); ABG O2 SATURATION 96.5 % (95.0-99.0); ABG PARTIAL PRESSURE CO2 65.3 mmHg (35.0-45.0); ABG PARTIAL PRESSURE O2 89.6 mmHg (75.0-100.0); ABG STANDARD HCO3 37.6 MEQ/L (22.0-26.0); ABG TOTAL CO2 42.7 MEQ/L (23.0-31.0); ABG pH (ARTERIAL) 7.413 UNITS (7.350-7.450)
[2022-09-10 06:38] LABS: HEMATOCRIT 31.2 % (36.0-47.0); HEMOGLOBIN 9.4 g/dl (12.0-15.5); MEAN CORPUSCULAR HEMOGLOBIN 31.1 pg (27.0-33.0); MEAN CORPUSCULAR HGB CONC 30.1 g/dl (32.0-36.5); MEAN CORPUSCULAR VOLUME 103.3 fl (80.0-96.0); PLATELET COUNT, AUTOMATED 262 10^3/uL (150-450); RED BLOOD COUNT 3.02 10^6/uL (4.00-5.40)
[2022-09-10 07:13] LABS: BLOOD UREA NITROGEN 27 MG/DL (9-23); CALCIUM LEVEL 8.6 MG/DL (8.3-10.6); CARBON DIOXIDE LEVEL > 40.0 MMOL/L (20-31); CHLORIDE LEVEL 99 MMOL/L (98-107); CREATININE FOR GFR 1.13 MG/DL (0.55-1.30); GLOMERULAR FILTRATION RATE 51.3 (>45); GLUCOSE, FASTING 96 MG/DL (74-106); POTASSIUM SERUM 4.7 MMOL/L (3.5-5.1); SODIUM LEVEL 143 MMOL/L (136-145)
[2022-09-10] MEDS: LEVALBUTEROL 1.25MG 0.5ML CONCENTRATE NEB INH SCH ×4 (07:30→19:38)
[2022-09-10] MEDS: SYMBICORT 160/4.5MCG INHALER 6GM INH SCH ×2 (07:30→19:38)
[2022-09-10] MEDS: INSULIN LISPRO (NovoLOG) PER UNIT SC SCH ×5 (07:30→20:58)
[2022-09-10] MEDS: TIOTROPIUM INHALER/CAPSULE (SPIRIVA) INH SCH (07:30)
[2022-09-10 08:03] LABS: ATYPICAL LYMPH 2 % (0-5); HYPOCHROMASIA 1+; LYMPHOCYTES 8 % (16-44); MONOCYTES 7 % (0-5); NEUTROPHILS 82 % (28-66)
[2022-09-10 08:04] LABS: PLATELET ESTIMATE NORMAL (NORMAL)
[2022-09-10] MEDS: LEVEMIR (INSULIN DETEMIR) 1 UNITS/0.01ML SC SCH ×2 (08:46→20:57)
[2022-09-10] MEDS: AZITHROMYCIN 250MG TABLET PO SCH (08:47)
[2022-09-10] MEDS: FUROSEMIDE 40 MG TAB PO SCH (08:47)
[2022-09-10] MEDS: CYANOCOBALAMIN 500 MCG TAB PO SCH (08:47)
[2022-09-10] MEDS: ASPIRIN 81MG ENTERIC TABLET PO SCH (08:47)
[2022-09-10] MEDS: predniSONE 20 MG TAB PO SCH (08:47)
[2022-09-10] MEDS: cefTRIAXone SOD 1 GM in D5W MINI-BAG PLUS 50 ML IV SCH (10:50)
[2022-09-10 14:00] VITALS: BP 109/46
[2022-09-10] MEDS: NICOTINE 21MG/24HR 1 EA TRANSDERMAL TD SCH (20:57)
[2022-09-10] MEDS: ATORVASTATIN 20 MG TAB PO SCH (20:58)
[2022-09-10] MEDS: ENOXAPARIN 40MG/0.4ML SYRINGE (J1650 PER 10MG) SC SCH (20:59)
[2022-09-10 21:36] VITALS: BP 119/56
[2022-09-11 05:40] VITALS: BP 105/58
[2022-09-11 06:57] LABS: HEMATOCRIT 31.8 % (36.0-47.0); HEMOGLOBIN 9.7 g/dl (12.0-15.5); MEAN CORPUSCULAR HEMOGLOBIN 31.4 pg (27.0-33.0); MEAN CORPUSCULAR HGB CONC 30.5 g/dl (32.0-36.5); MEAN CORPUSCULAR VOLUME 102.9 fl (80.0-96.0); PLATELET COUNT, AUTOMATED 252 10^3/uL (150-450); RED BLOOD COUNT 3.09 10^6/uL (4.00-5.40); WHITE BLOOD COUNT 7.2 10^3/uL (4.0-10.0)
[2022-09-11] MEDS: SYMBICORT 160/4.5MCG INHALER 6GM INH SCH ×2 (07:12→19:45)
[2022-09-11] MEDS: TIOTROPIUM INHALER/CAPSULE (SPIRIVA) INH SCH (07:12)
[2022-09-11] MEDS: LEVALBUTEROL 1.25MG 0.5ML CONCENTRATE NEB INH SCH ×4 (07:12→19:45)
[2022-09-11 07:30] LABS: BLOOD UREA NITROGEN 21 MG/DL (9-23); CALCIUM LEVEL 8.5 MG/DL (8.3-10.6); CARBON DIOXIDE LEVEL > 40.0 MMOL/L (20-31); CHLORIDE LEVEL 101 MMOL/L (98-107); CREATININE FOR GFR 0.88 MG/DL (0.55-1.30); GLOMERULAR FILTRATION RATE > 60.0 (>45); GLUCOSE, FASTING 131 MG/DL (74-106); MAGNESIUM LEVEL 1.6 MG/DL (1.8-2.4); POTASSIUM SERUM 4.4 MMOL/L (3.5-5.1); SODIUM LEVEL 144 MMOL/L (136-145)
[2022-09-11 08:03] LABS: ATYPICAL LYMPH 11 % (0-5); LYMPHOCYTES 16 % (16-44); MONOCYTES 7 % (0-5); NEUTROPHILS 64 % (28-66)
[2022-09-11 08:04] LABS: HYPOCHROMASIA 1+; PLATELET ESTIMATE NORMAL (NORMAL)
[2022-09-11] MEDS: MAG SULF 1GM/100ML (MAG RUN) 1 GM in IV 1 EA IV SCH ×2 (08:19→09:26)
[2022-09-11] MEDS: INSULIN LISPRO (NovoLOG) PER UNIT SC SCH ×5 (08:20→18:00)
[2022-09-11] MEDS: LEVEMIR (INSULIN DETEMIR) 1 UNITS/0.01ML SC SCH ×2 (08:21→20:50)
[2022-09-11] MEDS: CYANOCOBALAMIN 500 MCG TAB PO SCH (08:21)
[2022-09-11] MEDS: predniSONE 20 MG TAB PO SCH (08:22)
[2022-09-11] MEDS: ASPIRIN 81MG ENTERIC TABLET PO SCH (08:22)
[2022-09-11] MEDS: AZITHROMYCIN 250MG TABLET PO SCH (08:22)
[2022-09-11] MEDS: FUROSEMIDE 40 MG TAB PO SCH (08:23)
[2022-09-11 11:01] LABS: ABG BASE EXCESS 14.5 (-2.0-2.0); ABG HCO3 40.7 MEQ/L (22.0-26.0); ABG O2 SATURATION 92.3 % (95.0-99.0); ABG PARTIAL PRESSURE CO2 58.2 mmHg (35.0-45.0); ABG PARTIAL PRESSURE O2 61.4 mmHg (75.0-100.0); ABG STANDARD HCO3 38.2 MEQ/L (22.0-26.0); ABG TOTAL CO2 42.4 MEQ/L (23.0-31.0); ABG pH (ARTERIAL) 7.462 UNITS (7.350-7.450)
[2022-09-11] MEDS: cefTRIAXone SOD 1 GM in D5W MINI-BAG PLUS 50 ML IV SCH (11:10)
[2022-09-11 14:00] VITALS: BP 127/59
[2022-09-11] MEDS: ENOXAPARIN 40MG/0.4ML SYRINGE (J1650 PER 10MG) SC SCH (20:50)
[2022-09-11] MEDS: ATORVASTATIN 20 MG TAB PO SCH (20:51)
[2022-09-11] MEDS: NICOTINE 21MG/24HR 1 EA TRANSDERMAL TD SCH (20:52)
[2022-09-11] MEDS ORDERED: INSULIN LISPRO (NovoLOG) PER UNIT SC SCH (21:00)
[2022-09-11 21:23] VITALS: O2SAT 96
[2022-09-11 21:45] VITALS: BP 125/59
[2022-09-12 06:00] VITALS: BP 131/72
[2022-09-12 06:08] LABS: HEMATOCRIT 32.1 % (36.0-47.0); HEMOGLOBIN 9.9 g/dl (12.0-15.5); MEAN CORPUSCULAR HEMOGLOBIN 31.6 pg (27.0-33.0); MEAN CORPUSCULAR HGB CONC 30.8 g/dl (32.0-36.5); MEAN CORPUSCULAR VOLUME 102.6 fl (80.0-96.0); PLATELET COUNT, AUTOMATED 258 10^3/uL (150-450); RED BLOOD COUNT 3.13 10^6/uL (4.00-5.40); WHITE BLOOD COUNT 6.9 10^3/uL (4.0-10.0)
[2022-09-12 06:41] LABS: ATYPICAL LYMPH 3 % (0-5); LYMPHOCYTES 27 % (16-44); MONOCYTES 6 % (0-5); NEUTROPHILS 60 % (28-66); PLASMA CELL 1 % (0-0)
[2022-09-12 06:43] LABS: PLATELET ESTIMATE NORMAL (NORMAL); POLYCHROMASIA 1+
[2022-09-12 06:44] LABS: TEAR DROP CELLS 1+
[2022-09-12 06:48] LABS: BLOOD UREA NITROGEN 17 MG/DL (9-23); CALCIUM LEVEL 8.5 MG/DL (8.3-10.6); CARBON DIOXIDE LEVEL > 40.0 MMOL/L (20-31); CHLORIDE LEVEL 100 MMOL/L (98-107); CREATININE FOR GFR 0.95 MG/DL (0.55-1.30); GLOMERULAR FILTRATION RATE > 60.0 (>45); GLUCOSE, FASTING 88 MG/DL (74-106); MAGNESIUM LEVEL 1.8 MG/DL (1.8-2.4); POTASSIUM SERUM 4.2 MMOL/L (3.5-5.1); SODIUM LEVEL 143 MMOL/L (136-145)
[2022-09-12] MEDS: INSULIN LISPRO (NovoLOG) PER UNIT SC SCH (07:27)
[2022-09-12] MEDS: SYMBICORT 160/4.5MCG INHALER 6GM INH SCH (07:58)
[2022-09-12] MEDS: TIOTROPIUM INHALER/CAPSULE (SPIRIVA) INH SCH (07:58)
[2022-09-12] MEDS: LEVALBUTEROL 1.25MG 0.5ML CONCENTRATE NEB INH SCH ×2 (07:58→11:55)
[2022-09-12] MEDS: LEVEMIR (INSULIN DETEMIR) 1 UNITS/0.01ML SC SCH (08:02)
[2022-09-12] MEDS: AZITHROMYCIN 250MG TABLET PO SCH (08:04)
[2022-09-12] MEDS: ASPIRIN 81MG ENTERIC TABLET PO SCH (08:04)
[2022-09-12] MEDS: CYANOCOBALAMIN 500 MCG TAB PO SCH (08:04)
[2022-09-12] MEDS: FUROSEMIDE 40 MG TAB PO SCH (08:04)
[2022-09-12] MEDS: cefTRIAXone SOD 1 GM in D5W MINI-BAG PLUS 50 ML IV SCH (10:00)
[2022-09-12] MEDS ORDERED: CEFP200T PO (10:52)
[2022-09-12] MEDS ORDERED: AZIT-12 PO (10:52)
[2022-09-12] MEDS ORDERED: PRED10TA2 PO (10:52)
[2022-09-12] MEDS ORDERED: HUMA100I5 SC ×2 (10:52→11:27)
[2022-09-14 16:08] LABS: BODY FLUID CULTURE Not indicated. (.); LEGIONELLA ANTIGEN URINE Negative (Negative); ORGANISM ID Not indicated. (.); SPECIMEN SOURCE Urine (.); URINE STREP PNEUMONIAE ANTIGEN Negative (Negative)
== END 2022-09-12 12:50 | disposition home health service (06) | DRG 193 ==
LOC: M ED 11:08 → M ED INP 15:39 → ENRESERV 16:39 → M MSPAV 17:40 → OBSVTOIN 09-09 11:04
PROVIDERS: ADMIT Internal Medicine; ATTEND Internal Medicine
DX: J13 Pneumonia due to Streptococcus pneumoniae (principal); J96.21 Acute and chronic respiratory failure with hypoxia; J96.22 Acute and chronic respiratory failure with hypercapnia; J44.1 Chronic obstructive pulmonary disease with (acute) exacerbation; I50.32 Chronic diastolic (congestive) heart failure; E87.1 Hypo-osmolality and hyponatremia; J44.0 Chronic obstructive pulmonary disease with (acute) lower respiratory infection; G47.33 Obstructive sleep apnea (adult) (pediatric); K21.9 Gastro-esophageal reflux disease without esophagitis; I11.0 Hypertensive heart disease with heart failure; E87.5 Hyperkalemia; E11.65 Type 2 diabetes mellitus with hyperglycemia; J20.9 Acute bronchitis, unspecified; E78.5 Hyperlipidemia, unspecified; M19.90 Unspecified osteoarthritis, unspecified site; Z66 Do not resuscitate; D53.9 Nutritional anemia, unspecified; I25.10 Atherosclerotic heart disease of native coronary artery without angina pectoris; E83.42 Hypomagnesemia; Z99.81 Dependence on supplemental oxygen; Z90.49 Acquired absence of other specified parts of digestive tract; Z98.49 Cataract extraction status, unspecified eye; Z87.891 Personal history of nicotine dependence; Z79.82 Long term (current) use of aspirin; Z79.4 Long term (current) use of insulin; Z79.899 Other long term (current) drug therapy

== ENCOUNTER → 2023-07-09 | Outpatient (CLI) | payer MEDICARE, OTHER ==
[~2023-07-09] MED LIST changes: +CEFP200T PO; +GLIP5TAB17 PO; -GLIP5TAB8 PO; +HUMA100I5 SC; +NICO1DIS12 TOP
[2023-07-09 06:30] LABS: BASO % 0.3 % (0.0-1.0); EOS # 0.4 10^3/uL (0.0-0.5); EOS % 5.2 % (0.0-3.0); HEMATOCRIT 35.5 % (36.0-47.0); HEMOGLOBIN 11.5 g/dl (12.0-15.5); LYMPH % 27.3 % (24.0-44.0); MEAN CORPUSCULAR HEMOGLOBIN 31.7 pg (27.0-33.0); MEAN CORPUSCULAR HGB CONC 32.4 g/dl (32.0-36.5); MEAN CORPUSCULAR VOLUME 97.8 fl (80.0-96.0); MONO # 0.5 10^3/uL (0.0-0.8); MONO % 6.7 % (2.0-8.0); NEUTROPHILS # 4.5 10^3/uL (1.5-8.5); NEUTROPHILS % 60.4 % (36.0-66.0); PLATELET COUNT, AUTOMATED 231 10^3/uL (150-450); RED BLOOD COUNT 3.63 10^6/uL (4.00-5.40); WHITE BLOOD COUNT 7.5 10^3/uL (4.0-10.0)
[2023-07-09 06:58] LABS: ALBUMIN 3.2 G/DL (3.2-5.2); ALKALINE PHOSPHATASE 122 U/L (46-116); ALT/SGPT 11 U/L (7.0-40); AST/SGOT < 8 U/L (<34); BILIRUBIN,TOTAL 0.3 MG/DL (0.3-1.2); BLOOD UREA NITROGEN 14 MG/DL (9-23); CALCIUM LEVEL 8.9 MG/DL (8.3-10.6); CARBON DIOXIDE LEVEL 36 MMOL/L (20-31); CHLORIDE LEVEL 103 MMOL/L (98-107); CHOLESTEROL LEVEL 120 MG/DL (<200); CHOLESTEROL RISK RATIO 3.66 (<5); CREATININE FOR GFR 0.98 MG/DL (0.55-1.30); GLOMERULAR FILTRATION RATE > 60.0 (>45); GLUCOSE, FASTING 166 MG/DL (74-106); HDL CHOLESTEROL 32.7 MG/DL (>40); LDL CHOLESTEROL 34.7 MG/DL (<100); NON-HDL-C 87.3 MG/DL; SODIUM LEVEL 142 MMOL/L (136-145); TOTAL PROTEIN 6.8 G/DL (5.7-8.2); TRIGLYCERIDES LEVEL 263 MG/DL (<150)
[2023-07-09 07:21] LABS: HEMOGLOBIN A1c 7.2 % (4.0-6.0)
== END ==
LOC: M LAB 05:58
PROVIDERS: ATTEND Family Medicine
DX: E11.9 Type 2 diabetes mellitus without complications (principal)

== ENCOUNTER 2024-01-26 12:49 | Day surgery (SDC) | payer MEDICARE, MEDICAID ==
[~2024-01-26] VITALS: Ht 172.7 cm; Wt 84.4 kg
[~2024-01-26 12:49] MED LIST changes: +INSUHUMDS SC; +MIDAZOLAM INJ 2MG/2ML VIAL As Ordered ONE; +ONDA-282 PO; -ONDA4TAB6 PO; +fentaNYL 100 MCG/2 ML INJECTION As Ordered ONE
[2024-01-26] MEDS: LIDOCAINE 3.5 % 1ML OPHTH TOPICAL GEL OU ONE (13:24)
[2024-01-26] MEDS ORDERED: propofoL 200 MG/20 ML VIAL As Ordered ONE (13:52)
[2024-01-26] MEDS: LIDOCAINE 2% W/EPINEPHRINE 20ML VIAL **PRES FREE As Ordered ONE (14:53)
[2024-01-26] MEDS: TOBRADEX OPHTH OINT 3.5 GM As Ordered ONE (14:53)
[2024-01-26 15:18] VITALS: BP 151/72; TEMP 97.7; O2SAT 96
== END 2024-01-26 15:21 | disposition home or self-care (01) ==
LOC: M SDC 12:49
PROVIDERS: ATTEND Ophthalmology
DX: H02.413 Mechanical ptosis of bilateral eyelids (principal); E11.9 Type 2 diabetes mellitus without complications; G47.30 Sleep apnea, unspecified; I10 Essential (primary) hypertension; E78.00 Pure hypercholesterolemia, unspecified; J44.9 Chronic obstructive pulmonary disease, unspecified; Z99.81 Dependence on supplemental oxygen; M19.90 Unspecified osteoarthritis, unspecified site; F17.210 Nicotine dependence, cigarettes, uncomplicated; Z79.899 Other long term (current) drug therapy; Z79.4 Long term (current) use of insulin; Z79.84 Long term (current) use of oral hypoglycemic drugs
CPT/HCPCS: 67904; 88300; J2250; J3010

== ENCOUNTER → 2024-03-31 | Outpatient (CLI) | payer MEDICARE, MEDICAID ==
[~2024-03-31] MED LIST changes: +GLIP10TA15 PO; -GLIP10TA6 PO; -MIDAZOLAM INJ 2MG/2ML VIAL As Ordered ONE; -fentaNYL 100 MCG/2 ML INJECTION As Ordered ONE
== END ==
LOC: M RAD 09:09
PROVIDERS: ATTEND Internal Medicine Pulmonary Disease
DX: Z12.2 Encounter for screening for malignant neoplasm of respiratory organs (principal); F17.218 Nicotine dependence, cigarettes, with other nicotine-induced disorders; J43.2 Centrilobular emphysema; I70.0 Atherosclerosis of aorta

== ENCOUNTER → 2025-05-14 | Outpatient (CLI) | payer MEDICARE, MEDICAID ==
[~2025-05-14] MED LIST changes: -ADV250INH INH; +ADVA1AER9 INH; +GLIP-318 PO; -GLIP5TAB20 PO; -IBUP-1022 PO; +IBUP600T42 PO
== END ==
LOC: M RAD 07:15
PROVIDERS: ATTEND Internal Medicine Pulmonary Disease
DX: Z12.2 Encounter for screening for malignant neoplasm of respiratory organs (principal); F17.218 Nicotine dependence, cigarettes, with other nicotine-induced disorders